=== PATIENT | male | born 1970 | race Caucasian/White ===

== ENCOUNTER 2018-02-07 03:51 | Emergency (ER) | payer OTHER ==
[2018-02-07] MEDS ORDERED: IBUPROFEN 400 MG TAB ONE (04:16)
[2018-02-07] MEDS ORDERED: IBUPROFEN 200 MG TAB PO ONE (04:16)
--- NOTE | 2018-02-07 04:19 | ER ---
Nurse's Notes [facility] Name: Chris Monaco Jr Age: 47 yrs Sex: Male : 1970 Arrival Date: 02/07/2018 Time: 03:52 Bed 19 Private MD: Diagnosis: Contusion of right foot Presentation: 02/07 04:04 Presenting complaint: Patient states: "I dropped a water cooler on my right foot. I jd3 think it might be broke.". Transition of care: patient was not received from another setting of care. Onset of symptoms was February 07, 2018. Risk Assessment: Do you want to hurt yourself or someone else? Patient reports no desire to harm self or others. Initial Sepsis Screen: Does the patient meet any 2 criteria? HR > 90 bpm. Yes Does the patient have a suspected source of infection? No. Patient's initial sepsis screen is negative. Care prior to arrival: None. 04:04 Method Of Arrival: Wheelchair jd3 04:04 Acuity: MECHELLE 3 jd3 Triage Assessment: 04:11 Injury Description: pt reported dropping a water cool on right foot. jd3 Historical: - Allergies: 04:06 No Known Allergies; jd3 - Home Meds: 04:06 Advil Oral [Active]; jd3 - PMHx: 04:06 back problems; jd3 - PSHx: 04:06 Appendectomy; jd3 - Immunization history:: Adult Immunizations up to date. - Social history:: Smoking status: Patient uses tobacco products, smokes one pack cigarettes per day. - Ebola Screening: : Patient negative for fever greater than or equal to 101.5 degrees Fahrenheit, and additional compatible Ebola Virus Disease symptoms. Screenin:11 Abuse screen: Denies threats or abuse. Nutritional screening: No deficits noted. jd3 Tuberculosis screening: No symptoms or risk factors identified. Fall Risk Ambulatory Aid- None/Bed Rest/Nurse Assist (0 pts). Gait- Weak (10 pts.). Mental Status- Oriented to own ability (0 pts). Total Abdi Fall Scale indicates No Risk (0-24 pts). Assessment: 04:09 General: Appears uncomfortable, Behavior is cooperative, appropriate for age. Pain: jd3 Complains of pain in dorsum of right foot Pain currently is 10 out of 10 on a pain scale. Quality of pain is described as sharp, Pain began suddenly, Aggravated by weight bearing. Neuro: Level of Consciousness is awake, alert, obeys commands, Oriented to person, place, time, situation. Cardiovascular: Capillary refill < 3 seconds Patient's skin is warm and dry. Respiratory: Airway is patent Respiratory effort is even, unlabored, Respiratory pattern is regular, symmetrical. GI: Abdomen is round Patient currently denies diarrhea, nausea, vomiting. : No signs and/or symptoms were reported regarding the genitourinary system. EENT: No signs and/or symptoms were reported regarding the EENT system. Derm: Skin is intact, Skin is dry, Skin is normal, Skin temperature is warm. Musculoskeletal: Circulation, motion, and sensation intact. Range of motion: intact in all extremities, Swelling present in right foot. 04:30 Reassessment: Patient appears in no apparent distress at this time. Patient and/or jd3 family updated on plan of care and expected duration. Pain level reassessed. Patient is alert, oriented x 3, equal unlabored respirations, skin warm/dry/pink. pt reported understanding of discharge instructions, pt assisted to front of ER with wheelchair. Vital Signs: 04:08 BP 159 / 94; Pulse 101; Resp 20 S; Temp 98.4(O); Pulse Ox 98% on R/A; Weight 108.86 kg jd3 (R); Height 6 ft. 1 in. (185.42 cm) (R); Pain 10/10; 04:08 Body Mass Index 31.66 (108.86 kg, 185.42 cm) jd3 ED Course: 03:52 Patient arrived in ED. ds1 03:56 Remberto Delong, AVERY is Primary Nurse. jd3 03:59 Amador Adkins MD is Attending Physician. gs 04:05 Triage completed. jd3 04:08 Arm band placed on. jd3 04:11 Patient has correct armband on for positive identification. Bed in low position. Call jd3 light in reach. Side rails up X 1. Adult w/ patient. 04:19 Earle Costa MD is Referral Physician. gs 04:20 Foot Right 3 View XRAY In Process Unspecified. EDMS 04:31 No provider procedures requiring assistance completed. Patient did not have IV access jd3 during this emergency room visit. Administered Medications: 04:18 Drug: Ibuprofen 600 mg Route: PO; jd3 04:31 Follow up: Response: Medication administered at discharge. jd3 Outcome: 04:19 Discharge ordered by . kedar 04:31 Discharged to home via wheelchair, with family. jd3 04:31 Condition: stable 04:31 Discharge instructions given to patient, family, Instructed on discharge instructions, follow up and referral plans. Demonstrated understanding of instructions, follow-up care. 04:32 Patient left the ED. jd3 Addendum: 02/10/2018 11:28 Addendum: Radiology Result: Spoke with patient who reports pain has improved. Has not s s followed up with ortho doctor as of yet, but plans to soon now due to possible small fracture. Pt is grateful for followup call. Signatures: Dispatcher [employer] [facility] Ivette Lopez ds1 Lauren Jay, AVERY RN Amador Jara MD MD gs Davies, Jonathon, RN RN jd3
--- NOTE | 2018-02-07 04:19 | EDPHYS ---
Physician Documentation [facility] Name: Chris Monaco Jr Age: 47 yrs Sex: Male : 1970 Arrival Date: 02/07/2018 Time: 03:52 Bed 19 Private MD: ED Physician Amador Adkins HPI: 02/07 04:16 This 47 yrs old Male presents to ER via Wheelchair with complaints of Foot gs Injury. 04:16 The patient presents with an injury. The complaints affect the right foot. Context: The gs problem was sustained at home, resulted from a heavy object falling, igloo. Onset: The symptoms/episode began/occurred acutely. Modifying factors: the symptoms are aggravated by weight bearing. Associated signs and symptoms: Pertinent negatives: numbness, weakness. Severity of symptoms: At their worst the symptoms were moderate, in the emergency department the symptoms are unchanged. Historical: - Allergies: 04:06 No Known Allergies; jd3 - Home Meds: 04:06 Advil Oral [Active]; jd3 - PMHx: 04:06 back problems; jd3 - PSHx: 04:06 Appendectomy; jd3 - Immunization history:: Adult Immunizations up to date. - Social history:: Smoking status: Patient uses tobacco products, smokes one pack cigarettes per day. - Ebola Screening: : Patient negative for fever greater than or equal to 101.5 degrees Fahrenheit, and additional compatible Ebola Virus Disease symptoms. ROS: 04:16 All other systems are negative. gs Exam: 04:16 Head/Face: Normocephalic, atraumatic. Neck: Trachea midline, no thyromegaly or masses gs palpated, and no cervical lymphadenopathy. Supple, full range of motion without nuchal rigidity, or vertebral point tenderness. No Meningismus. Cardiovascular: Regular rate and rhythm with a normal S1 and S2. No gallops, murmurs, or rubs. Normal PMI, no JVD. No pulse deficits. Respiratory: Lungs have equal breath sounds bilaterally, clear to auscultation and percussion. No rales, rhonchi or wheezes noted. No increased work of breathing, no retractions or nasal flaring. Back: No spinal tenderness. No costovertebral tenderness. Full range of motion. Skin: Warm, dry with normal turgor. Normal color with no rashes, no lesions, and no evidence of cellulitis. 04:16 Constitutional: The patient appears alert, awake. 04:16 Musculoskeletal/extremity: Extremities: noted in the dorsum of right foot: swelling, tenderness, There is no evidence of deformity, ROM: intact in all extremities, Circulation is intact in all extremities. Vital Signs: 04:08 BP 159 / 94; Pulse 101; Resp 20 S; Temp 98.4(O); Pulse Ox 98% on R/A; Weight 108.86 kg jd3 (R); Height 6 ft. 1 in. (185.42 cm) (R); Pain 10/10; 04:08 Body Mass Index 31.66 (108.86 kg, 185.42 cm) jd3 MDM: 04:02 Patient medically screened. 04:16 Differential diagnosis: fracture, sprain, arthritis. Data reviewed: vital signs, nurses gs notes. Response to treatment: the patient's symptoms have mildly improved after treatment, and as a result, I will discharge patient. 04:20 Counseling: I had a detailed discussion with the patient and/or guardian regarding: the gs presence of at least one elevated blood pressure reading (>120/80) during this emergency department visit. Special discussion: I have referred the patient to see his PCP for further evaluation of high blood pressure. 02/07 04:03 Order name: Foot Right 3 View XRAY Administered Medications: 04:18 Drug: Ibuprofen 600 mg Route: PO; jd3 04:31 Follow up: Response: Medication administered at discharge. jd3 Disposition: 02/07/18 04:19 Discharged to Home. Impression: Contusion of right foot. - Condition is Stable. - Discharge Instructions: Foot Contusion, Managing Your High Blood Pressure. - Medication Reconciliation Form, Thank You Letter, Antibiotic Education, Prescription Opioid Use form. - Follow up: Private Physician; When: 2 - 3 days; Reason: Re-evaluation by your physician. Follow up: Earle Costa MD; When: 2 - 3 days; Reason: Re-evaluation by your physician. Signatures: Dispatcher [employer] EDMS Amador Adkins MD MD gs Davies, Jonathon RN RN jd3 Corrections: (The following items were deleted from the chart) 04:32 04:19 02/07/2018 04:19 Discharged to Home. Impression: Contusion of right foot. jd3 Condition is Stable. Forms are Medication Reconciliation Form, Thank You Letter, Antibiotic Education, Prescription Opioid Use. Follow up: Private Physician; When: 2 - 3 days; Reason: Re-evaluation by your physician. Follow up: Earle Costa; When: 2 - 3 days; Reason: Re-evaluation by your physician. gs
--- NOTE | 2018-02-07 11:36 | RAD REPORT ---
EXAM DESCRIPTION: RAD - Foot Right 3 View - 02/07/2018 4:20 am CLINICAL HISTORY: PAIN Blunt trauma. COMPARISON: No comparisons FINDINGS: Minimal fragmentation at the base of the proximal phalanx of the fifth toe is present comp atible with fracture. Mild adjacent soft tissue swelling. Prominent calcaneal spurs are seen.
== END 2018-02-07 04:32 | disposition home or self-care (01) ==
LOC: ER 03:51
DX: S90.31XA Contusion of right foot, initial encounter (principal); F17.210 Nicotine dependence, cigarettes, uncomplicated; W20.8XXA Other cause of strike by thrown, projected or falling object, initial encounter; Y93.9 Activity, unspecified; Y92.009 Unspecified place in unspecified non-institutional (private) residence as the place of occurrence of the external cause; Y99.9 Unspecified external cause status
CPT/HCPCS: 99283

== ENCOUNTER 2025-01-09 05:54 | Emergency (ER) | payer OTHER ==
--- OUTSIDE RECORDS SUMMARY | 2025-01-09 06:01 | XMS REPORT | Clinical Summary ---
Author Name Unknown Organization [facility] Address [address] [place] [address] Care Team Providers Care Transfer Engineer Name Role Phone Marion Mireles MD Unavailable [phone] Kim Mohan MD Unavailable [phone] Brandi Alvarez MD Primary Care Provider Jacquelin Ruiz RN Unavailable + [phone] Linda Castaneda MD Unavailable Wesley Bragg MD Unavailable [phone] Unavailable [phone] Allergies No known active allergies Medications * This document contains information received from the source organization and may not represent a complete record from that organization. magnesium hydroxide 400 mg/5 mL suspension Take 15 mL (1,200 mg) by mouth 2 (two) times a day as needed. Active simethicone (MYLICON) 80 mg chewable tabletIndicati ons:Abdominal bloating Chew and swallow 1 tablet (80 mg) by mouth 4 (four) times a day as needed for flatulence (Gas, Abdominal Bloating). 160 tablet 5 10:20 AM CDT 025 Active Disabled Parking PlacardIndicat ions:Adenocarc inoma of pancreas I am requesting a disabled parking placard for this patient because he/she meets the [place] [employer] criteria for disabilities. The patient will need the disabled parking placard for this length of time: Permanent disability. 1 each 025 Active naloxone (Narcan) 4 mg/actuation nasal sprayIndicatio ns:Neoplasm related pain (acute) (chronic) Use 1 dose into one nostril as needed for opioid overdose. Do not prime or test the inhaler prior to adminstration. Give another dose into the other nostril after 2 to 3 minutes if the patient does not respond or responds and then relapses into respiratory depression. 2 each 5 10:20 AM CDT 025 Active ondansetron (ZOFRAN) 8 mg tabletIndicati ons:Adenocarci noma of pancreas Take 1 tablet (8 mg) by mouth every 8 (eight) hours as needed for nausea or vomiting ((First choice)). 30 tablet 025 Active prochlorperazi ne (COMPAZINE) 10 mg tabletIndicati ons:Adenocarci noma of pancreas Take 1 tablet (10 mg) by mouth every 6 (six) hours as needed for nausea or vomiting ((Second Choice)). 60 tablet 025 Active loperamide (Imodium A-D) 2 mg tabletIndicati ons:Adenocarci noma of pancreas 2 tabs po 1st loose stool, then 1 tab q2h until diarrhea free for 12 hours. May take 2 tabs q4hrs at night. (First Choice) 100 tablet 025 Active diphenoxylate- atropine (LOMOTIL) 2.5 mg-0.025 mg per tabletIndicati ons:Adenocarci noma of pancreas Take 1-2 tablets by mouth every 6 (six) hours as needed for diarrhea (loose stool.(Second choice)). Not to exceed 8 tablets per day 60 tablet 025 Active dexAMETHasone (DECADRON) 4 mg tabletIndicati ons:Adenocarci noma of pancreas Take 1 tablet (4 mg) by mouth daily for 3 days on days 2, 3, and 4 of chemotherapy. Keep extra tablets for future cycles. 36 tablet 2 025 Active lidocaine-pril ocaine (EMLA) 2.5-2.5% creamIndicatio ns:Metastatic malignant neoplasm to liver,Adenocar cinoma of pancreas Apply to port-a-cath approximately 45 minutes prior to use 30 g 025 Active apixaban (Eliquis) 5 mg tabletIndicati ons:Portal vein thrombosis Take 1 tablet (5 mg) by mouth every 12 (twelve) hours. 60 tablet 3 025 Active fentaNYL (DURAGESIC) patch 25 mcg/hrIndicati ons:Neoplasm related pain (acute) (chronic) Place 1 patch (25 mcg) on the skin every 72 hours. Remove old patch(es) before replacing new patch(es). 10 patch Active baclofen (LIORESAL) 10 mg tabletIndicati ons:Adenocarci noma of pancreas,Chron ic hiccup Take 1 tablet (10 mg) by mouth every 8 (eight) hours as needed for hiccups. 90 tablet 1 Active morphine (MSIR) 15 mg IR tabletIndicati ons:Cancer associated pain Take half a tablet (7.5 mg) every 4 hours for moderate pain (4-6/10) OR 1 tablet (15 mg) every 4 hours as needed for severe pain (7-10/10). 120 tablet Active furosemide (Lasix) 40 mg tabletIndicati ons:Peripheral edema Take 1 tablet (40 mg) by mouth twice daily. 60 tablet 1 025 Active HYDROcodone-ac etaminophen (NORCO) 7.5 mg-325 mg per tablet Take 1 tablet by mouth as needed. 025 2024 Discontinued Linzess 290 mcg cap Take 290 mcg by mouth every morning before breakfast. 2024 Discontinued HYDROcodone-ac etaminophen (NORCO) 10 mg-325 mg per tabletIndicati ons:Neoplasm related pain (acute) (chronic) Take 1 tablet by mouth every 6 (six) hours as needed for moderate pain. 30 tablet 025 2024 Discontinued(S top Taking at Discharge) fentaNYL (DURAGESIC) 12 mcg/hr transdermal patchIndicatio ns:Neoplasm related pain (acute) (chronic) Place 1 patch (12 mcg) on the skin every 72 hours for 30 days. Remove old patch(es) before replacing new patch(es). 10 patch 025 2024 Discontinued(S top Taking at Discharge) enoxaparin (LOVENOX) 80 mg/0.8 mL prefilled syringeIndicat ions:Portal vein thrombosis Inject 0.8 mL (80 mg) under the skin every 12 (twelve) hours. 60 each 10:20 AM CDT 2024 Discontinued fentaNYL (DURAGESIC) patch 25 mcg/hrIndicati ons:Neoplasm related pain (acute) (chronic) Place 1 patch (25 mcg) on the skin every 72 hours. Remove old patch(es) before replacing new patch(es). 10 patch 10:20 AM CDT 025 2024 Discontinued(R eorder) pancrelipase (CREON) 12,000 units-38,000 units-60,000 units capsuleIndicat ions:Chronic steatorrhea Take 1 capsule (12,000 Units) by mouth 3 (three) times a day with meals for 45 days. 200 capsule 10:20 AM CDT 2024 Discontinued(R eorder) morphine (MSIR) 15 mg IR tabletIndicati ons:Cancer associated pain Take half a tablet (7.5 mg) every 4 hours for moderate pain (4-6/10) OR 1 tablet (15 mg) every 4 hours as needed for severe pain (7-10/10). 90 tablet 10:20 AM CDT 2024 Discontinued(R eorder) pancrelipase (CREON) 12,000 units-38,000 units-60,000 units capsuleIndicat ions:Chronic steatorrhea Take 1 capsule (12,000 Units) by mouth 3 (three) times a day with meals for 30 days. 200 capsule 3 025 2024 furosemide (Lasix) 20 mg tabletIndicati ons:Edema, not otherwise specified Take 1 tablet (20 mg) by mouth twice daily. 60 tablet 025 2024 Discontinued morphine (MSIR) 15 mg IR tabletIndicati ons:Cancer associated pain Take half a tablet (7.5 mg) every 4 hours for moderate pain (4-6/10) OR 1 tablet (15 mg) every 4 hours as needed for severe pain (7-10/10). 120 tablet 025 2024 Discontinued(R eorder) morphine (MSIR) 15 mg IR tabletIndicati ons:Cancer associated pain Take half a tablet (7.5 mg) every 4 hours for moderate pain (4-6/10) OR 1 tablet (15 mg) every 4 hours as needed for severe pain (7-10/10). 120 tablet 025 2024 Discontinued(R eorder) morphine (MSIR) 15 mg IR tabletIndicati ons:Cancer associated pain Take half a tablet (7.5 mg) every 4 hours for moderate pain (4-6/10) OR 1 tablet (15 mg) every 4 hours as needed for severe pain (7-10/10). 120 tablet 025 2024 Discontinued(R eorder) Active Problems Problem Noted Date Diagnosed Date Neutropenia 12/24/2024 Peripheral edema 12/24/2024 Adenocarcinoma of pancreas 11/16/2024 Cancer Staging:Clinical:Stage IV(cT4, cM1) - Signed by Kimi Lee PA on 11/30/2024 Stress and adjustment reaction 11/16/2024 Cancer associated pain 11/16/2024 Severe protein-calorie malnutrition 11/15/2024 Overview (11/15/2024): Energy Intake: < or equal to 75% of EER for > or equal to 1 month Weight Loss: >20% in 1 yr (based on stated UBW) Subcutaneous Fat Loss: Moderate Muscle Loss: Moderate Long-term use of anticoagulants 11/12/2024 Neoplasm related pain (acute) (chronic) 11/12/19 Slow transit constipation 11/11/2024 Nausea alone 11/11/2024 Decrease in appetite 11/11/2024 Malignant neoplasm related fatigue 11/11/2024 Other psychological or physi magen stress, not elsewhere classified 11/11/2024 Other insomnia 11/11/2024 Jaundice 11/11/2024 Retroperitoneal mass 11/10/2024 Metastatic malignant neoplasm to liver Portal vein thrombosis 11/10/2024 Hyperbilirubinemia 11/10/2024 Abdominal pain 11/10/2024 Cancer with lung metastasis 11/10/2024 Stenosis of duodenum 11/10/2024 Mass of pancreas 11/10/2024 Obstructive hyperbilirubinemia 11/10/2024 Advance care planning 11/10/2024 Encounters * This document contains information received from the source organization and may not represent a complete record from that organization. Date Type Department Care Team Description 01/08/2025 Nurse Triage [facility] [address] [place] [address] Kelly Garcia APRN 01/05/2025 1:30 PM CDT Telemedicine [facility] Medical Oncology [address] [facility] 3rd [place] [address] Linda Castaneda MD Metastatic malignant neoplasm to liver (Primary Dx); Adenocarcinoma of pancreas; Peripheral edema 01/05/2025 Orders Only [facility] Medical Oncology [address] [facility] 3rd [place] [address] Kimi Lee PA 12/31/2024 1:00 PM CDT Nutrition Clinical Nutrition For your Nutrition appointment location directions please call: Brandi Alvarez MD Brown, Melanie P, RD Total bilirubin above reference range; Retroperitoneal mass; Stenosis of duodenum; Mass of pancreas; Obstructive hyperbilirubinemia; Neoplasm related pain (acute) (chronic); Portal vein thrombosis; Chronic steatorrhea; Abdominal bloating; Long-term use of anticoagulants; Jaundice; Other insomnia; Other psychological or physical stress, not elsewhere classified; Malignant neoplasm related fatigue; Decrease in appetite; Nausea alone; Slow transit constipation; Advance care planning; Stricture of bile duct; Hyperbilirubinemia; Metastatic malignant neoplasm to liver; Adenocarcinoma of pancreas; Unintentional weight loss 12/31/2024 Orders Only [facility] [address] [facility] Main [facility], 7th [place] [address] Kimi Lee PA Metastatic malignant neoplasm to liver (Primary Dx); Adenocarcinoma of pancreas 12/29/2024 1:45 PM CDT Ancillary Procedure MD Denis Coleman [address] [facility] 2nd [place] [address] Linda Castaneda MD Peripheral edema 12/29/2024 Travel 12/28/2024 Telephone [facility] [address] [address] Jacquelin Ruiz, RN TCM Follow Up 12/27/2024 Telephone [facility] MGMT [address] [place] [address] Jacquelin Ruiz RN TCM Follow Up 12/26/2024 3:48 PM CDT - 12/26/2024 11:59 PM CDT Hospital Encounter [facility] Main Building [address] [place] [address], 10th [place] [address] Kimi Lee PA Kim, Sungjun, RN Adenocarcinoma of pancreas (Primary Dx) Discharge Disposition: Home 12/24/2024 12:00 PM CDT Infusion [facility] Blue [address] [facility], 8th [place] [address] Kimi Lee PA Balason, Adda Rica F, RN Adenocarcinoma of pancreas (Primary Dx) 12/24/2024 9:30 AM CDT Follow-Up [facility] [address] [place] [address], 7th [place] [address] Linda Castaneda MD Adenocarcinoma of pancreas (Primary Dx); Metastatic malignant neoplasm to liver; Peripheral edema; Neoplasm related pain (acute) (chronic); Neutropenia, not otherwise specified 12/24/2024 8:38 AM CDT - 12/24/2024 11:59 PM CDT Hospital Encounter [facility] [address] [place] [address] Kimi Lee PA Adenocarcinoma of pancreas Discharge Disposition: Home 12/24/2024 Travel 12/23/2024 Orders Only [facility] [address] [place] [address], 7th [place] [address] Katy Holt, PharmD 12/18/2024 Nurse Triage [facility] [address] [place], [place] [phone] Kelly Garcia APRN 12/17/2024 4:00 PM CDT - 12/17/2024 11:59 PM CDT Hospital Encounter MD Denis [facility] [address] [place] [address] Brandi Alvarez MD Wu, Pei H, PA-C Follow-up 2 weeks (Primary Dx); Central venous catheter in situ Discharge Disposition: Home 12/17/2024 Orders Only [facility] [address] [place] [address], [address] [place], [place] [phone] Katy Holt, PharmD 12/16/2024 10:00 AM CDT Telephone [facility] [address] [place] [address], [address] [place], [place] [phone] Linda Castaneda MD 12/16/[address] [address] Jacquelin Ruiz, RN [facility] Follow Up 12/15/2024 Orders Only Gastrointestinal [address], [address] [place], [place] [phone] Nadia Horvath RPH Adenocarcinoma of pancreas (Primary Dx) 12/13/2024 Telephone MD Denis Coleman - Infusion [address] [address] Elicia Matson RN 12/12/2024 12:46 PM CDT - 12/12/2024 11:59 PM CDT Hospital Encounter [facility] Treatment [facility] - [address], [facility] [place] [address] Kimi Lee PA Minoza, Jovelyn G, RN Adenocarcinoma of pancreas (Primary Dx) Discharge Disposition: Home 12/12/2024 Orders Only [facility] [address] [place] [address], 7th [place] [address] Linda Castaneda MD 12/12/2024 Documentation [facility] [address] [place] [address], 7th [place] [address] Katy Pham MD 12/10/2024 10:15 AM CDT Infusion [facility] - Infusion [address] [address] Linda Castaneda MD Bourgeois, Dominique L, AVERY Metastatic malignant neoplasm to liver (Primary Dx); Adenocarcinoma of pancreas 12/10/2024 Orders Only [facility] [address] [place] [address], [address] [place] [address] [place] [address] Katy Holt, PharmD 12/10/2024 Orders Only [facility] [address] [place] [address], [address] [place] [address] Kimi Lee PA Edema, not otherwise specified (Primary Dx) 12/10/2024 Travel 12/09/2024 Telephone [facility] MG[facility] [address] [place] [address] Jacquelin Ruiz, AVERY TCM Follow Up 12/08/2024 Orders Only [facility] - GI Medical Oncology [address] [address] [facility] 3rd [place] [address] Linda Castaneda MD Portal vein thrombosis (Primary Dx); Chronic steatorrhea 12/04/2024 Nurse Triage [facility] PHYSICIAN [address] [place] [address] Jaycee Escalera PA 12/03/2024 12:44 PM CDT Anesthesia Event [facility] [address] [place] [address] Luis Mcneal MD Tray, Chi E, FIELD EVIDENCE TECHNICIAN 12/03/2024 9:26 AM CDT - 12/03/2024 11:59 PM CDT Hospital Encounter [facility] [address] [place] [address] Kimi Lee PA Irwin, David, MD Idowu, Olakunle, MD Tsui, Chi E, CRNA Adenocarcinoma of pancreas Discharge Disposition: Home 12/03/2024 Travel 12/02/2024 4:30 PM CDT POEM Appointments [facility] [address] [place] [address], 6th Floor [facility] [place] [address] Adam Aponte PA Metastatic malignant neoplasm to liver 12/02/2024 9:30 AM CDT - 12/02/2024 11:59 PM CDT Hospital Encounter [facility] [address] [place] [address] Brandi Alvarez MD Wu, Pei H, PA-C Adenocarcinoma of pancreas (Primary Dx); Encounter for other preprocedural examination Discharge Disposition: Home 12/01/2024 11:59 PM CDT Anesthesia Event [facility] [address] [place] [address], 6th [facility] [place] [address] Khadra Jesus, RN 12/01/2024 Orders Only [facility] - GI Medical Oncology [address] [address] [facility] 3rd [place] [address] Kimi Lee PA Metastatic malignant neoplasm to liver (Primary Dx); Adenocarcinoma of pancreas 12/01/2024 Telephone [facility] [address] [phone] Jacquelin Ruiz, RN TCM Follow Up 11/30/2024 Prep for Surgery [facility] [address] [facility], 8th Floor [address] [place], [place] [phone] Nora Vigil, DISH UP PERSON 11/30/2024 Orders Only [facility] [address] [place] [address] Adam Aponte PA Metastatic malignant neoplasm to liver (Primary Dx) 11/29/2024 Orders Only [facility] [address] [place] [address], 7th [place] [address] Kimi Lee PA Adenocarcinoma of pancreas (Primary Dx) 11/29/2024 Lab Requisition [facility] HEMATOPATH ADMIN [address] [place] [address] [address] [place] [address] Kimi Lee PA 11/26/2024 11:00 AM CDT - 11/26/2024 11:59 PM CDT Hospital Encounter [facility] [address] [place] [address], 4th [place] [address] Wesley Bragg MD Neoplasm related pain (acute) (chronic) Discharge Disposition: Home 11/26/2024 10:00 AM CDT Consult [facility] [address] [place] [address], [address] [place], [place] [phone] Linda Castaneda MD Adenocarcinoma of pancreas (Primary Dx); Metastatic malignant neoplasm to liver; Unintentional weight loss; Metastatic adenocarcinoma to bilateral lungs; 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, not otherwise specified; Neoplasm related pain (acute) (chronic); Constipation, not otherwise specified; Tobacco use; Portal vein thrombosis; Peripheral edema 11/26/2024 8:57 AM CDT - 11/26/2024 10:59 AM CDT Hospital Encounter [facility] [address] [place] [address] Kimi Lee PA Metastatic malignant neoplasm to liver; Adenocarcinoma of pancreas Discharge Disposition: Home 11/26/2024 Orders Only [facility] [address] [place] [address], [address] [place], [place] [phone] Katy Holt, PharmD Adenocarcinoma of pancreas (Primary Dx) 11/26/2024 Travel 11/25/2024 Refill [facility] [address] [place], [place] [phone] Regino Bedoya DO 11/25/2024 Telephone [facility] MGMT [address] [place] [address] Jacquelin Ruiz RN TCM Follow Up 11/24/2024 Orders Only [facility] [address] [place] [address] [place] [address] Kimi Lee PA Metastatic malignant neoplasm to liver (Primary Dx); Adenocarcinoma of pancreas 11/19/2024 Documentation [facility] [address] [place] [address], 9th [place] [address] Niya Wu, RN 11/18/2024 Telephone [facility] [address] [place] [address] Mir Feliciano, DISH UP PERSON Discharge Call 11/18/2024 Telephone [facility] [address] [place] [address] Jacquelin Ruiz, RN [facility] Initial Call 11/17/2024 Documentation [facility] [address] [place] [address], 9th [place] [address] Niya Wu, AVERY 11/16/2024 Telephone [facility] [address] [place] [address] Jacquelin Ruiz, AVERY [facility] Initial Call 11/16/2024 Documentation [facility] [address] [place] [address] Jacquelin Ruiz, RN 11/11/2024 12:06 PM CDT Anesthesia Event [facility] [address] [place] [address], 5th Floor [address] [place] [phone] Kathy Scott MD 11/11/2024 11:25 AM CDT - 11/11/2024 1:30 PM CDT Surgery [facility] [address] [place] [address], 5th Floor [address] [place] [phone] Quintin Godinez MD DIAGNOSTIC UPPER GASTROINTESTINAL ENDOSCOPY 11/10/2024 6:07 AM CDT - 11/16/2024 9:34 AM CDT Hospital Encounter MAIN [address] [place] [address] Alan Catalan MD Sadiq, Nazia Mohammad, MD Omara, Ayman, MD Lane, John S, DO Leal Alviarez, Daniel J, MD Adenocarcinoma of pancreas (Primary Dx); Total bilirubin above reference range; Retroperitoneal mass; Stenosis of duodenum; Mass of pancreas; Obstructive hyperbilirubinemia; Neoplasm related pain (acute) (chronic); Portal vein thrombosis; Chronic steatorrhea; Abdominal bloating; Long-term use of anticoagulants; Jaundice; Other insomnia; Other psychological or physical stress, not elsewhere classified; Malignant neoplasm related fatigue; Decrease in appetite; Nausea alone; Slow transit constipation; Advance care planning; Stricture of bile duct; Hyperbilirubinemia; Metastatic malignant neoplasm to liver; Cancer associated pain Discharge Disposition: Home 11/10/2024 [facility] - Gastroenterology, Hepatology & Nutrition [address] [place] [address] Main [facility], 7th [place] [address] Rico Pagan MD Mass of pancreas (Primary Dx); Stenosis of duodenum; Obstructive hyperbilirubinemia 11/10/2024 Travel 11/09/2024 [facility] [address] [place] [address] Main [facility], 9th [place] [address] Brandi Alvarez MD 11/09/2024 [facility] Medicine Center [address] [place] [address] Main [facility], 9th [place] [address] Brandi Alvarez MD 11/09/2024 Travel 11/06/2024 5:57 AM CDT - 11/06/2024 11:59 PM CDT Hospital Encounter [facility] [address] [place] [address], 3rd [place] [address] Bernardo Muñiz APRN Multiple nodules of lung Discharge Disposition: Home 11/05/2024 11:00 AM CDT Telemedicine [facility] [address] [place] [address] Main [facility], 9th [place] [address] Brandi Alvarez MD Cyst of pancreas (Primary Dx); Retroperitoneal lymphadenopathy; Liver mass; Abnormal finding on diagnostic imaging of other abdominal region including retroperitoneum; Retroperitoneal mass <Unspecified side; Unspecified site; Intra-abdominal and pelvic swelling, mass and lump>; Neoplasm related pain (acute) (chronic) 11/04/2024 3:00 PM CDT NPR [facility] PATIENT ACCESS Brandi Alvarez MD 11/04/2024 Orders Only Main Interventional Radiology [address] [facility], 3rd [place] [address] Scarlet Anne PA-C Procedure indicated (Primary Dx) 11/04/2024 Telephone MD [facility] [address] [place] [address] Haley Chiang MA 11/04/2024 Orders Only [facility] [address] [facility] Main [facility], 9th [place] [address] Bernardo Muñiz APRN Liver mass (Primary Dx); Multiple nodules of lung 11/03/2024 8:00 PM CDT Ancillary Procedure [facility] [address] [place] [address] Brandi Alvarez MD Cancer 11/02/2024 Telephone [facility] PATIENT ACCESS Carter Maxwell RN after 01/10/2024 Surgical History Surgery Date Site/Laterality Comments APPENDECTOMY 1986 NOSE SURGERY 08/18/1990 - 1 plastic surgery [place] ESOPHAGOGASTRODUODENOSCOP Y TRANSORAL DIAGNOSTIC 11/11/2024 Esophagus/N/A Procedure: DIAGNOSTIC UPPER GASTROINTESTINAL ENDOSCOPY; Surgeon: Quintin Godinez MD; Location: MAIN ENDOSCOPY; Service: GASTROENTEROLOGY Medical devices from this surgery are in the Medical Devices section. [place] ERCP STENT PLACEMENT BILIARY/PANCREATIC DUCT 11/11/2024 N/A Procedure: ENDOSCOPIC RETROGRADE CHOLANGIOPANCREATOGRAPHY WITH PLACEMENT OF STENT OF BILE DUCT; Surgeon: Quintin Godinez MD; Location: MAIN ENDOSCOPY; Service: GASTROENTEROLOGY Medical devices from this surgery are in the Medical Devices section. [place] EGD INTRMURAL US NEEDLE ASPIRATE/BIOPSY ESOPHAGS 11/11/2024 N/A Procedure: UPPER GASTROINTESTINAL ENDOSCOPY OF ESOPHAGUS, STOMACH, AND DUODENUM AND JEJUNUM WITH ENDOSCOPIC ULTRASOUND EXAMINATION OF ESOPHAGUS AND INTRAMURAL FNA USING TRANSENDOSCOPIC ULTRASOUND GUIDANCE; Surgeon: Quintin Godinez MD; Location: MAIN ENDOSCOPY; Service: GASTROENTEROLOGY Medical devices from this surgery are in the Medical Devices section. Medical History Medical History Date Comments Arthritis Mass of pancreas Portal vein thrombosis Cancer with lung metastasis Stenosis of duodenum Nausea Constipation Family History Medical History Relation Name Comments Brain cancer Brother Liver cancer Father farhan Lung cancer Father farhan Relation Name Status Comments Brother Father farhan Social History Tobacco Use Types Packs/Day Years Used Date Smoking Tobacco: Some Days Cigarettes 1 37.1 Started: 11/21/1987 Smokeless Tobacco: Never Tobacco Cessation:Ready to Q uit: Yes Alcohol Use Standard Drinks/Week Comments Not Currently 0 (1 standard drink = 0.6 oz pur e alcohol) AUDIT-C Answer Date Recorded Q1: How often do you have a drink containing alcohol? Never 11/10/2024 Q2: How many drinks containi ng alcohol do you have on a typical day when you are drinking? Patient does not drink Q3: How often do you have si x or more drinks on one occasion? Never 11/10/2024 Sex and Gender Information Value Date Recorded Sex Assigned at Not on file Legal Sex Male 1:54 PM CDT Gender Identity Not on file Sexual Orientation Not on file Obstetrics History Last Filed Vital Signs Vital Sign Reading Time Taken Comments Blood Pressure 97/63 12/26/2024 4:09 PM CDT Pulse 95 12/26/2024 4:09 PM CDT Temperature 36.8 °C (98.2 °F) 12/26/2024 4:09 PM CD T Respiratory Rate 15 12/26/2024 4:09 PM CDT Oxygen Saturation 100% 12/26/2024 4:09 PM CDT Inhaled Oxygen Concentration - - Weight 90.7 kg (199 lb 15.3 oz) 025 4:09 PM CDT Height 179 cm (5' 10.47") 12/10/2024 10 :30 AM CDT Body Mass Index 28.31 12/10/2024 10:30 AM CDT Plan of Treatment Upcoming Encounters Date Type Department Care Team (Late st Contact Info) Description 01/14/2025 7:00 AM CDT Lab [facility] - [facility] [address] [address] Kimi Lee PA [address] [place] [phone] [email or web address] 01/14/2025 8:00 AM CDT Infusion MD [facility] [place] - Infusion [address] [place] [address] 4[address] [place] [address] Kimi Lee PA [address] [place] [phone] [email or web address] 01/16/2025 4:45 PM CDT Appointment [facility] - Main Building [address] [place] [address], 2nd Floor, Elev[place] [address] Kimi Lee PA [address] [place] [phone] [email or web address] 01/26/2025 1:00 PM CDT Nutrition Clinical Nutrition For your Nutrition appointment location directions please call: Brandi Alvarez MD [address] [place] [phone] [email or web address] [email or web address], [email or web address] [address] [place] [phone] [email or web address] 01/28/2025 8:15 AM CDT Lab MD [facility] [place] - [facility] [address] [place] [address] 1[address] [place] [address] Kimi Lee PA [address] [place] [phone] [email or web address] 01/28/2025 8:30 AM CDT Telemedicine [facility] [address] [place] [address], 7th [place] [address] Linda Castaneda MD [address] [place] [phone] [email or web address] 01/28/2025 9:00 AM CDT Infusion MD [facility] [place] - Infusion [address] [place] [address] Kimi Lee PA [address] [place] [phone] [email or web address] 01/30/2025 2:45 PM CDT Appointment [facility] - Main [address], 2nd Floor, Elev[place] [address] Kimi eLe PA [address] [place] [phone] [email or web address] 02/11/2025 7:45 AM CDT Lab MD [facility] [place] [facility] [address] [place] [address] Kimi Lee PA [address] [place] [phone] [email or web address] 02/11/2025 8:45 AM CDT Infusion MD [facility] [place] - Infusion [address] [place] [phone] Kimi Lee PA [address] [place] [phone] [email or web address] Health Maintenance Due Date Last Done Comments COVID-19 Vaccine (#1) 1975 Pneumococcal Vaccine: 50+ Years (1 of 2 - PCV) 989 Influenza Vaccine (Season Ended) 2025 Medical Devices Implanted Type Area Director Of Dementia Operations Device Identifier Shelf Expiration Date Model / Serial / Lot Elidia Marcos 8fr - [id number] Implanted:Qty: 1 on 12/03/2024 by Mark Zheng MD at [facility] Implant Right: Chest [employer] [id number] 10/15/2025 [id number] / / [id number] Wallflex Biliary Uncovered Stent [address] - [id number] Implanted:Qty: 1 on 11/11/2024 by Quintin Godinez MD at [facility] [place] Stent N/A: Bile Duct Barnana RAPHAEL [id number] 06/28/2026 [id number] / / [id number] Procedures Procedure Name Priority Date/Time Associated Diagnosis Comments US LEG VENOUS DOPPLER BILATERAL Routine 12/29/2024 3:28 PM CDT Peripheral edema DIFFERENTIAL Routine 12/24/2024 8:54 AM CDT Adenocarcinoma of pancreas .CBC Routine 12/24/2024 8:54 AM CDT Adenocarcinoma of pancreas CARBOHYDRATE ANTIGEN 19-9 Routine 2024 8:54 AM CDT Adenocarcinoma of pancreas COMPREHENSIVE METABOLIC PANEL Routine 8:54 AM CDT Adenocarcinoma of pancreas COMPLETE BLOOD COUNT W/ DIFFERENTIAL Routine 12/24/2024 8:54 AM CDT Adenocarcinoma of pancreas DIRECT AND INDIRECT BILIRUBIN Routine 9:24 AM CDT Adenocarcinoma of pancreas DIFFERENTIAL Routine 12/10/2024 9:24 AM CDT Adenocarcinoma of pancreas .CBC Routine 12/10/2024 9:24 AM CDT Adenocarcinoma of pancreas CARBOHYDRATE ANTIGEN 19-9 Routine 2024 9:24 AM CDT Adenocarcinoma of pancreas COMPREHENSIVE METABOLIC PANEL Routine 9:24 AM CDT Adenocarcinoma of pancreas COMPLETE BLOOD COUNT W/ DIFFERENTIAL Routine 12/10/2024 9:24 AM CDT Adenocarcinoma of pancreas IR FL PORT PLACEMENT 75 STAT 12/04/19 2:17 PM CDT Adenocarcinoma of pancreas TYPE AND SCREEN Routine 12/03/2024 9:23 AM CDT Metastatic malignant neoplasm to liver PROTHROMBIN TIME Routine 12/03/2024 9:23 AM CDT Metastatic malignant neoplasm to liver SHEREE MCCARTHY MDA APPLE - TISSUE (MUTATION ANALYSIS PRECISION PANEL-TISSUE) Routine 11/26/2024 10:55 AM CDT Adenocarcinoma of pancreas DEMETRIUS LO MD RNA HOLD Routine 11/26/2024 10:55 AM CDT Adenocarcinoma of pancreas NGS BLOOD CONTROL Routine 11/26/2024 9:08 AM CDT DIFFERENTIAL Routine 11/26/2024 9:08 AM CDT Metastatic malignant neoplasm to liver Adenocarcinoma of pancreas DIRECT AND INDIRECT BILIRUBIN Routine 9:08 AM CDT Metastatic malignant neoplasm to liver Adenocarcinoma of pancreas .CBC Routine 11/26/2024 9:08 AM CDT Metastatic malignant neoplasm to liver Adenocarcinoma of pancreas CARBOHYDRATE ANTIGEN 19-9 Routine 2024 9:08 AM CDT Metastatic malignant neoplasm to liver Adenocarcinoma of pancreas LACTATE DEHYDROGENASE Routine 11/26/2024 9:08 AM CDT Metastatic malignant neoplasm to liver Adenocarcinoma of pancreas PHOSPHORUS LEVEL Routine 11/26/2024 9:08 AM CDT Metastatic malignant neoplasm to liver Adenocarcinoma of pancreas MAGNESIUM LEVEL Routine 11/26/2024 9:08 AM CDT Metastatic malignant neoplasm to liver Adenocarcinoma of pancreas COMPREHENSIVE METABOLIC PANEL Routine 9:08 AM CDT Metastatic malignant neoplasm to liver Adenocarcinoma of pancreas COMPLETE BLOOD COUNT W/ DIFFERENTIAL Routine 11/26/2024 9:08 AM CDT Metastatic malignant neoplasm to liver Adenocarcinoma of pancreas .CBC Routine 11/16/2024 12:51 AM CDT HEPATIC FUNCTION PANEL Routine 12:51 AM CDT PHOSPHORUS LEVEL Routine 11/16/2024 12:51 AM CDT MAGNESIUM LEVEL Routine 11/16/2024 12:51 AM CDT COMPLETE BLOOD COUNT W/ DIFFERENTIAL Routine 11/16/2024 12:51 AM CDT BASIC METABOLIC PANEL, CALCI UM TOTAL Routine 11/16/2024 12:51 AM CDT ANTI-XA LEVEL Routine 11/15/2024 12:39 PM CDT .CBC Routine 11/15/2024 5:55 AM CDT BASIC METABOLIC PANEL, CALCI UM TOTAL Routine 11/15/2024 5:55 AM CDT COMPLETE BLOOD COUNT W/ DIFFERENTIAL Routine 11/15/2024 5:55 AM CDT MAGNESIUM LEVEL Routine 11/15/2024 5:55 AM CDT PHOSPHORUS LEVEL Routine 11/15/2024 5:55 AM CDT HEPATIC FUNCTION PANEL Routine 5:55 AM CDT .CBC Routine 11/14/2024 5:44 AM CDT COMPLETE BLOOD COUNT W/ DIFFERENTIAL Routine 11/14/2024 5:44 AM CDT BASIC METABOLIC PANEL, CALCI UM TOTAL Routine 11/14/2024 5:43 AM CDT MAGNESIUM LEVEL Routine 11/14/2024 5:43 AM CDT PHOSPHORUS LEVEL Routine 11/14/2024 5:43 AM CDT HEPATIC FUNCTION PANEL Routine 12:11 AM CDT .CBC Routine 11/13/2024 5:38 AM CDT BASIC METABOLIC PANEL, CALCI UM TOTAL Routine 11/13/2024 5:38 AM CDT COMPLETE BLOOD COUNT W/ DIFFERENTIAL Routine 11/13/2024 5:38 AM CDT MAGNESIUM LEVEL Routine 11/13/2024 5:38 AM CDT PHOSPHORUS LEVEL Routine 11/13/2024 5:38 AM CDT HEPATIC FUNCTION PANEL Routine 5:38 AM CDT .CBC Routine 11/12/2024 5:59 AM CDT BASIC METABOLIC PANEL, CALCI UM TOTAL Routine 11/12/2024 5:59 AM CDT COMPLETE BLOOD COUNT W/ DIFFERENTIAL Routine 11/12/2024 5:59 AM CDT MAGNESIUM LEVEL Routine 11/12/2024 5:59 AM CDT PHOSPHORUS LEVEL Routine 11/12/2024 5:59 AM CDT HEPATIC FUNCTION PANEL Routine 5:59 AM CDT SHEREE MCCARTHY ARCHIVED MATERIAL RETRIEVAL Routine 11/11/2024 12:47 PM CDT Stenosis of duodenum Mass of pancreas Obstructive hyperbilirubinemia CYTOLOGY IMAGE-GUIDED FNA INTERPRETATION Routine 11/11/2024 12:47 PM CDT Stenosis of duodenum Mass of pancreas Obstructive hyperbilirubinemia FL ENDOSCOPY FLUOROSCOPY Routine 025 11:57 AM CDT KS EGD INTRMURAL US NEEDLE ASPIRATE/BIOPSY ESOPHAGS 11/11/2024 11:56 AM CDT Stenosis of duodenum Mass of pancreas Obstructive hyperbilirubinemia KS ERCP STENT PLACEMENT BILIARY/PANCREATIC DUCT 11/11/2024 11:56 AM CDT Stenosis of duodenum Mass of pancreas Obstructive hyperbilirubinemia KS ESOPHAGOGASTRODUODENOSCOP Y TRANSORAL DIAGNOSTIC 11/11/2024 11:56 AM CDT Stenosis of duodenum Mass of pancreas Obstructive hyperbilirubinemia .CBC Routine 11/11/2024 6:00 AM CDT LACTIC ACID, VENOUS Routine 11/11/2024 6:00 AM CDT BASIC METABOLIC PANEL, CALCI UM TOTAL Routine 11/11/2024 6:00 AM CDT COMPLETE BLOOD COUNT W/ DIFFERENTIAL Routine 11/11/2024 6:00 AM CDT MAGNESIUM LEVEL Routine 11/11/2024 6:00 AM CDT PHOSPHORUS LEVEL Routine 11/11/2024 6:00 AM CDT XR ABDOMEN 1 VW PORTABLE Routine 025 6:[address] ABDOMEN PELVIS W CONTRAST STAT 8:54 AM CDT .CBC STAT 11/10/2024 6:46 AM CDT LACTIC ACID, VENOUS STAT 11/10/2024 6:46 AM CDT LIPASE LEVEL STAT 11/10/2024 6:46 AM CDT HEPATIC FUNCTION PANEL STAT 6:46 AM CDT BASIC METABOLIC PANEL, CALCI UM TOTAL STAT 11/10/2024 6:46 AM CDT COMPLETE BLOOD COUNT W/ DIFFERENTIAL STAT 11/10/2024 6:46 AM CDT CONFIRM ABORH TYPE Routine 11/09/2024 9:47 AM CDT Procedure indicated DIRECT AND INDIRECT BILIRUBIN Routine 9:46 AM CDT Cyst of pancreas Retroperitoneal lymphadenopathy Liver mass Abnormal finding on diagnostic imaging of other abdominal region including retroperitoneum .CBC Routine 11/09/2024 9:46 AM CDT Procedure indicated BETA 2 MICROGLOBULIN Routine 11/09/2024 9:46 AM CDT Cyst of pancreas Retroperitoneal lymphadenopathy Liver mass Abnormal finding on diagnostic imaging of other abdominal region including retroperitoneum ALPHA FETOPROTEIN TUMOR MARKER Routine 0 11/09/2024 9:46 AM CDT Cyst of pancreas Retroperitoneal lymphadenopathy Liver mass Abnormal finding on diagnostic imaging of other abdominal region including retroperitoneum LACTATE DEHYDROGENASE Routine 11/09/2024 9:46 AM CDT Cyst of pancreas Retroperitoneal lymphadenopathy Liver mass Abnormal finding on diagnostic imaging of other abdominal region including retroperitoneum CARCINOEMBRYONIC ANTIGEN Routine 025 9:46 AM CDT Cyst of pancreas Retroperitoneal lymphadenopathy Liver mass Abnormal finding on diagnostic imaging of other abdominal region including retroperitoneum CARBOHYDRATE ANTIGEN 19-9 Routine 2024 9:46 AM CDT Cyst of pancreas Retroperitoneal lymphadenopathy Liver mass Abnormal finding on diagnostic imaging of other abdominal region including retroperitoneum LIPASE LEVEL Routine 11/09/2024 9:46 AM CDT Cyst of pancreas Retroperitoneal lymphadenopathy Liver mass Abnormal finding on diagnostic imaging of other abdominal region including retroperitoneum AMYLASE LEVEL Routine 11/09/2024 9:46 AM CDT Cyst of pancreas Retroperitoneal lymphadenopathy Liver mass Abnormal finding on diagnostic imaging of other abdominal region including retroperitoneum HEPATITIS C VIRUS ANTIBODY Routine 11/09 9:46 AM CDT Cyst of pancreas Retroperitoneal lymphadenopathy Liver mass Abnormal finding on diagnostic imaging of other abdominal region including retroperitoneum HEPATITIS B CORE ANTIBODY Routine 2024 9:46 AM CDT Cyst of pancreas Retroperitoneal lymphadenopathy Liver mass Abnormal finding on diagnostic imaging of other abdominal region including retroperitoneum HEPATITIS B SURFACE ANTIGEN Routine 10/17 9:46 AM CDT Cyst of pancreas Retroperitoneal lymphadenopathy Liver mass Abnormal finding on diagnostic imaging of other abdominal region including retroperitoneum HEPATITIS B SURFACE ANTIBODY Routine 9:46 AM CDT Cyst of pancreas Retroperitoneal lymphadenopathy Liver mass Abnormal finding on diagnostic imaging of other abdominal region including retroperitoneum APTT Routine 11/09/2024 9:46 AM CDT Cyst of pancreas Retroperitoneal lymphadenopathy Liver mass Abnormal finding on diagnostic imaging of other abdominal region including retroperitoneum COMPREHENSIVE METABOLIC PANEL Routine 9:46 AM CDT Cyst of pancreas Retroperitoneal lymphadenopathy Liver mass Abnormal finding on diagnostic imaging of other abdominal region including retroperitoneum TYPE AND SCREEN Routine 11/09/2024 9:46 AM CDT Procedure indicated PROTHROMBIN TIME Routine 11/09/2024 9:46 AM CDT Procedure indicated COMPLETE BLOOD COUNT W/ DIFFERENTIAL Routine 11/09/2024 9:46 AM CDT Procedure indicated EKG, 12-LEAD (SCHEDULED) Routine 11/09/2024 Cyst of pancreas Retroperitoneal lymphadenopathy Liver mass Abnormal finding on diagnostic imaging of other abdominal region including retroperitoneum CT CHEST W CONTRAST Routine 11/06/2024 7:24 AM CDT Multiple nodules of lung POC CREATININE Routine 11/06/2024 6:[address] ABDOMEN AND PELVIS Routine 2024 8:08 PM CDT Cancer after 01/10/2024 Results * US Leg Venous Doppler Bilateral (12/29/2024 3:28 PM CDT) Anatomical Region Laterality Modality Leg, Extremity Ultrasound 12/29/2024 8:13 PM CDT Impressions 12/29/2024 8:16 PM CDT No deep venous thrombosis in the bilateral lower extremities. ACTIONABLE ITEMS/RECOMMENDATIONS*: See impression and findings. *An Actionable Finding is a finding that may be unrelated to the original reason for imaging but potentially actionable, meaning further investigation may be necessary. The Actionable Findings Vigilance Unit (AFVU) assists medical providers with responding to additional radiologic findings that are unexpected and potentially actionable. Narrative 12/29/2024 8:16 PM CDT Examination: US LEG VENOUS DOPPLER BILATERAL on 12/29/2024 3:28 PM. Clinical History: Peripheral edema. Indication: Edema, bilateral 3+ edema in patient with PE, evaluate for proximal clot. Comparison: None available. TECHNIQUE: Sonographic evaluation of the deep veins of the bilateral lower extremities is performed assessing grayscale appearance, color and spectral Doppler flow and compressibility. FINDINGS: The bilateral common femoral, femoral, proximal deep femoral, and popliteal veins and saphenofemoral junction demonstrate color flow and compressibility. The visualized bilateral peroneal, anterior tibial and posterior tibial veins demonstrate color flow. Edema is identified in the subcutaneous soft tissues of the bilateral lower extremities. Of note, limited visualization/evaluation of the bilateral external iliac veins did not demonstrate any definite thrombus. Incidental note was made of probable ascites in the pelvis. Procedure Note Beba Means MD - 12/29/2024 Examination: US LEG VENOUS DOPPLER BILATERAL on 12/29/2024 3:28 PM. Clinical History: Peripheral edema. Indication: Edema, bilateral 3+ edema in patient with PE, evaluate forproximal clot. Comparison: None available. TECHNIQUE: Sonographic evaluation of the deep veins of the bilaterallower extremities is performed assessing grayscale appearance, color andspectral Doppler flow and compressibility. FINDINGS: The bilateral common femoral, femoral, proximal deep femoral, andpopliteal veins and saphenofemoral junction demonstrate color flow andcompressibility. The visualized bilateral peroneal, anterior tibial and posterior tibialveins demonstrate color flow. Edema is identified in the subcutaneous soft tissues of the bilaterallower extremities. Of note, limited visualization/evaluation of the bilateral external iliacveins did not demonstrate any definite thrombus. Incidental note was made of probable ascites in the pelvis. IMPRESSION: No deep venous thrombosis in the bilateral lower extremities. ACTIONABLE ITEMS/RECOMMENDATIONS*: See impression and findings. *An Actionable Finding is a finding that may be unrelated to the originalreason for imaging but potentially actionable, meaning furtherinvestigation may be necessary. The Actionable Findings Vigilance Unit(AFVU) assists medical providers with responding to additional radiologicfindings that are unexpected and potentially actionable. us Linda Castaneda MD [facility] US ORDERABLES Final Result * (ABNORMAL) .CBC (12/24/2024 8:54 AM CDT) Only the most recent of11 resultswithin the time period is included. White Blood Cell 2.5(L) 4.1 - 10.5 K/uL 12/24/2024 10:51 AM CDT [facility] Red Blood Cell 3.31(L) 4.30 - 6.04 M/uL 12/24/2024 10:51 AM CDT [facility] Hemoglobin 11.0(L) 13.3 - 17.4 g/dL 12/24/2024 10:51 AM CDT [facility] Hematocrit 31.2(L) 39.5 - 51.8 % 12/24/2024 10:51 AM CDT [facility] Mean Cell Volume 94 82 - 99 fL 12/24/2024 10:51 AM CDT [facility] Mean Cell Hemoglobin 33.2 26.6 - 33.2 pg 12/24/2024 10:51 AM CDT [facility] Mean Cell Hemoglobin Concentration 35.3(H) 31.1 - 35.2 g/dL 12/24/2024 10:51 AM CDT [facility] RDW-SD 48.8 37.5 - 49.7 fL 12/24/2024 10:51 AM CDT [facility] Red Cell Diameter Width 14.3 11.6 - 15.5 % 12/24/2024 10:51 AM CDT [facility] Platelet 145(L) 160 - 397 K/uL 12/24/2024 10:51 AM CDT [facility] Mean Platelet Volume 9.8 9.1 - 12.6 fL 12/24/2024 10:51 AM CDT [facility] INRBC 0.0 0.0 - 0.1 /100 WBC 12/24/2024 10:51 AM CDT [facility] Comment: The INRBC (instrument NRBC) value reflects the enumeration of nucleated red blood cells contained in a 200uL sample of whole blood analyzed by the instrument. This value may differ from the NRBC value reported in a manual differential, which is based on a 100 cell differential. Blood Peripheral blood specimen / Unknown Venipuncture / Unknown 12/24/2024 8:54 AM CDT 12/24/2024 8:59 AM CDT us Kimi CAPUTO LAB BLOOD ORDERABLES Final Res ult [facility] Unless otherwise noted, all lab tests performed by: Division of Pathology and Laboratory Medicine [address] [place] [id number] * (ABNORMAL) Comprehensive Metabolic Panel (12/24/2024 8:54 AM CDT) Only the most recent of4 resultswithin the time period is included. Bilirubin Total 1.2 0.0 - 1.2 mg/dL 12/24/2024 9:46 AM CDT [facility] Comment:Indocyanine Green (I CG) may cause falsely elevated bilirubin results. Total and direct bilirubin must not be measured from samples containing indocyanine green. False elevation of total bilirubin can be seen in patients with IgG concentrations above 28 g/L. eGFR 121 >=60 mL/min/1. 73 sq. m 12/24/2024 9:46 AM CDT [facility] Comment: The eGFRcr is calculated with the 2020 CKD-EPI creatinine equation using creatinine, patient's age, and sex for adults 18 years of age and older. Other factors, especially muscle mass, may affect accuracy and need to be considered. According to the Kidney Disease: Improving Global Outcomes (KDIGO) CKD Work Group 2012 Clinical Practice Guideline, chronic kidney disease (CKD) is defined as the abnormalities of kidney structure or function, present for more than 3 months, with implications for health. CKD should be classified by cause, GFR category, and albuminuria category. KDIGO guidelines provide the following GFR categories. Stage / Description / GFR mL/min/1.73 m2: G1* / Normal or high / >= 90 G2* / Mildly decreased / 60-89 G3a / Mildly to moderately decreased / 45-59 G3b / Moderately to severely decreased / 30-44 G4 / Severely decreased / 15-29 G5 / Kidney failure / <15 *In the absence of evidence of kidney damage, neither G1 nor G2 fulfill criteria for CKD. Tot Protein 6.8 6.4 - 8.3 gm/dL 12/24/2024 9:46 AM T [facility] Calcium Level Total 9.3 8.2 - 10.2 mg/dL 12/24/2024 9:46 AM [facility] Alkaline Phosphatase 210(H) 40 - 129 U/L 12/24/2024 9:46 AM [facility] Albumin Level 3.5 3.5 - 5.2 gm/dL 12/24/2024 9:46 AM [facility] AST 51(H) <=40 U/L 12/24/2024 9:46 AM [facility] ALT 48(H) <=41 U/L 12/24/2024 9:46 AM T [facility] Sodium Level 135(L) 136 - 145 mmol/L 12/24/2024 9:46 AM [facility] Potassium Level 4.0 3.4 - 4.5 mmol/L 12/24/2024 9:46 AM [facility] Chloride 99 98 - 107 mmol/L 12/24/2024 9:46 AM [facility] CO2 26 22 - 29 mmol/L 12/24/2024 9:46 AM [facility] Anion Gap 10 4 - 14 mmol/L 12/24/2024 9:46 AM CDT [facility] Creatinine 0.49(L) 0.67 - 1.17 mg/dL 12/24/2024 9:46 AM CDT [facility] BUN 11 6 - 23 mg/dL 12/24/2024 9:46 AM CDT [facility] Glucose Level 89 70 - 99 mg/dL 12/24/2024 9:46 AM CDT [facility] Comment: Effective 03/13/16, the glucose reference intervals have been updated based on [place] [employer] guidelines (Standards of Medical Care in Diabetes 2016. Diabetes Care 2016; 39: S13-S22). Fasting blood glucose: Normal: 70-99 mg/dL Impaired fasting glucose (increased risk for diabetes or pre-diabetes): 100-125 mg/dL Diabetes mellitus: >/=126 mg/dL Random blood glucose: Normal: 70-199 mg/dL Note: Random glucose >100 mg/dL is associated with increased risk for diabetes. Blood Peripheral blood specimen / Unknown Venipuncture / Unknown 12/24/2024 8:54 AM CDT 12/24/2024 8:59 AM CDT us Kimi CAPUTO LAB BLOOD ORDERABLES Final Res ult [facility] Unless otherwise noted, all lab tests performed by: Division of Pathology and Laboratory Medicine [address] [place] [id number] * (ABNORMAL) CA 19-9 (12/24/2024 8:54 AM CDT) Only the most recent of4 resultswithin the time period is included. CA 19-9 52,200.0(H) <=35.0 U/mL 12/24/2024 12:43 PM CDT [facility] Blood Peripheral blood specimen / Unknown Venipuncture / Unknown 12/24/2024 8:54 AM CDT 12/24/2024 8:59 AM CDT Narrative [facility] - 12/24/2024 12:43 PM CDT Results greater than 9500 U/mL may not be reliable due to matrix effect with extended dilution as it exceeds the director of capital giving's recommended limit. Caution should be exercised when interpreting such values and done in conjunction with clinical context. This test is measured by electrochemiluminescence immunoassay on [employer]vel[employer] immunoassay analyzers. Results obtained in different methods are not interchangeable. us Kimi CAPUTO LAB BLOOD ORDERABLES Final Res ult [facility] Unless otherwise noted, all lab tests performed by: Division of Pathology and Laboratory Medicine [address] [place] [id number] * (ABNORMAL) Differential (12/24/2024 8:54 AM CDT) Only the most recent of3 resultswithin the time period is included. Total Cells 100 12/24/2024 10:51 AM CDT [facility] Manual Neutrophil % 51.0 43.2 - 72.7 % 12/24/2024 10:51 AM CDT [facility] Comment:The Neutrophil count includes Bands. Manual Lymphocyte % 31.0 16.8 - 46.2 % 12/24/2024 10:51 AM CDT [facility] Manual Monocyte % 13.0(H) 5.1 - 12.5 % 12/24/2024 10:51 AM CDT [facility] Manual Eosinophil % 4.0 0.4 - 6.3 % 12/24/2024 10:51 AM CDT [facility] Manual Basophil % 1.0 0.2 - 1.4 % 12/24/2024 10:51 AM CDT [facility] Metamyelocyte % 10:51 AM CDT [facility] Comment:The Metamyelocyte co unt includes Myelocytes. Manual Neutrophil Abs 1.28(L) 1.95 - 7.25 K/uL 12/24/2024 10:51 AM CDT [facility] Manual Lymphocyte Abs 0.78(L) 1.01 - 3.24 K/uL 12/24/2024 10:51 AM CDT [facility] Manual Monocyte Abs 0.33 0.24 - 0.85 K/uL 12/24/2024 10:51 AM CDT [facility] Manual Eosinophil Abs 0.10 0.02 - 0.50 K/uL 12/24/2024 10:51 AM CDT [facility] Manual Basophil Abs 0.03 0.02 - 0.09 K/uL 12/24/2024 10:51 AM CDT [facility] RBC Morphology PRESENT 12/24/2024 10:51 AM CDT [facility] PLT Morph Normal Normal 12/24/2024 10:51 AM CDT [facility] Anisocytosis Present(A) (none) 12/24/2024 10:51 AM CDT [facility] Ovalocyte Present(A) (none) 12/24/2024 10:51 AM CDT [facility] Josefina Cells Present(A) (none) 12/24/2024 10:51 AM CDT [facility] Slide Comment SEE NOTE 12/24/2024 10:51 AM CDT [facility] Comment:Platelet morphology normal. Blood Peripheral blood specimen / Unknown Venipuncture / Unknown 12/24/2024 8:54 AM CDT 12/24/2024 8:59 AM CDT us Kimi [facility]O LAB BLOOD ORDERABLES Final Res ult [facility] Unless otherwise noted, all lab tests performed by: Division of Pathology and Laboratory Medicine [address] [place] [id number] * (ABNORMAL) Direct and Indirect Bilirubin (12/10/2024 9:24 AM CDT) Only the most recent of3 resultswithin the time period is included. Bilirubin Direct 1.0(H) 0.0 - 0.2 mg/dL 12/10/2024 10:31 AM T [facility] Comment:Indocyanine Green (I CG) may cause falsely elevated bilirubin results. Total and direct bilirubin must not be measured from samples containing indocyanine green. Bilirubin Indirect 0.4 0.0 - 1.0 mg/dL 12/10/2024 10:31 AM T [facility] Blood Peripheral blood specimen / Unknown Venipuncture / Unknown 12/10/2024 9:24 AM CDT 12/10/2024 9:24 AM CDT us Kimi [facility] LAB BLOOD ORDERABLES Final Res ult [facility] [address] [facility], [facility] [address] [place] [address] * IR FL PORT PLACEMENT (12/03/2024 2:17 PM CDT) Anatomical Region Laterality Modality X-Ray Angiograph y 12/03/2024 3:13 PM CDT Narrative 12/03/2024 3:19 PM CDT Date of Procedure: 12/03/24 Attending Physician: Mark Zheng MD Environmental Protection Inspector: Don Pereyra Pre-procedure Diagnosis: Adenocarcinoma of pancreas Post-procedure Diagnosis: Unchanged Indication: Chemotherapy administration Title of Procedure: Right IJ power-injectable chest port placement. Port: Bard PowerPort Clearvue SLIM Implantable Port Catheter size: 8F Operative Findings: Successful percutaneous image-guided power-injectable chest port placement in the right internal jugular vein. Consent: The procedure, risks, indications and alternatives were explained. All questions were answered and informed consent was obtained. I have reviewed the history and physical dictated by the JAIME / fellow. Sedation/Anesthesia: Anesthesia provided by Anesthesia Department. Insertion site prepped with: Chlorhexadine gluconate Procedure in Detail: A time out was performed prior to the start of the procedure and the correct patient, procedure, presence of consent, site, and side were confirmed with all members of the team. Insertion site was prepped and cleaned with aseptic technique. Sterile devices and equipment were used. Doors were closed and traffic kept to a minimum during the procedure. Skin prep agent was allowed to dry prior to procedure. Maximum sterile barriers were used including sterile gloves, gown, cap, mask and head to toe sterile cover. Hand hygiene was performed prior to insertion by all persons performing/assisting with procedure. Ultrasound evaluation of the access site demonstrated a patent and compressible vein. Lidocaine 1% was used for local anesthesia. Under ultrasound imaging guidance, a 21 gauge needle was advanced into the right internal jugular vein and the access site was scaled up to accept a micropuncture transitional dilator. An image was obtained and placed into the medical record. A wire was advanced into the inferior vena cava under fluoroscopic guidance to secure access. An appropriate site within the upper chest was determined and an incision was created. A subcutaneous pocket below the incision site was created. The subcutaneous tunnel was then created in the upper chest and the port catheter was advanced through the tunnel. The venous access site was scaled up to accept a peel-away sheath. The catheter was then advanced through the sheath, with the tip of the catheter in a satisfactory position at the SVC/atrial junction on fluoroscopy. The catheter was connected to the hub of the chest port. The chest port hub was placed within the subcutaneous pocket. Venous access incision closed with Dermabond. The port pocket incision was closed as below. Port pocket closure: The incision was approximated with multiple subdermal sutures. Dermabond was applied to the incision sites. Additional Comments: None Estimated Blood Loss: Minimal Specimens Removed: No Disposition: PACU Plan: Port Catheter positioning was confirmed with a fluoroscopic image at the conclusion of the procedure. Tip of the catheter lies at the SVC/RA junction. The port is now ready for immediate use. Patient will be contacted in 1-2 weeks for a post port placement incision check. This draft note was prepared by the JAIME involved in the case; it was then reviewed and finalized by the attending physician. I certify my physical presence in the procedure/control room at the time of the procedure. I personally reviewed the image(s) and the JAIME's interpretation and agree with the written report. Kimi CAPUTO [facility] IR ORDERABLES Final Result * (ABNORMAL) Prothrombin Time with INR (12/03/2024 9:23 AM CDT) Only the most recent of2 resultswithin the time period is included. Prothrombin Time 14.7(H) 12.2 - 14.4 second(s) 12/03/2024 10:01 AM CDT [facility] International Normalization Ratio 1.13(H) 0.91 - 1.10 12/03/2024 10:01 AM T [facility] Blood Peripheral blood specimen / Unknown Venipuncture / Unknown 12/03/2024 9:23 AM CDT 12/03/2024 9:24 AM CDT Narrative [facility] - 12/03/2024 10:01 AM CDT Previous high history. Adam CAPUTO LAB BLOOD ORDERABLES Final Resu lt [facility] [address] [address], Room [address][id number] [place] [address] * Type and Screen (12/03/2024 9:23 AM CDT) Only the most recent of2 resultswithin the time period is included. ABORh A POS 12/03/2024 9:16 AM CDT [facility] ABSC Negative 12/03/2024 9:16 AM CDT [facility] Clot Expiration 12/06/2024 23:59 12/03/2024 9:16 AM CDT [facility] Historical Record Check Complete 12/03/2024 9:16 AM CDT [facility] Blood Peripheral blood specimen / Unknown Venipuncture / Unknown 12/03/2024 9:23 AM CDT 12/03/2024 9:24 AM CDT Adam [facility] BLOOD BANK TEST ORDERABLES Alicja l Result Performing Organization Address City/[facility]/ZIP Co de Phone Number [facility] [address] [place] [address] * MD [facility] - Tissue (Mutation Analysis Precision Panel-Tissue) (11/26/2024 10:55 AM CDT) Source Material [id number] 8:47 AM CDT [facility] Tumor Block A1 12/08/2024 8:47 AM CDT [facility] *Normal Control Material PB 12/08/2024 8:47 AM CDT [facility] Interpretation Carlos Enrique JOVANI [id number] [facility] - Tissue (Mutation Analysis Precision Panel) Report A. SPECIMEN INFORMATION Estimated tumor %: 60 Source material: [id number] Collected: 11/26/2024 Tumor block: A1 Received: 11/29/2024 Cancer type: Pancreatic Adenocarcinoma Ordering provider: PATITO Jenkins ACTIONABLE FINDINGS (for details, see D. Clinical Interpretation) Signature Result Actionability Level of Evidence Tumor mutational burden (TMB) 1 mut/Mb n/a n/a Microsatellite instability (MSI) TRIXIE n/a n/a Tier 1 Somatic variants of strong clinical significance (e.g. FDA label or Guideline-recommend ed in this tumor type): None identified Tier 2 Somatic variants of potential clinical significance (e.g. FDA label or Guideline-recommend ed in another tumor type): Gene Alteration Type Location VAF Actionability Evidence KRAS p.G12V c.35G>T Missense Exon 2 26% Pertinent Negatives (i.e. ordered genes where Tier 1/2 annotated mutations were not detected): ALPA, PALB2, RAD50 C. ADDITIONAL FINDINGS Additional somatic variants (e.g. potentially actionable variants, or variants of unknown [Tier 3] or benign [Tier 4] clinical significance): Gene Alteration Type Location VAF TP53 p.R196* c.586C>T Nonsense Exon 6 31% D. CLINICAL INTERPRETATION Comment: The selection and classification of variants for reporting incorporates review of available clinicopathologic information, correlation with current clinical presentation, any consultations with additional healthcare providers and exercise of medical judgement by the signout pathologist. 1. Findings with FDA Indications or Professional Guideline Recommendations in Patient's Tumor Type None Identified 2. Findings with FDA Indications or Professional Guideline Recommendations in Other Tumor Types None Identified 3. Biomarker Summary and Functional Annotations for Select Variants KRAS p.G12V Functional significance: Activating Biomarker summary: KRAS (Jesusita CAROL), along with HRAS and NRAS, belong to a group of small GTP-binding proteins known as the CAROL superfamily. KRAS encodes two gene products (KRAS4A and KRAS4B) generated by alternative splicing, but the clinical focus has been on the KRAS4B variant (62;49). When activated, KRAS stimulates downstream oncogenic pathways, such as CORY/MEK/ERK, PI3K/AKT/mTOR, and RAL/Rac1 that promote cellular proliferation, migration, and tumor invasion (72;51). Functional annotation: This alteration has been reported to be activating. G12V is the second most common KRAS mutation in colon cancer and is associated with decreased overall survival (1;10;5). This variant has less intrinsic GTPase activity than wild-type KRAS, implicating an increase of KRAS in its activated GTP-bound state, and results in persistent signaling as well as a proliferative and transforming state (8;3;28;27;29;30). Colon cancer cell lines expressing this mutation have elevated CAROL-GTP (activated CAROL), increase CAROL signaling, and possess high oncogenic potential (6;4;9). A genomic alteration resulting in this amino acid change is recorded within dbSNP ([id number]) (Nov, 2024). The Germline Classification of this alteration in ClinVar is Pathogenic ([id number]) (Nov, 2024). TP53 p.R196* Functional significance: Inactivating and Neomorphic Biomarker summary: TP53 gene encodes p53 tumor suppressor protein that regulates cell division, cell cycle, DNA repair, apoptosis, and cellular metabolism (163). Functional annotation: This alteration has been reported to be inactivating and neomorphic. R196* introduces a truncation within the DNA binding domain of 53 (UniProt). This event would disrupt the DNA-binding domain and completely eliminate the tetramerization domains (UniProt) that are both essential for p53's tumor suppressive functions (75). In fact, this alteration caused loss of p53 tumor suppressor activities and down-regulation of EMT markers and up-regulation of E-cadherin, while promoting cancer cell proliferation, survival, and pro-metastasis (74). A genomic alteration resulting in this amino acid change is recorded within dbSNP ([id number]) (Oct, 2023). The clinical significance of this alteration in ClinVar is Pathogenic ([id number]) (Oct, 2023). - Interpretation of clinical actionability was based on the biomarker and cancer type, and used the precision oncology decision support system at [facility] [place] (PMID: 09659969). These interpretations do not take into account treatment history of staging, are applicable as of this report's date, and may change in the future. The clinical significance categories (tiers) for somatic variants were reported using the 2017 AMP/ASCO/CAP guidelines (PMID: 8572895). - For variants therapeutic annotations beyond Tier 1 or Tier 2, providers may explore clinical trial matching options and request additional annotation at [email or web address]. Clinical test requisition for mutation studies on the following genes was received: ALPA, KRAS, PALB2, RAD50 E. METHODOLOGY Test Description: The [facility] Mutation Analysis Precision Panel ([facility]) assay is a custom high-throughput next generation sequencing-based CLIA assay that uses targeted hybridization-based capture technology for detection of sequence variants/mutations in 610 genes (single nucleotide variants [SNVs] and insertion/deletion alterations [indels]), copy number variants (CNVs) in 583 genes, select gene rearrangements in 34 genes (Fusions), and selected genomic immuno-oncology signatures including microsatellite instability (MSI) and tumor mutational burden (TMB) in DNA isolated from formalin-fixed paraffin embedded (FFPE) tumor tissue and cytology specimens (See Appendix Table 1 and 2). [facility] employs DNA extracted from both tumor tissue and paired normal (blood or tissue) specimens in our CLIA-certified molecular diagnostic laboratory. Routine paraffin-embedded tissue from surgical resection specimens, core needle biopsies and fine needle aspirate (cell blocks and cytology smears) are accepted specimen types. A minimum of 50 ng of genomic DNA undergoes whole-genome library construction with adapters carrying Unique Molecular Indices (EVANS) allowing tagging of original double-stranded DNA that facilitates statistical reconstruction of reads sequenced as duplicates from a single-amplified genome. A target area of 2.1 megabases (Mb) hg19 genome is enriched with custom hybrid-capture, 120nt dsDNA probes. [facility] assay uses the [employer] 6000 next generation sequencing platform and bidirectional paired-end sequencing to identify nucleic acid variants for all coding regions from most genes in the panel, the TERT promoter, 1 non-coding RNA gene, and clinically relevant rearrangements. Reported somatic mutations are identified by comparison to the human genome reference sequence GRCh37/hg19 and reviewed in [employer] against a process-matched normal control. Data analysis is performed in house by the [employer] Bioinformatics pipeline (BIP) which relies on the dual-duplex molecular barcoding for consensus analysis to reduce sequencing artifacts and achieve greater sensitivity and positive predictive value. [facility] is intended to provide tumor mutation profiling in accordance with institutional guidelines in oncology for patients with solid malignant neoplasms. Report annotation and software: A post-variant calling analysis and annotation tool, [employer] 2.1.0.9, was used in the construction of this report. The following additional software tools were utilized in the experimental setup and bioinformatic analysis: [employer] Control Software 1.7, [employer] Real Time Analysis Software 3.4.4, [employer].2 and [employer] BIP v1.0. Detailed information about the signal-processing, basecalling, alignment, and variant calling algorithms are available upon request. Variants identified are described using an implementation of a standardized nomenclature developed by the Human Genome Variation Society (HGVS, http://www.hgvs.org /varnomen/). A decision-support/[employer] application programming interface (bunkersofa 7.1.2) was used in the annotation of genomic observations in this report. Test performance specifications: The tumor cellularity in the sample submitted is assessed by a combination of direct morphologic assessment and/or immunophenotypic evaluation as part of the pathology workup. For this assay, sensitivity of detection is related in part to depth of coverage, tumor cellularity, and allelic frequency for the mutation. Although the NGS platform is capable of achieving a much higher analytical sensitivity, for clinical purposes, at around 50 ng input DNA and a minimum of 20% tumor cellularity, we determined the effective lower limit of detection (LoD) for SNVs and INDELs of 5% mutation allelic frequency (one mutant allele in the background of nineteen wild type alleles), 5 fusion breakpoint molecules for Fusion detection, and a threshold of 4 copy number for gene amplifications with an overall panel analytical sensitivity for SNVs 99.2%, INDELs 92.3%, CNVs 97.3%, Fusions 89.1% and MSI 100% while maintaining analytical specificity near 100%. Notable limitations of the test: · [facility] requires a normal non-tumor sample for appropriate interpretation of somatic mutations. · Silent mutations (mutations that do not result in an amino acid change) are not reported. · A minimum of 20% tumor cellularity is required in the sample for mutation analysis. Clinical tumor specimens below 20% tumor cellularity are not optimal for MSI and TMB interpretation and thus Not Reportable . · The primary purpose of this panel is to detect somatic mutations in genes involved in oncogenesis of this patient s tumor. The test or the results thereof should not be used to detect germline variants for hereditary cancer syndromes. If a hereditary cancer syndrome is suspected, separate testing of a germline sample should be performed using an appropriate assay. · Variants detected below Limits of Detection (LoD) not deemed to be confirmable by independent, orthogonal methods and/or in significant discordance with the tumor cellularity in the tested sample may be excluded as the clinical significance and reliability of such low-level mutation calls is not clear. · Variant allelic frequency (VAF) is included for reported sequence variants and reflects the percentage of mutant reads compared to all reads present at the variant position. This number reflects a complex mixture of factors including tumor cellularity, potential CNVs and loss of heterozygosity, and potential subclonality. In addition, strand or allelic bias can significantly impact the measurement of specific variants in any sequencing platform. The clinical utility or meaning of this number in general is not considered established. Linearity of measurement should not be assumed. · Copy number assessment by next generation sequencing can be affected by tumor cellularity, amplitude of gene amplification, enrichment of tumor during pre-analytical phase, library preparation methods and analysis algorithms. With 40% tumor content or higher, this test has a specificity of 0.96 and a sensitivity of at least 0.9 for detection of homozygous loss of CDKN2A/CDKN2B and MTAP. False negative results can be obtained in cases with low tumor percentage, low amplicon coverage and/or borderline copy number alterations. The reporting of copy number losses is restricted to CDKN2A/CDKN2B and MTAP. Other genes are not evaluated for copy number loss. This assay cannot reliably identify heterozygous gene losses. Correlation with traditional methods of copy number assessment such as fluorescent in situ hybridization (FISH) is recommended as applicable. · False negative fusion results can occur in cases with low fusion DNA molecules, low tumor cellularity, fusions occurring in highly repetitive intronic sequence contexts or fusions where the genomic breakpoint does not span within targeted introns covered by the panel (See Appendix Table 2). The assay requires a minimum of 20% tumor sample cellularity to reduce the potential for false negative results. Correlation with traditional methods of fusion detection such as fluorescent in situ hybridization (FISH) is recommended as applicable. · Tumor mutational burden (TMB) is determined by measuring the number of somatic mutations occurring in sequenced genes and specified as a rate (mutations per megabase [mut/Mb]). TMB is calculated for all samples and includes the sum of all somatic synonymous and non-synonymous variants present in the sample at a VAF near LoD and above the noise-level of the assay (after filtering). The number of mutations per megabase may be reported as a nominal number rounded to the closest integer. TMB in cases with low sequence quality cannot be established and may be reported as Not Reportable . · The microsatellite instability high (MSI-H) and microsatellite stable (TRIXIE) reported by [facility] is based on the analysis of 40+ informative microsatellite loci. The total number of sites evaluated is dependent on coverage metrics over candidate MSI regions in the paired tumor and normal samples. Microsatellite instability is reported as Undetermined if the sample does not meet the required thresholds to make a MSI-H or TRIXIE call. The thresholds for designating these calls were established by analytical concordance to comparator assays (PCR, IHC and NGS) using a wide selection of tumor tissue types including colorectal and endometrial cancers. Confirmatory testing of microsatellite instability (MSI-PCR, MLH1 promoter methylation) and DNA mismatch repair gene assessment (MMR deficiency) is recommended as applicable for complete evaluation. · Correlation with clinicopathologic features and prevalent clinical practice guidelines is recommended for complete evaluation and integration of genomic findings in patient care decisions. Sequencing coverage of the genes: The following table describes the extent and adequacy of coverage for ordered genes only. Covered genes/exons/codons are defined as those having total coverage depth of greater than or equal to 100 [id number] , collapsed reads (minimum 100x coverage). Mutations in ordered genes outside the optimally covered regions listed below may be detected with diminished sensitivity and cannot be ruled out. Coverage information for non-ordered genes for this sample is complex and lengthy, but may be requested from the laboratory if required for clinical care or correlative purposes. Gene Exons (codons) tested ABL1 ([id number]) 1-11 (1-1131) ABL2 ([id number]) 1-12 (1-1168) ABRAXAS1 ([id number]) 1-9 (1-410) ACVR1 ([id number]) 3-6 (1-215), 7 (220-255), 8-11 (264-510) ACVR1B ([id number]) 1-9 (1-506) ACVR2A ([id number]) 1-2 (1-88), 3 (95-121), 4 (125-168), 5 (177-221), 6 (231-262), 7 (280-315), 8-9 (321-403), 10 (419-430), 11 (465-514) ADGRA2 ([id number]) 1-19 (1-1339) AJUBA ([id number]) 1-8 (1-539) AKT1 ([id number]) 2-14 (1-481) AKT2 ([id number]) 2-14 (1-482) AKT3 ([id number]) 2 (1-16), 3 (21-53), 4-5 (58-143), 6 (155-182), 7-8 (188-232), 9 (234-256), 10-14 (274-480) AKTIP (NM_022476) 2-10 (1-293) ALK (NM_004304) 1-29 (11621) KXJZ26D (NM_001139) 1-15 (1-702) AMER1 (NM_152424) 2 (11136) ANKRD11 (NM_013275) 3-13 (1-2664) APC (NM_000038) 3-7 (46-243), 8 (248-267), 9-16 (279-1797), 16 (5200-6730), 16 (1691-8729), 16 (4263-6321), 16 (8504-4989), 16 (1153-8566), 16 (0269-3383), 16 (8604-3754), 16 (4921-4424), 16 (0078-6256), 16 (2810), 16 (2821), 16 (3269-2255) AR (NM_000044) 1 (1-456), 1-8 (461-921) ARAF (NM_001654) 2-16 (1-607) ARFRP1 (NM_001267547) 2-8 (1-202) ARID1A (NM_006015) 1-20 (1-2286) ARID1B (NM_001346813) 1-20 (1-2290) ARID2 (NM_152641) 1-11 (1-500), 12 (504-523), 13-20 (530-1782), 21 (7610-4473) ARID5B (NM_032199) 1-2 (1-92), 3 (102-161), 3 (163-164), 4-5 (168-282), 7-10 (350-1189) ASCC3 (NM_006828) 2-4 (1-267), 5 (277-289), 6 (310-376), 7 (379-419), 8-10 (426-579), 11 (592-631), 12 (635-693), 13 (700-717), 14 (719-756), 15 (774-820), 16 (837-890), 17-19 (905-1025), 20 (7509-4129), 21-23 (5007-6195), 24 (6347-8845), 25-27 (1647-4340), 28 (0088-5756), 29 (1522), 30 (4265-2788), 31 (4981-3851), 32 (9309-5119), 33 (6041-0770), 34 (3040-0109), 35 (3205-1859), 36 (9727-1708), 37 (1560-0483), 38 (6516-9883), 39 (7421-5887), 40-42 (8040-5202) ASPM (NM_018136) 1 (1-99), 2 (106-142), 3 (562-631), 3 (489-522), 3 (429-437), 3 (151-317), 3 (423), 4-12 (641-1056), 13 (3285-7437), 13 (6612-2200), 13 (3805-1126), 14 (6315-8171), 15 (1210), 15 (5455-9709), 16 (7952-4961), 17 (9044-1212), 18 (2864), 18 (7553-0673), 18 (6979-5120), 18 (2743), 18 (0774-5406), 18 (6975-4157), 18 (2376-1067), 18 (2605), 18 (2583), 18 (6692-1213), 18 (7018-9287), 18 (2571), 18 (0592-5643), 18 (2409-4259), 18 (8997-8355), 18 (2471), 18 (5149-0235), 18 (0168-0529), 18 (6380-8449), 18 (8549-3300), 18 (2254), 18 (4808-2412), 18 (1083-0879), 18 (2037), 18 (1258-7096), 18 (0750-0158), 18 (4259-9115), 18 (1486-9215), 18 (6225-9221), 18 (1694), 18 (8056-4727), 18 (4513-1898), 18 (2927-8295), 18 (4462-2358), 18 (2606-7943), 18 (8818-1991), 19 (5747-1147), 20 (3774-2739), 21 (4955-8967), 22 (1182-0985), 23 (0353-7047), 24-25 (2478-4741), 26-27 (7975-5328), 28 (1856-5803) ASXL1 (NM_015338) 1-13 (1-1542) ASXL2 (NM_018263) 1-13 (1-1436) ALPA (NM_000051) 2-11 (1-601), 12-35 (607-1773), 36-45 (0439-6609), 46-63 (2904-4295) ATR (NM_001184) 1-3 (1-98), 4-17 (101-1150), 18 (0352-5290), 19 (5723-6043), 20-21 (0556-4413), 22-42 (0224-8619), 43 (0586-8849), 44 (1015-8462), 45-47 (7117-7134) ATRX (NM_000489) 1-3 (1-63), 4 (66-81), 6-7 (124-198), 8 (203-218), 9 (2935-9109), 9 (9581-9574), 9 (0450-7151), 10-12 (2266-5454), 13 (0146-0606), 14 (5800-0457), 15-20 (1417-8718), 21-23 (2676-1308), 25 (9372-4482), 26-27 (0290-9276), 29-30 (1415-6384), 31 (8853-2915), 35 (7964-5170) AURKA (NM_003600) 2-9 (1-404) AURKB (NM_004217) 2-9 (1345) AURKC (NM_003160) 2-7 (1-276) AXIN1 (NM_003502) 2-11 (863) AXIN2 (NM_004655) 2-11 (844) TRUNG (NM_001699) 1-19 (1886) B2M (NM_004048) 1-3 (1-120) BAP1 (NM_004656) 1-17 (1-730) BARD1 (NM_000465) 1-2 (1-72), 3 (84-121), 4 (328-427), 4 (310-315), 4 (301), 4 (297), 4 (288-289), 4 (259-265), 4 (251-257), 4 (247), 4 (242-245), 4 (137-228), 4 (237-238), 5-11 (439-958) BBC3 (NM_014417) 2-4 (1194) BCL10 (NM_003921) 1-3 (1-234) BCL11A (NM_022893) 1-4 (1836) BCL2 (NM_000633) 2-3 (1240) BCL2L1 (NM_138578) 2-3 (1-234) EDU1C05 (NM_138621) 2-4 (1-199) BCL2L2 (NM_004050) 3-4 (1-194) BCL6 (NM_001706) 3-10 (1-707) BCOR (NM_017745) 2-15 (1-1722) BCORL1 (NM_021946) 1-12 (1-1712) BCR (NM_004327) 1-17 (1-1024), 18-23 (6069-5025) BIRC2 (NM_001166) 2-5 (1-375), 6 (384-456), 7 (463-534), 9 (569-603) BIRC3 (NM_001165) 2 (17-203), 2 (221), 2 (223), 2-4 (225-344), 6-9 (361-605) BLM (NM_000057) 2-22 (1-1418) BMPR1A (NM_004329) 3-13 (1-533) BRAF (NM_004333) 1-5 (1-233), 6-14 (238-578), 15 (588-620), 16 (623-661), 17-18 (665-767) BRCA1 (NM_007294) 2-23 (1-1864) BRCA2 (NM_000059) 2-11 (1-1251), 11 (2761-3103), 12-27 (1293-5761) BRD4 (NM_058243) 2-13 (1-861), 14 (5707-1611), 14 (861-953), 14 (990-1013), 15-20 (1551-2800) BRIP1 (NM_032043) 2-8 (1-380), 9 (397-435), 10 (449-491), 11 (499-536), 12-20 (543-1250) BTG1 (NM_001731) 1-2 (1-172) BTG2 (NM_006763) 1-2 (1-159) BTK (NM_000061) 2-19 (1-660) BUB1 (NM_004336) 1-14 (1-529), 15 (539-566), 16-24 (573-1021), 25 (1897-2296) CALR (NM_004343) 1-9 (1-418) CARD11 (NM_032415) 2-25 (1-1155) CASP8 (NM_001228) 3-10 (1-497) CBFB (NM_022845) 1-6 (1-188) CBL (NM_005188) 1-16 (1-907) CCN6 (NM_198239) 1-3 (1-197), 4 (207-254), 5 (262-355) CCNA2 (NM_001237) 1-7 (1-415), 8 (417-433) CCND1 (NM_053056) 1-5 (1-296) CCND2 (NM_001759) 1-5 (1-290) CCND3 (NM_001760) 1-5 (1-293) CCNE1 (NM_001238) 2-12 (1-411) CD274 (NM_014143) 2-3 (1-132), 4-7 (136-291) CD276 (NM_001024736) 2-10 (1-535) CD74 (NM_001025159) 1-9 (1-297) CD79A (NM_001783) 1-5 (1-227) CD79B (NM_000626) 1-6 (1-230) CD8A (NM_001768) 1-6 (1-236) CDC20 (NM_001255) 2-11 (1-500) CDC27 (NM_001256) 1-19 (1-825) CDC6 (NM_001254) 2-12 (1-561) CDC73 (NM_024529) 1-7 (1-238), 8-13 (244-383), 14-15 (385-473), 16 (485-511), 17 (520-532) CDH1 (NM_004360) 1-16 (1-883) CDK12 (NM_016507) 1-14 (1-1491) CDK2 (NM_001798) 1-7 (1-299) CDK4 (NM_000075) 2-8 (1-304) CDK6 (NM_001259) 2 (1-78), 3-5 (81-216), 7-8 (233-327) CDK8 (NM_001260) 1-12 (1-422), 13 (424-465) CDKN1A (NM_000389) 2-3 (1-165) CDKN1B (NM_004064) 1-2 (1-199) CDKN2A (NM_000077) 1-3 (1-157) CDKN2B (NM_004936) 1-2 (1-139) CDKN2C (NM_001262) 2-3 (1-169) CEBPA (NM_004364) 1 (1-359) CENPA (NM_001809) 1-4 (1-141) CENPE (NM_001813) 1-4 (1-116), 5 (128-158), 6 (160-187), 8 (210-229), 9-15 (232-493), 16-20 (498-711), 21 (713-761), 22 (778-867), 23 (871-958), 24 (966-1006), 25 (8870-9814), 26-35 (5817-3002), 36 (2603-9772), 37 (6274-4963), 38-39 (1585-8057), 40-42 (3379-1813), 43-46 (7580-1403), 47 (6728-2046), 48-49 (3252-1534) CHAF1A (NM_005483) 1-15 (1-957) CHEK1 (NM_001274) 2-13 (1-477) CHEK2 (NM_007194) 2-15 (1-544) CIC (NM_015125) 1-20 (1-1609) COL2A1 (NM_033150) 1-53 (1-1419) COP1 (NM_022457) 1-5 (1-253), 6 (255-277), 8 (308-321), 9-10 (323-381), 11-20 (386-732) CREBBP (NM_004380) 1-31 (1-2443) CRKL (NM_005207) 1-3 (1-304) CRLF2 (NM_022148) 1-8 (1-263) CSF1R (NM_005211) 2-22 (1-973) CSF3R (NM_156039) 3-17 (1-864) CTCF (NM_006565) 3-12 (1-728) CTLA4 (NM_005214) 1-4 (1-224) CTNNA1 (NM_001903) 2-18 (1-907) CTNNB1 (NM_001904) 2 (1-5), 3-6 (11-312), 7 (318-357), 8-11 (361-600), 12 (615-639), 13 (919-685), 14-15 (643-782) CUL3 (NM_003590) 1-13 (1-614), 14 (391-672), 15-16 (700-769) CUL4A (NM_001008895) 1-20 (1-760) CUL4B (NM_001079872) 1-3 (1-259), 4 (271-279), 6 (335-350), 8 (401-416), 9-11 (421-546), 14-20 (618-896) CUX1 (NM_181552) 1-24 (1-1506) CXCR4 (NM_003467) 1-2 (1-353) CYLD (NM_015247) 4-15 (1-703), 16-20 (711-957) NIV2X48 (NM_000769) 1-4 (1-214), 5 (234-267), 6-7 (274-383), 9 (431-491) DAXX (NM_001350) 2-8 (1-741) SHQJQ6N (NM_001033855) 1-14 (1-693) YZYW1F3 (NM_020640) 1-7 (1-260) DDB1 (NM_001923) 1-27 (1-1141) DDR1 (NM_013993) 3-19 (1-914) DDR2 (NM_006182) 3-18 (1-856) DDX3X (NM_001356) 1-4 (1-95), 5 (99-134), 5 (140), 7 (197-221), 8-17 (227-663) DICER1 (NM_030621) 4-12 (1-564), 13-29 (587-1917) DIS3 (NM_014953) 1-4 (1-218), 5-13 (221-579), 14-19 (586-890), 20-21 (904-958) DLL3 (NM_203486) 1-9 (1-588) DNA2 (NM_001080449) 1-21 (11061) DNAJB1 (NM_006145) 1-3 (1-341) DNMT1 (NM_001130823) 1-4 (1-149), 6-41 (165-1633) DNMT3A (NM_022552) 2-23 (1913) DNMT3B (NM_006892) 2-23 (1854) DOT1L (NM_032482) 1-28 (11538) E2F3 (NM_001949) 1-7 (1-466) EED (NM_003797) 1-2 (1-88), 3-9 (90-322), 10 (324-374), 11 (376-398), 12 (400-442) EGFL7 (NM_016215) 4-11 (1-274) EGFR (NM_005228) 1-28 (11211) EIF1AX (NM_001412) 1-6 (1-143) EIF4A2 (NM_001967) 1-5 (1-170), 6 (173-208), 7 (215-241), 8 (285-287), 8 (289-291), 11 (364), 11 (366), 11 (368-408) EIF4E (NM_001968) 1-7 (1-218) ELF3 (NM_004433) 2-9 (1-372) ELOC (NM_005648) 2-4 (1-113) EMSY (NM_001300943) 2-4 (1-82), 5-13 (86-666), 14 (669-731), 15-20 (739-1259), 21 (6919-5710) ENO1 (NM_001428) 2-12 (1-435) EP300 (NM_001429) 1-31 (1-2415) EPCAM (NM_002354) 1-9 (1-315) EPHA2 (NM_004431) 1-17 (1-977) EPHA3 (NM_005233) 1 (1-30), 2 (38-47), 3 (62-150), 3 (161-163), 3 (166), 3 (176-201), 3 (203), 4-5 (272-436), 6 (448-469), 7 (477-532), 8 (538558), 9 (566584), 10 (600618), 11 (813-652), 11 (655-670), 12-17 (692-984) EPHA5 (NM_001281766) 1-6 (1-509), 7-8 (511-596), 9 (595-609), 10-11 (722-719), 12 (713-740), 13-15 (127-929), 16 (951-961), 16 (947), 16 (949), 17 (986-1013) EPHA7 (NM_004440) 1-2 (1-54), 3 (273), 3 (253-271), 3 (245-250), 3 (235-242), 3 (232), 3 (227-230), 3 (184-185), 3 (74-124), 4-6 (278-476), 7 (651-536), 8 (551-577), 9 (581-596), 10 (611634), 11 (645-695), 12 (713721), 13-16 (727-961), 17 (966-992) EPHB1 (NM_004441) 1-16 (1-985) ERBB2 (NM_004448) 1-27 (1-1256) ERBB3 (NM_001982) 1-28 (1-1343) ERBB4 (NM_005235) 1-3 (1-141), 4 (152-181), 5-7 (186-295), 8 (317-324), 8 (304-315), 9 (333-371), 10-14 (375-572), 15-16 (578-649), 17 (657-673), 18-20 (694-829), 21-22 (834-907), 23 (912-956), 24 (958-988), 25 (993-1042), 26-28 (7035-1818) ERCC1 (NM_202001) 1-8 (1-324) ERCC2 (NM_000400) 1-23 (1-761) ERCC3 (NM_000122) 1-15 (1-783) ERCC4 (NM_005236) 1-11 (1-917) ERCC5 (NM_000123) 1-15 (1-1187) ERCC6 (NM_000124) 2-6 (1-501), 7-21 (509-1494) ERG (NM_004449) 3-11 (1-463) ERRFI1 (NM_018948) 2-4 (1-463) ESR1 (NM_000125) 1-2 (1-198), 3-4 (215-366), 5 (373-400), 6-8 (412-596) ETV1 (NM_004956) 3-4 (1-45), 5-14 (47-478) ETV4 (NM_001986) 2-13 (1-485) ETV5 (NM_004454) 2-13 (1-511) ETV6 (NM_001987) 1-8 (1-453) EWSR1 (NM_013986) 1-18 (1-662) EXO1 (NM_130398) 4-11 (1-423), 12-16 (430-847) EZH2 (NM_004456) 2 (5-33), 3 (61-78), 4-20 (83-752) FADD (NM_003824) 1-2 (1-209) FANCA (NM_000135) 1-43 (1-1456) FANCC (NM_000136) 2-15 (1-559) FANCD2 (NM_033084) 2-43 (1-1472) FANCE (NM_021922) 1-10 (1-537) FANCF (NM_022725) 1 (1-375) FANCG (NM_004629) 1-14 (1-623) FANCI (NM_018193) 2-37 (1-1269) FANCL (NM_018062) 1-5 (1-125), 6 (128-150), 7-8 (158-231), 9 (247-253), 10-11 (271-297), 12 (305-336) FANCM (NM_020937) 1-23 (1-2048) FAS (NM_000043) 1-3 (1-110), 4-9 (112-335) FAT1 (NM_005245) 2-27 (1-4589) FBXW7 (NM_033632) 2 (1-166), 3 (168-195), 4 (205-237), 5-8 (243-411), 9 (413-469), 10 (478-540), 11-12 (909-258) FGF10 (NM_004465) 1 (1-109), 3 (144-209) FGF14 (NM_175929) 1 (1-70), 2 (74-102), 3 (107-140), 4-5 (157-253) FGF19 (NM_005117) 1-3 (1-217) FGF23 (NM_020638) 1-3 (1-252) FGF3 (NM_005247) 1-3 (1-240) FGF4 (NM_002007) 1-3 (1-207) FGF5 (NM_004464) 1-3 (1-269) FGF6 (NM_020996) 1-3 (1-209) FGF9 (NM_002010) 1-3 (1-209) FGFR1 (NM_015850) 2-18 (1-821) FGFR2 (NM_000141) 2-18 (1-822) FGFR3 (NM_000142) 2-18 (1-807) FGFR4 (NM_022963) 1-16 (1-763) FH (NM_000143) 1-3 (1-126), 4 (134-184), 5-7 (186-370), 8 (373-404), 9 (425), 9 (429-458), 10 (464-511) FLCN (NM_144997) 4-14 (1-580) FLT1 (NM_002019) 1-6 (1-271), 7 (275-325), 8-30 (336-1339) FLT3 (NM_004119) 1-24 (1-994) FLT4 (NM_002020) 1-30 (1-1299) FOXA1 (NM_004496) 1-2 (1-473) FOXL2 (NM_023067) 1 (1-377) FOXO1 (NM_002015) 1-2 (1-656) FOXP1 (NM_032682) 6-11 (1-290), 13 (325-351), 14-21 (363-678) FRS2 (NM_006654) 6-10 (1-509) FTO (NM_001080432) 1-9 (1-506) FUBP1 (NM_003902) 1-12 (1-343), 13 (353-382), 14 (400-440), 15-18 (449-589), 19-20 (594-645) FYN (NM_002037) 4-14 (1-538) GABRA6 (NM_000811) 1-3 (1-75), 4 (86-132), 5 (151-172), 6 (181-223), 6-9 (225-454) IHME86K (NM_001924) 1-4 (1-166) GATA1 (NM_002049) 2-6 (1-414) GATA2 (NM_032638) 2-6 (1-481) GATA3 (NM_001002295) 2-6 (1-445) GATA4 (NM_002052) 2-7 (1-443) GATA6 (NM_005257) 2-7 (1-596) GEN1 (NM_001130009) 2-7 (1-268), 8 (278-306), 9 (318-330), 11-14 (361-838), 14 (841-858), 14 (891-909) GID4 (NM_024052) 1-6 (1-301) GLI1 (NM_005269) 2-12 (1-1107) GNA11 (NM_002067) 1-7 (1-360) GNA13 (NM_006572) 1-4 (1-378) GNAQ (NM_002072) 1 (1-46), 2-4 (48-202), 5 (210-242), 6-7 (246-360) GNAS (NM_000516) 1-13 (1-395) GPS2 (NM_004489) 2-11 (1-328) GRIN2A (NM_001134407) 2-13 (1-1465) GRM3 (NM_000840) 2-4 (1-797), 5 (813-850) GSK3B (NM_001146156) 1-4 (1-159), 5 (161-200), 6 (212-218), 6 (223-225), 7 (239-270), 8 (275-292), 9-11 (304-421) H1-2 (NM_005319) 1 (1-214) H2AX (NM_002105) 1 (1-144) H2BC5 (NM_138720) 1 (1-126) H3-3A (NM_002107) 2-4 (1-137) H3-3B (NM_005324) 2-4 (1-137) H3-4 (NM_003493) 1 (1-137) H3-5 (NM_001013699) 1 (1-136) H3C1 (NM_003529) 1 (1-136) H3C10 (NM_003536) 1 (1-136) H3C11 (NM_003533) 1 (1-137) H3C12 (NM_003535) 1 (1-137) H3C13 (NM_001123375) 1 (1-137) H3C2 (NM_003537) 1 (1-137) H3C3 (NM_003531) 1 (1-136) H3C4 (NM_003530) 2 (1-137) H3C6 (NM_003532) 1 (1-137) H3C7 (NM_021018) 1 (1-137) H3C8 (NM_003534) 1 (1-137) HDAC2 (NM_001527) 1 (1-18), 2 (25-49), 3-5 (56-166), 6-12 (175-460), 13-14 (464-489) HDAC9 (NM_178425) 1-5 (1-222), 6-13 (225-679), 14-20 (682-893), 21-25 (895-1070) HELQ (NM_133636) 1-18 (1-1102) HERC2 (NM_004667) 2-27 (1-1403), 28-45 (4261-6354), 46-93 (8165-4901) HFM1 (NM_001017975) 2-3 (1-62), 4 (93-154), 5-8 (165-336), 9 (342-378), 10 (399-408), 11 (427-457), 12 (512), 12 (487-502), 12 (504-510), 15 (592), 16 (623-625), 16 (629-640), 17 (660-688), 18-21 (694-809), 22 (817-841), 23 (859), 23 (857), 23 (845-853), 23 (855), 24-31 (861-1156), 32-34 (8890-4084), 36 (8266-9002), 37-38 (1391-9757) HGF (NM_000601) 1-3 (1-123), 4 (131-157), 5 (180-195), 6 (220-243), 7-10 (249-424), 11 (442-449), 12-13 (469-514), 14 (525-530), 15 (553-576), 17 (638-661), 18 (679-706) HLA-A (NM_002116) 1-8 (1-366) HNF1A (NM_000545) 1-10 (1-632) HOXB13 (NM_006361) 1-2 (1-285) HRAS (NM_005343) 2-5 (1-190) HSD3B1 (NM_000862) 2-4 (1-374) RGW28JY5 (NM_001017963) 1-12 (1-855) RPX58AH3 (NM_007355) 2-12 (1-725) ICOSLG (NM_015259) 1-7 (1-303) ID3 (NM_002167) 1-2 (1-120) IDH1 (NM_005896) 3-10 (1-415) IDH2 (NM_002168) 1-11 (1-453) IFNGR1 (NM_000416) 1-2 (1-67), 3-4 (83-181), 5-7 (183-490) IGF1 (NM_000618) 1-4 (1-154) IGF1R (NM_000875) 1-21 (1-1368) IGF2 (NM_000612) 2-4 (1-181) IKBKE (NM_014002) 3-22 (1-717) IKZF1 (NM_006060) 2-8 (1-520) IL10 (NM_000572) 1-5 (1-179) IL7R (NM_002185) 1 (1-28), 2 (46), 2 (48-55), 3 (74-125), 4-8 (127-460) INHA (NM_002191) 1-2 (1-367) INHBA (NM_002192) 2-3 (1-427) INO80 (NM_017553) 2-36 (1-1557) INPP4A (NM_001134225) 3-25 (1-973) INPP4B (NM_001101669) 4 (2-31), 6-7 (46-121), 8-11 (125-230), 12 (235-270), 13-15 (279-384), 16 (396-443), 17 (471-509), 18 (524-569), 19-20 (574-673), 21 (675-709), 22-26 (712-925) INSR (NM_000208) 1-22 (1-1383) IRF2 (NM_002199) 2-9 (1-350) IRF4 (NM_002460) 2-9 (1-452) IRS1 (NM_005544) 1 (1-1243) IRS2 (NM_003749) 1-2 (11339) JAK1 (NM_002227) 2-24 (1-1123), 25 (9919-8537), 25 (1150) JAK2 (NM_004972) 3 (1-76), 4 (87-114), 5-6 (117-205), 7 (217-303), 8 (332-339), 9-12 (353-547), 13 (566-578), 16 (672-705), 17-22 (711-1020), 23 (0246-4782), 24 (1887-6421) JAK3 (NM_000215) 2-24 (11125) SEBASTIAN (NM_002228) 1 (1-332) KAT6A (NM_006766) 2-17 (1-2005) KDM5A (NM_001042603) 1-15 (1-717), 16 (723), 16-28 (725-1671) KDM5C (NM_004187) 1-26 (1-1561) KDM6A (NM_021140) 1-2 (1-75), 4-5 (112-148), 7-10 (189-292), 14-17 (444-901), 19 (962-972), 19 (974-975), 20-22 (980-1095), 23 (8276-6984), 24 (9608-5503), 25 (6863-3249), 26 (6716-8511) KDR (NM_002253) 1-2 (1-49), 3 (54-120), 4-14 (136-712), 15-27 (714-1221), 28 (3911-3559), 29-30 (1537-4990) KEAP1 (NM_012289) 2-6 (1-625) VIJI (NM_000420) 1-19 (1-733) KIT (NM_000222) 1-14 (1-712), 15 (722-738), 16-21 (745-977) KLF4 (NM_004235) 1-5 (1-480) KLHL6 (NM_130446) 1-7 (1-622) KMT2A (NM_005933) 1-36 (1-3970) KMT2B (NM_014727) 1-3 (7-429), 3 (433-627), 3-28 (633-6363), 28-37 (3422-3202) KMT2C (NM_170606) 1-24 (1-1277), 25-27 (5735-5377), 28 (1895-1148), 29-59 (2765-0365) KMT2D (NM_003482) 1-42 (1-9074), 42-54 (6461-6190) KNSTRN (NM_033286) 1-9 (1-317) KRAS (NM_004985) 2-3 (1-89), 4 (109-147), 5 (151-187) LATS1 (NM_004690) 2-8 (1-1131) LATS2 (NM_014572) 2-8 (1-1089) LCK (NM_005356) 2-13 (1-510) LIG4 (NM_002312) 2 (643-912), 2 (634-640), 2 (377-632), 2 (262-369), 2 (1-38), 2 (52-257) LMO1 (NM_002315) 1-4 (1-157) LRP1B (NM_018557) 1 (1-28), 2 (36-60), 3 (70-114), 4 (128-142), 5 (155-198), 6 (203-284), 7 (300-322), 11 (535-563), 12 (613-636), 13 (657-730), 14 (739-775), 17 (882-924), 18 (944-951), 18 (941-942), 18 (939), 19-20 (963-1046), 21 (4578-1721), 22 (0078-8548), 23 (0447-2705), 24-25 (7977-1941), 28-34 (7131-9423), 35 (2049-8681), 36 (5902-0612), 37 (5394-0001), 38 (3536-2170), 39 (2078), 39 (7089-3408), 40 (1494-5069), 41 (8181-1144), 41 (6341-0316), 42 (3428-1045), 43 (1835-1668), 44 (3757-4821), 45 (3153-7025), 46-47 (0894-3857), 48 (2128-5916), 49 (6992-0769), 50 (1668-9444), 51 (7604-2657), 52-53 (1625-9495), 54 (0475-0402), 55 (1147-8649), 56 (4932-0915), 57 (6992-0650), 57 (6253-7519), 58 (2412-4340), 59 (6948-7714), 60 (5841-9780), 61 (3788-1749), 62 (0626-9289), 63-69 (6139-9256), 70 (7662-3462), 71 (9815-3338), 72 (4364-5847), 73 (3037-0149), 74 (5852-5224), 75 (2630-9830), 76-77 (3343-6403), 78 (3522-3431), 80 (6084-7592), 81 (2452-0292), 82-83 (8082-5498), 84 (4568-4927), 85 (6965-7910), 86 (5064-2957), 86 (2101-6082), 86 (4376), 87 (3286-4548), 88 (3141-5954), 89 (5349-3873), 89 (1452-8876), 89 (4093), 90 (3123-4093) JASPAL (NM_002350) 2-13 (1-513) MAD2L2 (NM_006341) 2-9 (1-212) MAGOH (NM_002370) 1-5 (1-147) MALT1 (NM_173844) 1-2 (1-126), 3 (138-164), 4-6 (167-309), 8-16 (318-814) MAP2K1 (NM_002755) 1-11 (1-394) MAP2K2 (NM_030662) 1-11 (1-401) MAP2K4 (NM_003010) 1 (1-39), 2-3 (42-131), 4 (142-171), 6-9 (212-347), 10 (359-362) MAP2K7 (NM_145185) 1-11 (1-420) MAP3K1 (NM_005921) 1 (1-161), 2-6 (169-434), 7 (441-473), 9 (505-556), 10 (563-655), 11 (667-686), 12 (697-719), 13-14 (769-940), 14-19 (943-1463), 20 (8844-4196) KZI0E37 (NM_004721) 2-14 (1-967) KXC5L34 (NM_003954) 2-17 (1-947) MAP3K4 (NM_005922) 1 (1-51), 2 (57-110), 3 (115-317), 3 (320-323), 3 (326), 3 (328-382), 3 (398-402), 3 (404-525), 3 (539-543), 3 (548-555), 4-27 (570-1609) MAPK1 (NM_002745) 1-8 (1-361) MAPK3 (NM_002746) 1-8 (10-380) MAPK8 (NM_139049) 4-14 (1-428) MAX (NM_002382) 1-5 (1-161) MCL1 (NM_021960) 1-3 (1-351) MDC1 (NM_014641) 2-15 (12090) MDM2 (NM_002392) 1-11 (1-498) MDM4 (NM_002393) 2-11 (1-491) MED12 (NM_005120) 1-45 (1-2178) MEF2B (NM_001145785) 2-9 (1-369) MEN1 (NM_130799) 2-10 (1-611) MERTK (NM_006343) 1-19 (1-1000) MET (NM_001127500) 2 (1-400), 3 (411-460), 4-10 (465-806), 11 (821-872), 13 (939-975), 15-21 (0862-7074) MGA (NM_001164273) 2-24 (1-3066) MGMT (NM_002412) 2-5 (1-208) MITF (NM_000248) 1-3 (1-115), 4 (123-143), 5-9 (148-420) MLH1 (NM_000249) 1-19 (1-757) MLH3 (NM_001040108) 2 (412-1094), 2 (404-410), 2 (398-399), 2 (389-391), 2 (1-384), 2 (387), 3-13 (1524-3825) MPL (NM_005373) 1-12 (1-636) MRE11 (NM_005590) 2-7 (1-220), 8 (224-278), 9 (284-327), 10-12 (341-442), 13 (446-499), 14-19 (030-151) MSH2 (NM_000251) 1-16 (1-935) MSH3 (NM_002439) 1-2 (1-120), 3 (126-190), 4-14 (194-695), 15 (907-817), 16-18 (911-528), 20-24 (506-9608) MSH6 (NM_000179) 1-3 (1-209), 4-9 (215-1334) MST1 (NM_020998) 1-18 (1-726) MST1R (NM_002447) 1-20 (1-1401) MTAP (NM_002451) 1 (1-11), 3-8 (41-284) MTOR (NM_004958) 2-58 (1-2550) MUTYH (NM_012222) 1-16 (1-547) MXD4 (NM_006454) 1-6 (1-210) MYB (NM_005375) 2 (11-46), 3-15 (48-641) MYC (NM_002467) 1-3 (1-455) MYCL (NM_005376) 1-2 (1-237) MYCN (NM_005378) 2-3 (1-465) MYD88 (NM_002468) 1-5 (1-297) MYOD1 (NM_002478) 1-3 (1-321) NBN (NM_002485) 1-2 (1-57), 3 (68-103), 4-9 (107-375), 10 (391), 10 (393-457), 11-16 (256-795) NCOA3 (NM_181659) 3-22 (1-1421) NCOR1 (NM_006311) 2-7 (1-263), 8-23 (271-1059), 24-46 (5574-4054) NEGR1 (NM_173808) 1-3 (1-179), 5 (223-263) NF1 (NM_001042492) 1-4 (1-160), 6-7 (196-242), 8-15 (244-574), 16 (581-611), 17-21 (616-950), 22 (953-997), 24 (1950-6568), 25 (7089-4762), 26-58 (2150-7500) NF2 (NM_000268) 1-16 (1-596) NFE2L2 (NM_006164) 1-3 (1-134), 4 (138-195), 5 (204-606) NFKBIA (NM_020529) 1-6 (1-318) NHEJ1 (NM_024782) 2-8 (1-300) NKX2-1 (NM_003317) 1-2 (1-372) NKX3-1 (NM_006167) 1-2 (1-235) NOTCH1 (NM_017617) 1-34 (1-2556) NOTCH2 (NM_024408) 1 (1-25), 3-4 (52-251), 5 (261-288), 6-34 (292-2472) NOTCH3 (NM_000435) 1-33 (12322) NOTCH4 (NM_004557) 1-30 (1-2004) NPM1 (NM_002520) 1-11 (1-295) NRAS (NM_002524) 2-5 (1-190) NSD1 (NM_022455) 2-23 (12697) NSD3 (NM_023034) 2-24 (1-1438) NT5C2 (NM_001351169) 3-19 (1-562) NTRK1 (NM_002529) 1-17 (1-797) NTRK2 (NM_006180) 4 (1-71), 5-9 (77-233), 10-21 (247-839) NTRK3 (NM_002530) 3-19 (1-826) NUP93 (NM_014669) 2-22 (1-820) NUTM1 (NM_001284292) 1-8 (1-1161) PAK1 (NM_002576) 2-9 (1-295), 10 (300-325), 11-15 (333-546) PAK3 (NM_002578) 5 (1-59), 6-8 (67-156), 9 (177-188), 12-14 (277-370), 15 (374-391), 15 (393), 16-18 (404-545) PAK5 (NM_177990) 3-10 (1-720) PALB2 (NM_024675) 1-13 (1-1187) PARP1 (NM_001618) 1-23 (1-1015) PARP2 (NM_001042618) 1-13 (1-443), 14 (456-469), 15-16 (483-564) PARP3 (NM_001370240) 2-11 (1-534) PARP4 (NM_006437) 2-33 (1-1660) PARPBP (NM_017915) 2 (7-45), 4 (130-165), 5 (180-222), 6 (231-257), 7-8 (274-390), 9 (395-421), 10 (434-463), 11 (467-574) PAX5 (NM_016734) 1-10 (1-392) PAXX (NM_183241) 1-7 (1-205) PBRM1 (NM_018313) 2-30 (1-1583) PCNA (NM_182649) 1-6 (1-262) PDCD1 (NM_005018) 1-5 (1-289) TGQV3TD4 (NM_025239) 2-7 (1-274) PDGFB (NM_002608) 1-6 (1-242) PDGFRA (NM_006206) 2-23 (1-1090) PDGFRB (NM_002609) 2-23 (1-1107) PDK1 (NM_002610) 1-11 (1-437) PER1 (NM_002616) 2-23 (1-1291) PGD (NM_002631) 1-13 (1-484) PGR (NM_000926) 1-3 (1-636), 4 (643-738), 5 (754-778), 6 (800-813), 7 (837-872), 8 (894-922) PHF6 (NM_032458) 2-7 (1-238), 8-9 (244-323), 10 (341-353) PHOX2B (NM_003924) 1-3 (1-315) BMM1E2P (NM_002646) 3-34 (1-1635) ILC7N1Q (NM_001288772) 2 (11-50), 2 (54-62), 2 (81-127), 2 (130-133), 2 (135-221), 3-5 (227-342), 6 (351-377), 7-9 (380-465), 11 (477-542), 12 (558-561), 13 (587-624), 14-16 (627-772), 17 (775-801), 18 (804-835), 19 (845-890), 20 (896-931), 21-23 (937-1050), 24 (0455-2337), 25 (4635-2437), 26-28 (9256-3153), 29 (5833-1993), 30 (8900-8506), 31 (7678-8533), 32 (7916-9824), 33 (7939-3142) PIK3C3 (NM_002647) 1 (1-23), 2 (29-84), 3 (86-134), 4 (148-152), 4 (154-163), 5 (184-186), 6 (207-238), 7 (247-256), 10 (343-387), 11-12 (391-472), 14-15 (495-569), 16 (584-601), 17-21 (614-755), 22 (763-807), 23 (814-837), 24 (842-883) PIK3CA (NM_006218) 2 (5-118), 3 (123-181), 4-9 (188-513), 10 (527-553), 11 (555-582), 12 (598-625), 14-15 (672-765), 16 (768-799), 17-21 (811-1069) PIK3CB (NM_006219) 3-24 (1-1071) PIK3CD (NM_005026) 3-24 (1-1045) PIK3CG (NM_002649) 2 (1-665), 3 (670-682), 4 (696-759), 5 (763-797), 6 (802-845), 7-11 (847-1088) PIK3R1 (NM_181523) 2-5 (1-212), 6-7 (225-306), 8 (308-333), 9 (350-362), 10 (389-418), 11 (454-461), 12-16 (482-725) PIK3R2 (NM_005027) 2-16 (1-729) PIK3R3 (NM_003629) 1-10 (1-462) PIM1 (NM_002648) 1-6 (1-314) PLCG1 (NM_002660) 1-32 (1-1292) PLCG2 (NM_002661) 2-33 (1-1266) PLK2 (NM_006622) 1-5 (1-238), 6 (240-270), 7-8 (281-380), 9-12 (390-580), 13 (587-620), 14 (630-673) PMAIP1 (NM_021127) 1-2 (1-54) PML (NM_033238) 1-9 (1-883) PMS1 (NM_000534) 2-4 (1-140), 5 (151-193), 6-13 (195-933) PMS2 (NM_000535) 1-14 (1-815) PNKP (NM_007254) 2-17 (1-522) PNRC1 (NM_006813) 1-2 (1-328) POLA1 (NM_001330360) 1-3 (1-89), 5-13 (116-464), 16-19 (563-680), 20 (693-715), 24-26 (856-987), 27-29 (989-1099), 32 (1473-7881), 35-37 (8090-5410) POLD1 (NM_002691) 2-27 (1-1108) POLE (NM_006231) 1-49 (-2286) POLQ (NM_199420) 1-19 (), 20 (0772-1015), 20 (2107), 20 (2103), 20 (2099), 20 (2794-0737), 20 (2096), 21-30 (0894-3120) PPARG (NM_015869) 1 (7-16), 2-3 (28-159), 4 (172-185), 5-7 (207-506) PPM1D (NM_003620) 1-6 (1-606) EIA6Z7B (NM_002711) 1 (110), 1 (101-107), 1 (96-97), 1 (86-89), 1 (51-59), 1 (63-82), 3 (281-308), 4 (1043), 4 (3008-7658), 4 (864), 4 (816-857), 4 (788-795), 4 (773-779), 4 (768), 4 (702), 4 (658), 4 (653-656), 4 (560-582) MZK3A2P (NM_014225) 1-15 (1-590) ZZB4N3I (NM_002717) 1-2 (1-28), 3-4 (35-116), 5-10 (118-448) PPP4R4 (NM_058237) 1-2 (1-64), 3 (75-92), 4-8 (99-285), 9 (294-312), 10 (344-365), 11 (383-416), 13-15 (449-566), 16-22 (573-793), 23-25 (798-874) PPP6C (NM_002721) 1-7 (1-306) PRC1 (NM_003981) 1-15 (1-621) PRDM1 (NM_001198) 1-7 (1-826) PREX2 (NM_024870) 1-3 (1-112), 4 (123-139), 5 (149-164), 6-7 (182-280), 8-24 (288-980), 25-28 (985-1168), 29 (4145-2967), 30-33 (6759-0314), 34 (5258-7370), 35-40 (1831-2427) PRG4 (NM_005807) 2-7 (1-624), 7-13 (650-1405) HCUKM4U (NM_212472) 2-11 (1-382) PRKCI (NM_002740) 1-18 (1-597) PRKDC (NM_006904) 1-87 (1-4128) PRKN (NM_004562) 1-12 (1-466) PTCH1 (NM_000264) 1-23 (1-1448) PTEN (NM_000314) 1-3 (1-56), 3 (58-63), 4-7 (71-267), 8-9 (275-404) PTK2 (NM_001352701) 3-7 (1-195), 8-12 (198-363), 12-36 (365-1097) PTPN11 (NM_002834) 1-15 (1-594) PTPRB (NM_001109754) 1-34 (1-2216) PTPRD (NM_002839) 12 (1-22), 13 (33-51), 15 (138-140), 15 (142-173), 18-19 (190-231), 20 (285-287), 20 (240), 20 (242-283), 21 (321-515), 22 (522-553), 23-30 (560-1138), 32 (6267-1023), 33 (8913-8997), 34 (3145-1827), 35 (2381-7312), 36 (3378-4557), 37 (5307-7267), 37 (2308-2788), 39 (8508-6736), 39 (6166-9208), 40 (7787-9029), 40 (1583), 41-42 (3225-7828), 44 (2505-5247) PTPRS (NM_002850) 2-38 (1-1949) PTPRT (NM_133170) 1-9 (1-516), 10-32 (521-1461) QKI (NM_006775) 1 (1-48), 2 (60-85), 3-8 (96-342) RAB35 (NM_006861) 1-6 (1-202) RAC1 (NM_006908) 1-6 (1-193) RAD21 (NM_006265) 2 (6-48), 3 (57-88), 4 (93-120), 5-6 (125-230), 7 (237-269), 8 (281-307), 9-11 (313-490), 12 (492-533), 13-14 (541-632) RAD50 (NM_005732) 1-5 (1-252), 6 (261), 6 (263-295), 7 (299-348), 8-11 (353-598), 12-19 (600-1012), 20 (1755-9728), 21-25 (8662-1778) RAD51 (NM_002875) 2-10 (1-340) CFQ23MW5 (NM_006479) 1-7 (1-241), 8 (248-285), 9 (291-336) RAD51B (NM_133509) 2-6 (1-191), 7-10 (198-346) RAD51C (NM_002876) 1-2 (1-136) RAD51D (NM_133629) 1-7 (1-217) RAD52 (NM_134424) 2-12 (1-419) RAD54L (NM_003579) 1-18 (1-748) RAF1 (NM_002880) 2-17 (1-649) JOYA (NM_000964) 2-9 (1-463) RASA1 (NM_002890) 1 (1-180), 2 (188-219), 3 (242-263), 5-6 (300-350), 8 (385-386), 8 (388), 10 (448-470), 11 (503-517), 12 (544-564), 13 (572-591), 14-18 (594-829), 19-20 (841-897), 22 (924-937), 23 (951-973), 24-25 (976-1048) RB1 (NM_000321) 1-5 (1-180), 6 (183-198), 7-14 (203-463), 16-17 (474-565), 18 (574-600), 19-27 (605-929) RBM10 (NM_005676) 2-24 (1-931) RECQL4 (NM_004260) 1-22 (1-1209) REL (NM_002908) 1-8 (1-308), 10-11 (340-620) RET (NM_020975) 1-20 (1-1115) REV3L (NM_001372078) 1 (1-47), 2 (53-105), 3 (120), 4 (137-185), 5-12 (189-533), 13 (7660-8096), 13 (1380), 13 (5231-4772), 13 (1199), 13 (8734-9605), 13 (1190), 13 (1187), 13 (3480-9615), 13 (1023), 13 (533-961), 13 (963), 14 (4293-3465), 15-21 (0711-6180), 22-32 (9781-7057) RFC1 (NM_002913) 1-25 (1-1148) RFC2 (NM_181471) 1-11 (1-355) RFC3 (NM_002915) 1-2 (1-74), 3 (79-93), 4-7 (98-270), 9 (300-357) RFC4 (NM_181573) 2-11 (1-364) RFC5 (NM_007370) 1-11 (1-341) RHEB (NM_005614) 1-8 (1-185) RHOA (NM_001664) 2-5 (1-194) RICTOR (NM_152756) 1-4 (1-87), 6 (131-152), 7 (160-192), 8-16 (195-462), 18 (535-536), 18 (539-540), 20 (590-610), 21-25 (627-833), 26 (838-866), 27 (873-895), 29 (934-960), 30 (991-1029), 31 (5722-2400), 31 (3991-1023), 31 (0510-2232), 31 (7362-2501), 31 (5309-0865), 31 (0443-5869), 31 (5750-6059), 31 (1151), 31 (3921-9159), 31 (6652-9228), 31 (3398-8380), 31 (1062), 32 (2627-9389), 33 (6782-3126), 34 (4708-7234), 35-38 (9712-7865) RIF1 (NM_018151) 2-30 (1-1580), 30 (1583), 30 (1469-6338), 30-33 (0525-6865), 34 (4471-5131), 35-36 (6319-4495) RIT1 (NM_006912) 2-6 (1-220) RMI1 (NM_001358291) 3 (12-57), 3 (83-145), 3 (185-220), 3 (277-279), 3 (285-290), 3 (395), 3 (397), 3 (487-579) RMI2 (NM_152308) 1-2 (1-148) RNF43 (NM_017763) 2-10 (1-784) ROS1 (NM_002944) 1-8 (1-286), 10 (335-376), 11 (397-413), 12-13 (421-667), 14-15 (672-768), 16 (771-832), 17-19 (837-991), 20 (997-1040), 21 (8381-9002), 21 (1108), 22-24 (7089-6808), 25-27 (2761-8241), 28 (3006-5509), 29 (6184-0572), 29 (1581), 29 (1577), 29 (1574), 30 (4500-6694), 31-33 (5744-2898), 34-36 (2204-7788), 37 (1982-9255), 38 (3498-8524), 38 (2031), 39 (3786-8581), 41 (6997-5851), 42-43 (3134-3222) RPA1 (NM_002945) 1-17 (1-617) RPA2 (NM_002946) 1-9 (1-271) RPA3 (NM_002947) 5-8 (1-122) RPA4 (NM_013347) 1 (1-262) ECL2XM5 (NM_003942) 1-17 (1-773) PCL7MY5 (NM_003161) 1-15 (1-526) JMI7UF0 (NM_003952) 1-15 (1-483) RPTOR (NM_020761) 1-34 (1-1336) RSPO1 (NM_001242908) 3-7 (1-264) RSPO2 (NM_178565) 2-3 (1-95), 4-6 (103-244) RUNX1 (NM_001754) 2-4 (1-117), 5 (126-166), 6-9 (170-481) SJAE7N0 (NM_175635) 2-11 (1-568) RYBP (NM_012234) 1-4 (1-219) SDHA (NM_004168) 1-15 (1-665) SDHAF2 (NM_017841) 1-4 (1-167) SDHB (NM_003000) 1-8 (1-281) SDHC (NM_003001) 1-6 (1-170) SDHD (NM_003002) 1-4 (1-160) SESN1 (NM_014454) 1 (1-93), 2 (98-115), 3 (120-175), 4 (195-241), 5 (251-310), 6-10 (325-552) SETBP1 (NM_015559) 2-6 (1-1597) SETD2 (NM_014159) 1-2 (1-29), 3 (2052-5752), 3 (2490-8794), 3 (1206), 3 (9208-2910), 3 (1643-8866), 3 (2319-1468), 3 (0792-8947), 3 (1053), 3 (8380-9631), 3 (30-846), 3 (881-985), 4-21 (0111-3774) SF3B1 (NM_012433) 1-14 (1-684), 15 (693-739), 16 (742-790), 17-18 (792-904), 19 (916-967), 20-25 (975-1305) SGK1 (NM_005627) 1-12 (1-432) SH2B3 (NM_005475) 2-8 (1-576) SH2D1A (NM_002351) 1-2 (1-67) SHLD1 (NM_152504) 2-3 (1-206) SHLD2 (NM_001330112) 3 (1-294), 3-6 (341-641), 7-10 (655-905) SHPRH (NM_001042683) 2 (149-196), 2 (10-54), 2 (61-64), 3 (220-237), 4 (264-320), 5 (337-343), 6 (356-399), 7 (415-429), 8 (455-507), 9 (662-745), 10-14 (747-1038), 17 (1177-9169), 18 (3989-6741), 19 (4864-7870), 19 (1231), 20 (3395-3672), 21 (1926-9808), 22 (8516-4960), 23-26 (3559-0487), 27 (3500-9229), 28-30 (8366-6897) SHQ1 (NM_018130) 1-6 (1-243), 7 (266), 8-11 (295-578) AYH94K6 (NM_006424) 2-13 (1-691) SLIT2 (NM_004787) 1-2 (1-84), 3 (88-105), 4-5 (108-155), 6 (169-179), 7 (187-197), 8-20 (204-715), 21 (723-750), 22 (761-781), 23 (796-806), 24 (811-826), 25-26 (830-909), 27 (918-949), 28 (951-979), 29 (992-1021), 30-33 (0997-5588), 34 (1832-5281), 35-37 (5134-9613) SLX4 (NM_032444) 2-15 (1-1835) SMAD2 (NM_005901) 2-3 (1-109), 4 (129-153), 5 (188-204), 6-8 (219-333), 9 (348-363), 10 (394-406), 11 (427-468) SMAD3 (NM_005902) 1-9 (1-426) SMAD4 (NM_005359) 2-4 (1-152), 5-12 (154-553) SMARCA2 (NM_003070) 2-5 (1-349), 6 (357-385), 7-18 (392-923), 19 (928-960), 20-27 (962-1327), 28 (2307-4273), 29-34 (7283-2175) SMARCA4 (NM_003072) 2-35 (1-1648) SMARCAD1 (NM_020159) 2-9 (1-427), 10-24 (431-1027) SMARCB1 (NM_003073) 1-9 (1-386) SMARCD1 (NM_003076) 1-13 (1-516) SMC1A (NM_006306) 1-25 (1-1234) SMC3 (NM_005445) 1-22 (1-841), 23 (846-882), 24-29 (884-1218) SMC5 (NM_015110) 1-4 (1-180), 5-8 (182-351), 9 (360-431), 10 (448-478), 11-12 (489-558), 13 (562-600), 14-16 (603-758), 17-19 (764-856), 20-25 (860-1102) SMC6 (NM_001142286) 3-17 (1-614), 18 (618-663), 19 (669-704), 20-28 (715-1092) SMO (NM_005631) 1-12 (1-788) SNCAIP (NM_005460) 2-5 (1-394), 6 (404-420), 6 (422), 7-11 (433-920) SOCS1 (NM_003745) 2 (1-212) SOS1 (NM_005633) 1-2 (1-71), 3 (74-111), 4-5 (116-240), 6-9 (243-401), 10 (410-508), 10 (521-609), 11 (620-643), 12 (647-680), 13 (688-719), 14-23 (213-1334) SOX10 (NM_006941) 2-4 (1-467) SOX17 (NM_022454) 1-2 (1-415) SOX2 (NM_003106) 1 (1-318) SOX9 (NM_000346) 1-3 (1-510) SPEN (NM_015001) 1-15 (1-3665) SPOP (NM_003563) 3-11 (1-375) SRC (NM_005417) 4-14 (1-537) SRSF2 (NM_003016) 1-2 (1-222) SSBP1 (NM_003143) 2-7 (1-149) STAG2 (NM_006603) 2-6 (1-154), 8-10 (223-339), 11-15 (341-512), 16-20 (522-539), 21-23 (529-659), 24 (950-281), 25-29 (845-1093), 30-32 (0118-8505) STAT3 (NM_139276) 2-24 (1-771) STAT4 (NM_003151) 2 (7-43), 3 (48-78), 4-6 (92-180), 7-24 (182-749) STAT5A (NM_003152) 3-20 (1-795) STAT5B (NM_012448) 2-19 (1-788) STK11 (NM_000455) 1-9 (1-434) STK19 (NM_004197) 1-7 (1-350) STK40 (NM_001282547) 2-11 (1-436) SUFU (NM_016169) 1-12 (1-485) SUZ12 (NM_015355) 1-16 (1-740) SYK (NM_003177) 2-14 (1-636) TBC1D4 (NM_014832) 1-17 (1-1052), 18-19 (2335-1609), 20 (8559-6658), 21 (4258-1080) TBX3 (NM_005996) 1-7 (1-724) TCF3 (NM_003200) 2-19 (1-655) TCF7L2 (NM_030756) 1-14 (1-597) JAZMIN (NM_000459) 1-4 (1-210), 5-9 (215-443), 10 (450-480), 11-12 (497-637), 13 (691-726), 13 (728-730), 14-21 (737-1067), 23 (9456-9861) TENT5C (NM_017709) 2 (1-392) TERC (NR_001566) 1 (1-151) TERT (NM_198253) 1-16 (1-1133) TET1 (NM_030625) 2-12 (1-2137) TET2 (NM_001127208) 3-6 (1-1268), 7-9 (2899-3885), 10 (3182-1482), 11 (2282-7313) TFE3 (NM_006521) 1-10 (1-576) TGFB1 (NM_000660) 1-7 (1-391) TGFBR1 (NM_004612) 1-9 (1-504) TGFBR2 (NM_003242) 1-2 (1-88), 3-7 (92-568) NGPO829 (NM_017849) 2-4 (1-239) TMPRSS2 (NM_005656) 2-14 (1-493) TNF (NM_000594) 1-4 (1-234) TNFAIP3 (NM_006290) 2-9 (1-791) DTFXMJ25 (NM_003820) 1-8 (1-284) TOP1 (NM_003286) 1-2 (1-20), 3-6 (22-144), 8-21 (170-766) TOP2A (NM_001067) 1-35 (1-1532) TOP3A (NM_004618) 1-19 (1-1002) TOPBP1 (NM_007027) 2-25 (1-1391), 26 (2854-1395), 27-28 (7710-5365) TP53 (NM_000546) 2-11 (1-394) UN67AO0 (NM_001141980) 1-12 (1-906), 13 (912-946), 14-17 (948-1224), 18-28 (9902-6096) TP53I3 (NM_004881) 1-5 (1-333) TP63 (NM_003722) 1-14 (3681) TRAF2 (NM_021138) 2-11 (1502) TRAF7 (NM_032271) 2-21 (167) AKANNO99 (NM_024941) 1-4 (1-100), 5 (108-141), 6-7 (143-182), 9-10 (189-299), 12-13 (333-418) TSC1 (NM_000368) 3-5 (1-121), 6 (123-168), 7-23 (170-1165) TSC2 (NM_000548) 2-42 (1-1808) TSHR (NM_000369) 1 (1-57), 2 (62-70), 3-10 (81-765) TTK (NM_003318) 2 (1-47), 3 (57-81), 3 (85-86), 4 (126-144), 5 (165-191), 6 (211-238), 7-8 (248-290), 9 (302-316), 10 (339-355), 11 (370-419), 12-14 (423-538), 15 (560-573), 16 (598-631), 17 (649-681), 18-19 (946-258), 20 (755-485), 21 (799-826), 22 (839-852) TYRO3 (NM_006293) 1-19 (1-891) U2AF1 (NM_006758) 1-8 (1-241) VEGFA (NM_003376) 1-8 (1-396) VHL (NM_000551) 1-3 (1-214) VTCN1 (NM_024626) 1-5 (1-283) WRN (NM_000553) 2-6 (1-218), 7 (236), 8-15 (242-610), 16 (612-630), 17-21 (633-856), 22 (885-903), 23-33 (911-1328), 34 (5114-6120), 35 (2145-7773) WT1 (NM_024426) 1-10 (1-523) XIAP (NM_001167) 2-6 (1-434), 7 (447-485) XPO1 (NM_003400) 2-25 (1-1072) XRCC2 (NM_005431) 1-3 (1-281) XRCC3 (NM_005432) 4-10 (1-347) XRCC4 (NM_022406) 2-3 (1-98), 4-5 (106-213), 6 (221-240), 7 (259-295), 8 (310-318) XRCC5 (NM_021141) 1-21 (1-733) XRCC6 (NM_001469) 2-13 (1-610) YAP1 (NM_001130145) 1-3 (1-230), 5-9 (268-505) YES1 (NM_005433) 2-12 (1-544) ZFHX3 (NM_006885) 2-10 (1-3704) BAH345 (NM_006526) 1-4 (1-1049) HPI051 (NM_025069) 1-2 (1-591) ZRSR2 (NM_005089) 1-4 (1-104), 6-11 (134-483) E. APPENDIX References: 1.https://pubmed.nc bi.nlm.nih.gov/1272 7799, 2.https://pubmed.[facility].nih.gov/2186 2683, 3.https://pubmed.[facility].nih.gov/1039 8103, 4.https://pubmed.[facility].gov/2013 7967, 5.https://pubmed.[facility].nih.gov/1966 9400, 6.https://pubmed.[facility].gov/2056 0890, 7.https://pubmed.[facility].gov/215 1642, 8.https://pubmed.[facility].nih.gov/8524 100, 9.https://pubmed.[facility].gov/6092 966, 10.https://pubmed.[facility].nih.gov/193 61360, 11.https://pubmed.[facility].nih.gov/166 04707, 12.https://pubmed.[facility].nih.gov/222 71690, 13.https://pubmed.[facility].nih.gov/958 6664, 14.https://pubmed.[facility].nih.gov/981 6185, 15.https://pubmed.[facility].nih.gov/240 26068, 16.https://pubmed.[facility].nih.gov/231 56221, 17.https://pubmed.n i.[facility].nih.gov/256 71965, 18.https://pubmed.[facility].nih.gov/258 43459, 19.https://pubmed.n i.[facility].nih.gov/255 50135, 20.https://pubmed.n i.[facility].nih.gov/191 85378, 21.https://pubmed.[facility].nih.gov/208 94763, 22.https://pubmed.n i.[facility].nih.gov/227 32224, 23.https://pubmed.n i.[facility].nih.gov/188 50241, 24.https://pubmed.[facility].nih.gov/156 85392, 25.https://pubmed.n [facility].nih.gov/268 19359, 26.https://pubmed.n [facility].nih.gov/266 71544, 27.https://pubmed. [facility].nih.gov/260 71711, 28.https://pubmed. [facility].nih.gov/234 76064, 29.https://pubmed.n [facility].nih.gov/246 71138, 30.https://pubmed.n [facility].nih.gov/295 23292, 31.https://pubmed. [facility].nih.gov/261 65966, 32.https://pubmed. [facility].nih.gov/259 95715, 33.https://pubmed. [facility].nih.gov/253 16570, 34.https://pubmed.n [facility].nih.gov/234 45770, 35.https://pubmed.n [facility].nih.gov/258 96988, 36.https://pubmed.n [facility].nih.gov/220 12356, 37.https://pubmed.n [facility].[facility].nih.gov/226 32383, 38.https://pubmed.n [facility].nih.gov/194 13480, 39.https://pubmed.n [facility].nih.gov/190 06668, 40.https://pubmed.n [facility].nih.gov/273 59147, 41.https://pubmed.n [facility].nih.gov/268 65553, 42.https://pubmed.n [facility].nih.gov/252 93707, 43.https://pubmed.n [facility].nih.gov/235 86748, 44.https://pubmed.n [facility].nih.gov/271 86056, 45.https://pubmed.n [facility].nih.gov/270 89092, 46.https://pubmed.n [facility].nlm.nih.gov/247 70564, 47.http://brenda montez.asco.org/basilia rd/433524/abstract, 48.https://pubmed.n [facility].nlm.nih.gov/150 34914, 49.https://pubmed.n [facility].nlm.nih.gov/266 59728, 50.https://pubmed.n [facility].nlm.nih.gov/221 56964, 51.https://pubmed.n [facility].nlm.nih.gov/269 23205, 52.https://pubmed.n [facility].nlm.nih.gov/267 63997, 53.https://pubmed.n [facility].nlm.nih.gov/247 95924, 54.https://pubmed.n [facility].nlm.nih.gov/206 12708, 55.https://pubmed.n [facility].nlm.nih.gov/274 50153, 56.https://pubmed.n [facility].nlm.nih.gov/265 80889, 57.https://pubmed.n [facility].nlm.nih.gov/181 88904, 58.https://pubmed.n [facility].nlm.nih.gov/305 11285, 59.https://pubmed.n [facility].nlm.nih.gov/117 59004, 60.https://pubmed.n [employer].nlm.nih.gov/292 48880, 61.https://pubmed.n [facility].nlm.nih.gov/254 47781, 62.https://pubmed.n [facility].nlm.nih.gov/255 79658, 63.https://pubmed.n [facility].nlm.nih.gov/862 6650, 64.http://cancerres .aacrjournals.org/c ontent/77/13_Supple ment/1447, 65.https://pubmed.n [facility].nlm.nih.gov/314 80018, 66.https://pubmed.n [facility].nlm.nih.gov/175 22135, 67.https://pubmed.n [facility].nlm.nih.gov/183 55237, 68.https://pubmed.n [employer].nlm.nih.gov/234 89311, 69.https://pubmed.n [employer].nlm.nih.gov/221 62622, 70.https://www.acce ssdata.fda.gov/drug satfda_docs/label/2 025/295893o299kdy.p df, 71.https://pubmed.n [facility].nlm.nih.gov/376 41061, 72.https://pubmed.n [employer].nlm.nih.gov/265 83428, 73.https://pubmed.n [facility].nlm.nih.gov/257 93479, 74.https://pubmed.Biomon[facility].nlm.nih.gov/277 30504, 75.https://pubmed.Bi[facility].nlm.nih.gov/205 69720, 76.https://pubmed.[facility].nih.gov/318 33162, 77.https://pubmed.n [employer].[facility].nih.gov/200 56076, 78.https://pubmed.n [employer].nlm.nih.gov/970 7426, 79.https://pubmed.n [facility].nlm.nih.gov/911 4050, 80.https://pubmed.n [employer].nlm.nih.gov/125 64186, 81.https://pubmed.n [facility].nlm.nih.gov/808 0050, 82.https://pubmed.n [employer].nlm.nih.gov/151 16573, 83.https://pubmed.n [employer].nlm.nih.gov/185 04073, 84.https://pubmed.n [facility].nlm.nih.gov/296 70950, 85.https://pubmed.n [facility].nlm.nih.gov/164 22823, 86.https://pubmed.n [facility].nlm.nih.gov/125 18139, 87.https://pubmed.n [facility].nlm.nih.gov/127 34820, 88.https://pubmed.n [facility].nlm.nih.gov/306 92336, 89.https://pubmed.n [facility].nlm.nih.gov/335 18205, 90.https://pubmed.n i.nlm.nih.gov/310 35304, 91.https://pubmed.n i.[facility].nih.gov/155 03815, 92.https://pubmed.n i.[facility].nih.gov/171 51842, 93.https://pubmed.n i.[facility].nih.gov/155 38271, 94.https://pubmed.n i.[facility].nih.gov/257 26879, 95.https://pubmed.n i.[facility].nih.gov/177 66198, 96.https://pubmed.n i.[facility].nih.gov/163 31365, 97.https://pubmed.n i.[facility].nih.gov/255 77093, 98.https://pubmed.n i.[facility].nih.gov/117 05628, 99.https://pubmed.n i.[facility].nih.gov/285 59669, 100.https://pubmed. ncbi.nlm.nih.gov/11 760198, 101.https://pubmed. ncbi.nlm.nih.gov/27 677468, 102.https://pubmed. ncbi.nlm.nih.gov/25 845332, 103.https://pubmed. ncbi.nlm.nih.gov/29 132389, 104.https://pubmed. ncbi.nlm.nih.gov/15 866507, 105.https://pubmed. ncbi.nlm.nih.gov/16 421656, 106.https://pubmed. ncbi.nlm.nih.gov/ 274881, 107.https://pubmed. ncbi.nlm.nih.gov/32 720653, 108.https://pubmed. ncbi.nlm.nih.gov/11 000920, 109.https://pubmed. ncbi.nlm.nih.gov/22 941237, 110.https://pubmed. ncbi.nlm.nih.gov/17 940263, 111.https://pubmed. ncbi.nlm.nih.gov/30 057651, 112.https://pubmed. ncbi.nlm.nih.gov/ 754180, 113.https://pubmed. ncbi.nlm.nih.gov/30 584526, 114.https://pubmed. ncbi.nlm.nih.gov/16 147489, 115.https://pubmed. ncbi.nlm.nih.gov/78 33274, 116.https://pubmed. ncbi.nlm.nih.gov/27 528576, 117.https://pubmed. ncbi.nlm.nih.gov/ 830689, 118.https://pubmed. ncbi.nlm.nih.gov/ 811686, 119.https://pubmed. ncbi.nlm.nih.gov/ 276863, 120.https://pubmed. ncbi.nlm.nih.gov/29 834867, 121.https://pubmed. ncbi.nlm.nih.gov/ 918771, 122.https://pubmed. ncbi.nlm.nih.gov/24 461891, 123.https://pubmed. ncbi.nlm.nih.gov/14 118408, 124.https://pubmed. ncbi.nlm.nih.gov/ 136789, 125.https://pubmed. ncbi.nlm.nih.gov/ 552167, 126.https://pubmed. ncbi.nlm.nih.gov/ 736335, 127.https://pubmed. ncbi.nlm.nih.gov/24 759892, 128.https://pubmed. ncbi.nlm.nih.gov/ 305923, 129.https://pubmed. ncbi.nlm.nih.gov/ 636212, 130.https://pubmed. ncbi.nlm.nih.gov/ 161442, 131.https://pubmed. ncbi.nlm.nih.gov/ 357672, 132.https://pubmed. ncbi.nlm.nih.gov/ 224879, 133.https://pubmed. ncbi.nlm.nih.gov/ 86465, 134.https://pubmed. ncbi.nlm.nih.gov/17 873228, 135.https://pubmed. ncbi.nlm.nih.gov/ 218323, 136.https://pubmed. ncbi.nlm.nih.gov/16 764108, 137.https://pubmed. ncbi.nlm.nih.gov/ 100595, 138.https://pubmed. ncbi.nlm.nih.gov/88 99974, 139.https://pubmed. ncbi.nlm.nih.gov/ 820732, 140.https://pubmed. ncbi.nlm.nih.gov/14 018934, 141.https://pubmed. ncbi.nlm.nih.gov/30 766605, 142.https://pubmed. ncbi.nlm.nih.gov/82 13132, 143.https://pubmed. ncbi.nlm.nih.gov/19 414287, 144.https://pubmed. ncbi.nlm.nih.gov/10 095085, 145.https://pubmed. ncbi.nlm.nih.gov/20 920939, 146.https://pubmed. ncbi.nlm.nih.gov/15 028714, 147.https://pubmed. ncbi.nlm.nih.gov/15 735022, 148.https://pubmed. ncbi.nlm.nih.gov/ 899598, 149.https://pubmed. ncbi.nlm.nih.gov/15 521075, 150.https://pubmed. ncbi.nlm.nih.gov/29 368320, 151.https://pubmed. ncbi.nlm.nih.gov/ 930223, 152.https://pubmed. ncbi.nlm.nih.gov/30 845791, 153.https://pubmed. ncbi.nlm.nih.gov/ 176476, 154.https://pubmed. ncbi.nlm.nih.gov/22 949990, 155.https://pubmed. ncbi.nlm.nih.gov/ 974671, 156.https://pubmed. ncbi.nlm.nih.gov/22 284934, 157.https://pubmed. ncbi.nlm.nih.gov/ 898420, 158.https://pubmed. ncbi.nlm.nih.gov/ 509865, 159.https://pubmed. ncbi.nlm.nih.gov/32 549529, 160.https://pubmed. ncbi.nlm.nih.gov/30 737944, 161.https://pubmed. ncbi.nlm.nih.gov/27 953032, 162.https://pubmed. ncbi.nlm.nih.gov/29 784875, 163.https://pubmed. ncbi.nlm.nih.gov/20110323 Table 1: Covered genes of interest for SNVs, INDELs and CNVs ABL1 BRCA1 CTNNA1 ETV4 GNA13 IRF2 MGMT PAXX PTPN11 SDHC JAZMIN ABL2 BRCA2 CTNNB1 ETV5 GNAQ IRF4 MITF PBRM1 PTPRB SDHD TENT5C ABRAXAS1 BRD4 CUL3 ETV6 GNAS IRS1 MLH1 PCNA PTPRD SESN1 TERC* ACVR1 BRIP1 CUL4A EWSR1 GPS2 IRS2 MLH3 PDCD1 PTPRS SETBP1 TERT^ ACVR1B BTG1* CUL4B EXO1 GRIN2A JAK1 MPL [id number] PTPRT SETD2 TET1 ACVR2A BTG2* CUX1 EZH2 GRM3 JAK2 MRE11 PDGFB QKI SF3B1 TET2 ADGRA2 BTK CXCR4 FADD GSK3B JAK3 MSH2 PDGFRA RAB35 SGK1 TFE3 AJUBA BUB1 CYLD FANCA H1-2* SEBASTIAN MSH3 PDGFRB RAC1 SH2B3 TGFB1 AKT1 CALR [id number] FANCC H2AX* KAT6A MSH6 PDK1 RAD21 SH2D1A TGFBR1 AKT2 CARD11 DAXX FANCD2 H2BC5* KDM5A MST1 PER1 RAD50 SHLD1 TGFBR2 AKT3 CASP8 MVOSO3T FANCE H3-3A* KDM5C MST1R PGD RAD51 SHLD2 KPFO770 AKTIP CBFB [id number] FANCF H3-3B* KDM6A MTAP PGR [id number] SHPRH TMPRSS2 ALK CBL DDB1 FANCG H3-4* KDR MTOR PHF6 RAD51B SHQ1 TNF [id number] CCN6 DDR1 FANCI H3-5* KEAP1 MUTYH PHOX2B RAD51C [id number] TNFAIP3 AMER1 CCNA2 DDR2 FANCL H3C1* VIJI MXD4 [id number] RAD51D SLIT2 ATZHMN85 ANKRD11 CCND1 DDX3X FANCM H3C10* KIT MYB QKN4C7W RAD52 SLX4 TOP1 APC CCND2 DICER1 FAS H3C11* KLF4 MYC PIK3C3 RAD54L SMAD2 TOP2A AR CCND3 DIS3 FAT1 H3C12* KLHL6 MYCL PIK3CA RAF1 SMAD3 TOP3A ARAF CCNE1 DLL3 FBXW7 H3C13* KMT2A MYCN PIK3CB JOYA SMAD4 TOPBP1 ARFRP1 CD274 DNA2 FGF10 H3C2* KMT2B MYD88 PIK3CD RASA1 SMARCA2 TP53 ARID1A CD276 DNAJB1 FGF14 H3C3* KMT2C MYOD1 PIK3CG RB1 SMARCA4 TI12SQ9 ARID1B CD74 DNMT1 FGF19 H3C4* KMT2D NBN PIK3R1 RBM10 SMARCAD1 TP53I3 ARID2 CD79A DNMT3A FGF23 H3C6* KNSTRN NCOA3 PIK3R2 RECQL4 SMARCB1 TP63 ARID5B CD79B DNMT3B FGF3 H3C7* KRAS NCOR1 PIK3R3 REL SMARCD1 TRAF2 ASCC3 CD8A DOT1L FGF4 H3C8* LATS1 NEGR1 PIM1 RET SMC1A TRAF7 ASPM CDC20 E2F3 FGF5 HDAC2 LATS2 NF1 PLCG1 REV3L SMC3 XGPMJH25 ASXL1 CDC27 EED FGF6 HDAC9 LCK NF2 PLCG2 RFC1 SMC5 TSC1 ASXL2 CDC6 EGFL7 FGF9 HELQ LIG4 NFE2L2 PLK2 RFC2 SMC6 TSC2 ALPA CDC73 EGFR FGFR1 HERC2 LMO1 NFKBIA PMAIP1* RFC3 SMO TSHR ATR CDH1 EIF1AX FGFR2 HFM1 LRP1B NHEJ1 PML RFC4 SNCAIP TTK ATRX CDK12 EIF4A2 FGFR3 HGF JASPAL NKX2-1 PMS1 RFC5 SOCS1 TYRO3 AURKA CDK2 EIF4E FGFR4 HLA-A MAD2L2 NKX3-1 PMS2 RHEB SOS1 U2AF1 AURKB CDK4 ELF3 FH HNF1A MAGOH NOTCH1 PNKP RHOA SOX10 VEGFA AURKC CDK6 ELOC FLCN HOXB13 MALT1 NOTCH2 PNRC1 RICTOR SOX17 VHL AXIN1 CDK8 EMSY FLT1 HRAS MAP2K1 NOTCH3 POLA1 RIF1 SOX2 VTCN1 AXIN2 CDKN1A ENO1 FLT3 HSD3B1 MAP2K2 NOTCH4 POLD1 RIT1 SOX9 WRN TRUNG CDKN1B EP300 FLT4 [id number] MAP2K4 NPM1 POLE RMI1 SPEN WT1 B2M CDKN2A EPCAM FOXA1 [id number] MAP2K7 NRAS POLQ RMI2* SPOP XIAP BAP1 CDKN2B EPHA2 FOXL2 ICOSLG MAP3K1 NSD1 PPARG RNF43 SRC XPO1 BARD1 CDKN2C* EPHA3 FOXO1 ID3* [id number] NSD3 PPM1D ROS1 SRSF2 XRCC2 BBC3 CEBPA EPHA5 FOXP1 IDH1 [id number] NT5C2 [id number] RPA1 SSBP1 XRCC3 BCL10 CENPA EPHA7 FRS2 IDH2 MAP3K4 NTRK1 HZQ3A0D RPA2 STAG2 XRCC4 BCL11A CENPE EPHB1 FTO IFNGR1 MAPK1 NTRK2 CUH9A4V RPA3* STAT3 XRCC5 BCL2 CHAF1A ERBB2 FUBP1 IGF1 MAPK3 NTRK3 PPP4R4 RPA4 STAT4 XRCC6 BCL2L1 CHEK1 ERBB3 FYN IGF1R MAPK8 NUP93 PPP6C LRC1KV7 STAT5A YAP1 SDY0B93 CHEK2 ERBB4 GABRA6 IGF2 MAX NUTM1 PRC1 KAM8HQ5 STAT5B YES1 BCL2L2* CIC ERCC1 QHDQ15T IKBKE MCL1 PAK1 PRDM1 HON1LW1 STK11 ZFHX3 BCL6 COL2A1 ERCC2 GATA1 IKZF1 MDC1 PAK3 PREX2 RPTOR STK19 JIZ584 BCOR COP1 ERCC3 GATA2 IL10 MDM2 PAK5 PRG4 RSPO1 STK40 LGT800 BCORL1 CREBBP ERCC4 GATA3 IL7R MDM4 PALB2 QBGQV4I RSPO2 SUFU ZRSR2 BCR CRKL ERCC5 GATA4 INHA MED12 PARP1 PRKCI RUNX1 SUZ12 BIRC2 CRLF2 ERCC6 GATA6 INHBA MEF2B PARP2 PRKDC BKYO6V9 SYK BIRC3 CSF1R ERG GEN1 INO80 MEN1 PARP3 PRKN RYBP TBC1D4 BLM CSF3R ERRFI1 GID4 INPP4A MERTK PARP4 PTCH1 SDHA TBX3 BMPR1A CTCF ESR1 GLI1 INPP4B MET PARPBP PTEN SDHAF2 TCF3 BRAF CTLA4 ETV1 GNA11 INSR MGA PAX5 PTK2 SDHB TCF7L2 *Gene not included for CNV reporting, ^ Includes promoter region, ncRNA Gene Table 2. Genes with select intronic regions for the detection of DNA-based gene rearrangements ALK introns: 18-19 BRCA2 introns: 2 ETV4 introns: 5-6 EZR introns: 9-11 KIT introns: 16 MYB introns: 14 NTRK2 introns: 12 JOYA introns: 2 SDC4 introns: 2 BCR introns: 7-10 CD74 introns: 6-8 ETV5 introns: 6-7 FGFR1 introns: 1,5,17 KMT2A introns: 6-11 MYC introns: 1 NUTM1 introns: 1 RET introns: 7-11 KCW24G4 introns: 4 BRAF introns: 7-10 EGFR introns: 7,15,24-27 ETV6 introns: 5-6 FGFR2 introns: 1,17 MET* introns 13,14 NOTCH2 introns: 26 PDGFRA introns: 7,9,11 ROS1 introns: 31-35 TMPRSS2 introns: 1-3 BRCA1 introns: 2,7-8,12,16,19-20 EML4 introns: 6,13 EWSR1 introns: 7-13 FGFR3 introns: 17 MSH2 introns: 5 NTRK1 introns: 8-10 RAF1 introns: 4-8 RSPO2 introns: 1 *Targeted for MET exon 14 skipping assessment DISCLAIMER: This test was developed and its performance characteristics determined by the [facility] ([facility] It has not been cleared by the U.S. Food and Drug Administration. However, such approval is not required for clinical implementation, and the test results on the ordered genes have been shown to be clinically useful. This laboratory is CAP accredited and CLIA certified to perform high complexity molecular testing for clinical purposes. 12/08/2024 8:47 AM CDT [facility] Pathologist Signature . Test performed on 12/06/2024 12/08/2024 8:47 AM CDT MOLECULAR DIAGNOSTICS Microsatellite Instability (MSI) by NGS MSI-Stable 12/08/2024 8:47 AM CDT [facility] Tumor Mutational Kane (TMB) 1 mut/Mb 12/08/2024 8:47 AM CDT [facility] Tissue 11/26/2024 10:5 5 AM CDT 11/26/2024 10:55 AM CDT Narrative This result has genomic variants that were not included in this document. Kimi CAPUTO [facility] AP MOLECULAR BIOMARKERS Fi nal Result [facility] LABS [facility] Cancer [address] [address], MOLECULAR DIAGNOSTICS [facility] Molecular Diagnostics Laboratory [address] [place] [address] * RNA Hold (11/26/2024 10:55 AM CDT) Tissue 11/26/2024 10:5 5 AM CDT 11/26/2024 10:55 AM CDT us Kimi Lee PA MDA CP BIOMARKER WORKUPS Final Result MOLECULAR DIAGNOSTICS [facility] Molecular Diagnostics Laboratory [address] [place] [address] * MD BECK Blood Control (11/26/2024 9:08 AM CDT) Blood Peripheral blood specimen / Unknown 11/26/2024 9:08 AM CDT 11/29/2024 3:27 PM CDT Kimi CAPUTO MDA IP HP MOLECULAR DIAG IF OR DERABLES Final Result MOLECULAR DIAGNOSTICS [facility] Molecular Diagnostics Laboratory [address] [place] [address] * Phosphorus Level (11/26/2024 9:08 AM CDT) Only the most recent of7 resultswithin the time period is included. Phosphorus Level 3.3 2.5 - 4.5 mg/dL 11/26/2024 10:10 AM CDT [facility] Blood Peripheral blood specimen / Unknown Venipuncture / Unknown 11/26/2024 9:08 AM CDT 11/26/2024 9:10 AM CDT Kimi CAPUTO LAB BLOOD ORDERABLES Final Res ult [facility] Unless otherwise noted, all lab tests performed by: Division of Pathology and Laboratory Medicine [address] [place] [id number] * Magnesium Level (11/26/2024 9:08 AM CDT) Only the most recent of7 resultswithin the time period is included. Magnesium Level 2.3 1.6 - 2.6 mg/dL 11/26/2024 10:10 AM CDT [facility] Blood Peripheral blood specimen / Unknown Venipuncture / Unknown 11/26/2024 9:08 AM CDT 11/26/2024 9:10 AM CDT Kimi CAPUTO LAB BLOOD ORDERABLES Final Res ult Performing Organization Address City/[facility] Co de Phone Number [facility] Unless otherwise noted, all lab tests performed by: Division of Pathology and Laboratory Medicine [address] [place] [id number] * LDH (11/26/2024 9:08 AM CDT) Only the most recent of2 resultswithin the time period is included. [facility] LDH 189 135 - 225 U/L 11/26/2024 10:10 AM CDT [facility] Blood Peripheral blood specimen / Unknown Venipuncture / Unknown 11/26/2024 9:08 AM CDT 11/26/2024 9:10 AM CDT Narrative [facility] - 11/26/2024 10:10 AM CDT Results greater than 1651 U/L may not be reliable due to matrix effect with extended dilution as it exceeds the director of capital giving's recommended limit. Caution should be exercised when interpreting such values and done in conjunction with clinical context. Kimi CAPUTO LAB BLOOD ORDERABLES Final Res ult Performing Organization Address [facility] Co de Phone Number [facility] Unless otherwise noted, all lab tests performed by: Division of Pathology and Laboratory Medicine [address] [place] [phone] * (ABNORMAL) Hepatic Function Panel (11/16/2024 12:51 AM CDT) Only the most recent of6 resultswithin the time period is included. [facility] Bilirubin Total 3.1(H) 0.0 - 1.2 mg/dL 11/16/2024 1:32 AM CDT [facility] Comment:Indocyanine Green (I CG) may cause falsely elevated bilirubin results. Total and direct bilirubin must not be measured from samples containing indocyanine green. False elevation of total bilirubin can be seen in patients with IgG concentrations above 28 g/L. Bilirubin Direct 2.2(H) 0.0 - 0.2 mg/dL 11/16/2024 1:32 AM CDT [facility] Comment:Indocyanine Green (I CG) may cause falsely elevated bilirubin results. Total and direct bilirubin must not be measured from samples containing indocyanine green. Bilirubin Indirect 0.9 0.0 - 1.0 mg/dL 11/16/2024 1:32 AM CDT [facility] Tot Protein 6.5 6.4 - 8.3 gm/dL 11/16/2024 1:32 AM CDT [facility] Alkaline Phosphatase 188(H) 40 - 129 U/L 11/16/2024 1:32 AM CDT [facility] Albumin Level 3.5 3.5 - 5.2 gm/dL 11/16/2024 1:32 AM CDT [facility] AST 80(H) <=40 U/L 11/16/2024 1:32 AM CDT [facility] ALT 133(H) <=41 U/L 11/16/2024 1:32 AM CDT [facility] Blood Peripheral blood specimen / Unknown Venipuncture / Unknown 11/16/2024 12:51 AM CDT 11/16/2024 12:57 AM CDT Regino Bedoya LAB BLOOD ORDERABLES Final Resul t [facility] Unless otherwise noted, all lab tests performed by: Division of Pathology and Laboratory Medicine [address] [place] [address] * (ABNORMAL) Basic Metabolic Panel- Total Calcium (11/16/2024 12:51 AM CDT) Only the most recent of7 resultswithin the time period is included. eGFR 123 >=60 mL/min/1. 73 sq. m 11/16/2024 1:32 AM CDT [facility] Comment: The eGFRcr is calculated with the 2020 CKD-EPI creatinine equation using creatinine, patient's age, and sex for adults 18 years of age and older. Other factors, especially muscle mass, may affect accuracy and need to be considered. According to the Kidney Disease: Improving Global Outcomes (KDIGO) CKD Work Group 2012 Clinical Practice Guideline, chronic kidney disease (CKD) is defined as the abnormalities of kidney structure or function, present for more than 3 months, with implications for health. CKD should be classified by cause, GFR category, and albuminuria category. KDIGO guidelines provide the following GFR categories. Stage / Description / GFR mL/min/1.73 m2: G1* / Normal or high / >= 90 G2* / Mildly decreased / 60-89 G3a / Mildly to moderately decreased / 45-59 G3b / Moderately to severely decreased / 30-44 G4 / Severely decreased / 15-29 G5 / Kidney failure / <15 *In the absence of evidence of kidney damage, neither G1 nor G2 fulfill criteria for CKD. Calcium Level Total 9.6 8.2 - 10.2 mg/dL 11/16/2024 1:32 AM CDT [facility] Sodium Level 134(L) 136 - 145 mmol/L 11/16/2024 1:32 AM CDT [facility] Potassium Level 4.6(H) 3.4 - 4.5 mmol/L 11/16/2024 1:32 AM CDT [facility] Chloride 98 98 - 107 mmol/L 11/16/2024 1:32 AM CDT [facility] CO2 28 22 - 29 mmol/L 11/16/2024 1:32 AM CDT [facility] Anion Gap 8 4 - 14 mmol/L 11/16/2024 1:32 AM CDT [facility] Creatinine 0.48(L) 0.67 - 1.17 mg/dL 11/16/2024 1:32 AM CDT [facility] BUN 11 6 - 23 mg/dL 11/16/2024 1:32 AM T [facility] Glucose Level 113(H) 70 - 99 mg/dL 11/16/2024 1:32 AM T [facility] Comment: Effective 03/13/16, the glucose reference intervals have been updated based on [place] [employer] guidelines (Standards of Medical Care in Diabetes 2016. Diabetes Care 2016; 39: S13-S22). Fasting blood glucose: Normal: 70-99 mg/dL Impaired fasting glucose (increased risk for diabetes or pre-diabetes): 100-125 mg/dL Diabetes mellitus: >/=126 mg/dL Random blood glucose: Normal: 70-199 mg/dL Note: Random glucose >100 mg/dL is associated with increased risk for diabetes. Blood Peripheral blood specimen / Unknown Venipuncture / Unknown 11/16/2024 12:51 AM CDT 11/16/2024 12:57 AM CDT Regino Bedoya DO LAB BLOOD ORDERABLES Final Resul t Performing Organization Address [facility] de Phone Number [facility] Unless otherwise noted, all lab tests performed by: Division of Pathology and Laboratory Medicine [address] [place] [id number] * (ABNORMAL) Anti-Xa Level (11/15/2024 12:39 PM CDT) Anti-Xa Level 0.64(H) 0.00 - 0.10 IU/mL 11/15/2024 1:41 PM CDT [facility] Comment:Results in primary u nit peaked. Hep Type Enoxaparin 11/15/2024 1:41 PM CDT [facility] Blood Peripheral blood specimen / Unknown Venipuncture / Unknown 11/15/2024 12:39 PM CDT 11/15/2024 12:49 PM CDT Narrative [facility] - 11/15/2024 1:41 PM CDT Anti-Xa Level (Heparin assay for Low Molecular Weight Heparin) Monitoring Guidelines: Blood samples should be obtained 4 hours post SC injection (time of peak level) Therapeutic peak levels: 0.6 - 1 units/mL ( 1 mg/kg q 12hr and estimated CrCl>=30 mL/min) 0.6 - 1 units/mL ( 1 mg/kg q 24hr and estimated CrCl <30 mL/min) 1 - 2 units/mL (1.5 mg/kg q 24hr and estimated CrCl>=30 mL/min) Ref: Chest 2008; 133;141S-1598S Regino Bedoya DO LAB BLOOD ORDERABLES Final Resul t Performing Organization Address City/[facility]/ZIP Co de Phone Number [facility] Unless otherwise noted, all lab tests performed by: Division of Pathology and Laboratory Medicine [address] [place] [id number] * Archived Material Retrieval (11/11/2024 12:47 PM CDT) Archived Material The test is to be performed on tissue from case [id number]. The case report, slides, and block(s) for the cited accession were retrieved from archives. The pathologist examined the candidate slides and selected case material appropriate to the specifications of the ordered molecular analysis. Unstained sections from the FFPE block, abrasives sales representative H&E slide(s), and/or tumor-mapped smear(s) were prepared and forwarded to the Molecular Diagnostic Laboratory where the subject molecular test will be performed. Results will be reported separately. 11/29/2024 2:25 PM CDT [facility] Pathologist Signature 11/29/2024 2:25 PM CDT [facility] Fine Needle Asp 11/11/2024 1 2:47 PM CDT 11/29/2024 12:08 PM CDT us Quintin Godinez MD [facility] IP AP BIOMARKERS Final Resul t [facility] [place] [address], [place] * (ABNORMAL) Cytology Image-Guided FNA Interpretation (11/11/2024 12:47 PM CDT) Gross Description Specimens procured: 5 Diff Quik; 7 Pap Stain Slides 10 ml, cloudy slightly bloody fluid in RPMI 1 Cell Block Date/Time Placed in Formalin: 11/11/24 1:51 PM Size: 30.6 x 19.6 mm lesion Immediate assessment for specimen adequacy was made x1 by Dr. West. 11/12/2024 3:51 PM CDT [facility] Immediate Assessment Adequate cellularity, favor malignant 11/12/2024 3:51 PM CDT [facility] Major Classification MALIGNANT(A) 11/12/2024 3:51 PM CDT [facility] at 1551 CDT Diagnosis Pancreas, body, fine needle aspiration: ADENOCARCINOMA 11/12/2024 3:51 PM CDT [facility] at 1551 CDT Comment Evaluation of the cell block contributes to the above diagnosis. 11/12/2024 3:51 PM CDT [facility] AP LABS Retained/Biomark er Testing SR: 12 S, 1 CB Biomarker Testing: JOVANI CB: 50-300 (IHC/FISH only) JOVANI PAP: 1 S JOVANI DQ: No FISH DQ: No 11/12/2024 3:51 PM CDT [facility] Informational Points Some tests reported here may have been developed and performance characteristics determined by [facility] Pathology and Laboratory Medicine. These tests have not been specifically cleared or approved by the U.S. Food and Drug Administration. 11/12/2024 3:51 PM CDT [facility] AP LABS Fine Needle Asp (Pancreas) 11/11/2024 12:47 PM CDT 11/11/2024 1:13 PM CDT Comment:CA 19-9: 35,950.0 u/ ml Quintin Godinez MD LAB CYTOLOGY ORDERABLES Final Re sult [facility]S [address] [address], [place] * Endoscopy Fluoroscopy (11/11/2024 11:57 AM CDT) Narrative Systemgenerated, Documentation - 11/11/2024 11:57 AM CDT This procedure requires no interpretation from the radiologist. Quintin Godinez MD IMG NON DI ORDERABLES Final Resu lt * (ABNORMAL) Lactic Acid, Venous (11/11/2024 6:00 AM CDT) Only the most recent of2 resultswithin the time period is included. Venous Lactate 1.7(H) 0.5 - 1.6 mmol/L 11/11/2024 6:22 AM CDT [facility] Oxygen FLOW Rate/ FiO2 11/11/2024 6:22 AM CDT [facility] O2 Therapy 11/11/2024 6:22 AM CDT [facility] Blood Peripheral blood specimen / Unknown Venipuncture / Unknown 11/11/2024 6:00 AM CDT 11/11/2024 6:20 AM CDT Shawanda Harris MD LAB BLOOD ORDERABLES Fin al Result [facility] Unless otherwise noted, all lab tests performed by: Division of Pathology and Laboratory Medicine [address] [place] [phone] * XR Abdomen 1 View Portable (11/10/2024 6:20 PM CDT) Anatomical Region Laterality Modality Abdomen Digital Radiogra phy 11/10/2024 7:18 PM CDT Impressions 11/10/2024 7:18 PM CDT FINDINGS/IMPRESSION: Tip of feeding tube projects over the proximal gastric body. Contrast is noted in the colon. No free air is identified on this portable exam. No acute bony abnormality. Narrative 11/10/2024 7:18 PM CDT FULL RESULT: Examination: XR ABDOMEN 1 VW PORTABLE on 11/10/2024 6:20 PM Clinical History: Hyperbilirubinemia Indication: Tube Placement (nasogastric/gastric). Comparison: None. TECHNIQUE: XR ABDOMEN 1 VW PORTABLE Procedure Note Cathy Samuel MD - 11/10/2024 FULL RESULT: Examination: XR ABDOMEN 1 VW PORTABLE on 11/10/2024 6:20 PM Clinical History: Hyperbilirubinemia Indication: Tube Placement (nasogastric/gastric). Comparison: None. TECHNIQUE: XR ABDOMEN 1 VW PORTABLE IMPRESSION: FINDINGS/IMPRESSION: Tip of feeding tube projects over the proximal gastric body. Contrast is noted in the colon. No free air is identified on this portableexam. No acute bony abnormality. Shawanda Harris MD IMG DIAGNOSTIC IMAGING O RDERABLES Final Result * CT Abdomen Pelvis with Contrast (11/10/2024 8:54 AM CDT) Anatomical Region Laterality Modality Abdomen, Pelvis Computed Tomogra phy 11/10/2024 8:57 AM CDT Impressions 11/10/2024 9:52 AM CDT There is an 8.5 x 3.4 cm infiltrating retroperitoneal tumor that closely involves the pancreas and left adrenal. It encases the aorta, celiac axis and its branches and SMA. The mass may be of pancreatic origin. The main portal vein and SMV are occluded by the tumor and contain thrombus. There is thrombus in the left renal vein. There are cystic lesions in the pancreatic body and tail that likely represent pseudocysts. Please correlate for clinical features of pancreatitis. There is thickening of the wall of the left renal collecting system that may represent ischemia or tumor involvement. The stomach is markedly fluid distended. This could represent gastric outlet obstruction. Malignant ascites has increased. There is peripancreatic and gastrohepatic ligament adenopathy There are extensive liver metastases involving all segments. This has increased. Multiple pulmonary metastases are seen in the lung bases. ACTIONABLE ITEMS/RECOMMENDATIONS*: None. *An Actionable Finding is a finding that may be unrelated to the original reason for imaging but potentially actionable, meaning further investigation may be necessary. The Actionable Findings Vigilance Unit (AFVU) assists medical providers with responding to additional radiologic findings that are unexpected and potentially actionable. Narrative 11/10/2024 9:52 AM CDT FULL RESULT: Examination: CT ABDOMEN PELVIS W CONTRAST on 11/10/2024 8:54 AM. Clinical History: Retroperitoneal tumor. Indication: concern for bowel obstruction. Comparison: Outside study of 10/28/2024. Technique: CT ABDOMEN PELVIS W CONTRAST. FINDINGS: Lower Thorax: There are multiple pulmonary nodules suspicious for metastases. Hepatobiliary: There are multiple liver metastases involving all segments. These are stable or slightly larger. A 3.4 cm segment VIII metastasis (6:19) previously measured 3 cm. A 2.5 cm segment II metastasis (6:24) previously measured 2.3 cm. There is a 3.3 cm partly cystic lesion in the liver dome (6:17) There is thrombus in the main portal vein (6:38), left portal vein and superior mesenteric vein (6:55). There are large collaterals in the anterior abdomen as a result. There is biliary dilatation due to common bile duct obstruction by retroperitoneal mass. There is a hydropic gallbladder. Spleen: No splenomegaly or splenic mass. Pancreas: The pancreas is involved by the large retroperitoneal tumor. There is a 3.5 cm cystic lesion anterior to the pancreatic body and a 1 cm cystic lesion in the pancreatic tail that likely represent pseudocysts secondary to pancreatitis. Adrenal Glands: The left adrenal is enlarged due to invasion by the retroperitoneal tumor. Normal right adrenal. Kidneys, Ureters, Bladder: No hydronephrosis. No suspicious intrarenal lesion. There is thickening of the wall of the left renal pelvis and proximal ureter that may be due to inflammation, ischemia or tumor involvement. No bladder mass. Gastrointestinal Tract: The stomach is fluid distended. This may represent gastric outlet obstruction. No bowel obstruction or mass. Pelvic Organs: No pelvic mass. Peritoneum/Retroperitoneum: There is a 8.5 x 3.4 cm infiltrating retroperitoneal tumor that involves the pancreas and left adrenal. The mass may be of pancreatic origin. The mass extends into the retrocrural space encasing the aorta, celiac axis, SMA, splenic artery, hepatic artery, bilateral renal arteries, left renal vein. There is thrombus in the left renal vein. The SMV is occluded at the portal vein junction. Moderate volume ascites has increased. There is aneurysmal dilatation of the infrarenal abdominal aorta measuring 4.8 cm. A small amount of thrombus lines the wall of the aneurysm. Lymph Nodes: There is nichole hepatis adenopathy. There is a 1.8 cm peripancreatic node (6:42). There are 1 cm gastrohepatic ligament nodes (5:36). Musculoskeletal: No suspicious skeletal lesion. Procedure Note Sagar Putnam MD - 11/10/2024 FULL RESULT: Examination: CT ABDOMEN PELVIS W CONTRAST on 11/10/2024 8:54 AM. Clinical History: Retroperitoneal tumor. Indication: concern for bowel obstruction. Comparison: Outside study of 10/28/2024. Technique: CT ABDOMEN PELVIS W CONTRAST. FINDINGS: Lower Thorax: There are multiple pulmonary nodules suspicious formetastases. Hepatobiliary: There are multiple liver metastases involving all segments.These are stable or slightly larger. A 3.4 cm segment VIII metastasis(6:19) previously measured 3 cm. A 2.5 cm segment II metastasis (6:24)previously measured 2.3 cm. There is a 3.3 cm partly cystic lesion in theliver dome (6:17) There is thrombus in the main portal vein (6:38), left portal vein andsuperior mesenteric vein (6:55). There are large collaterals in theanterior abdomen as a result. There is biliary dilatation due to common bile duct obstruction byretroperitoneal mass. There is a hydropic gallbladder. Spleen: No splenomegaly or splenic mass. Pancreas: The pancreas is involved by the large retroperitoneal tumor.There is a 3.5 cm cystic lesion anterior to the pancreatic body and a 1 cmcystic lesion in the pancreatic tail that likely represent pseudocystssecondary to pancreatitis. Adrenal Glands: The left adrenal is enlarged due to invasion by theretroperitoneal tumor. Normal right adrenal. Kidneys, Ureters, Bladder: No hydronephrosis. No suspicious intrarenallesion. There is thickening of the wall of the left renal pelvis andproximal ureter that may be due to inflammation, ischemia or tumorinvolvement. No bladder mass. Gastrointestinal Tract: The stomach is fluid distended. This may representgastric outlet obstruction. No bowel obstruction or mass. Pelvic Organs: No pelvic mass. Peritoneum/Retroperitoneum: There is a 8.5 x 3.4 cm infiltratingretroperitoneal tumor that involves the pancreas and left adrenal. Themass may be of pancreatic origin. The mass extends into the retrocruralspace encasing the aorta, celiac axis, SMA, splenic artery, hepaticartery, bilateral renal arteries, left renal vein. There is thrombus inthe left renal vein. The SMV is occluded at the portal vein junction.Moderate volume ascites has increased. There is aneurysmal dilatation of the infrarenal abdominal aorta measuring4.8 cm. A small amount of thrombus lines the wall of the aneurysm. Lymph Nodes: There is nichole hepatis adenopathy. There is a 1.8 cmperipancreatic node (6:42). There are 1 cm gastrohepatic ligament nodes(5:36). Musculoskeletal: No suspicious skeletal lesion. IMPRESSION: There is an 8.5 x 3.4 cm infiltrating retroperitoneal tumor that closelyinvolves the pancreas and left adrenal. It encases the aorta, celiac axisand its branches and SMA. The mass may be of pancreatic origin. The mainportal vein and SMV are occluded by the tumor and contain thrombus. Thereis thrombus in the left renal vein. There are cystic lesions in the pancreatic body and tail that likelyrepresent pseudocysts. Please correlate for clinical features ofpancreatitis. There is thickening of the wall of the left renal collectingsystem that may represent ischemia or tumor involvement. The stomach is markedly fluid distended. This could represent gastricoutlet obstruction. Malignant ascites has increased. There is peripancreatic and gastrohepatic ligament adenopathy There are extensive liver metastases involving all segments. This hasincreased. Multiple pulmonary metastases are seen in the lung bases. ACTIONABLE ITEMS/RECOMMENDATIONS*: None. *An Actionable Finding is a finding that may be unrelated to the originalreason for imaging but potentially actionable, meaning furtherinvestigation may be necessary. The Actionable Findings Vigilance Unit(AFVU) assists medical providers with responding to additional radiologicfindings that are unexpected and potentially actionable. Alan Catalan MD IMG CT ORDERABLES Final Result * Lipase Level (11/10/2024 6:46 AM CDT) Only the most recent of2 resultswithin the time period is included. Lipase Level 17 13 - 60 U/L 11/10/2024 7:33 AM CDT [facility] Blood Peripheral blood specimen / Unknown Venipuncture / Unknown 11/10/2024 6:46 AM CDT 11/10/2024 6:54 AM CDT Narrative [facility] - 11/10/2024 7:33 AM CDT Reference range established based on adult population Alan Catalan MD LAB BLOOD ORDERABLES Final Resul t [facility] Unless otherwise noted, all lab tests performed by: Division of Pathology and Laboratory Medicine [address] [place] [phone] * Confirm ABORh (11/09/2024 9:47 AM CDT) ABORh Confirm A POS 11/08/2024 7:00 PM CDT [facility] - TRANSFUSION SERVICES Blood Peripheral blood specimen / Unknown Venipuncture / Unknown 11/09/2024 9:47 AM CDT 11/09/2024 9:47 AM CDT Scarlet Anne PA-C BLOOD BANK TEST ORDERABLES Alicja l Result Performing Organization Address City/[facility] Co de Phone Number [facility] - TRANSFUSION SERVICES [facility] [address] [place] [address] [phone] [place] [address] * Hepatitis C Virus Antibody (11/09/2024 9:46 AM CDT) [facility] HCVAb. Non Reactive Non Reactive 11/09/2024 2:12 PM CDT [facility] Blood Peripheral blood specimen / Unknown Venipuncture / Unknown 11/09/2024 9:46 AM CDT 11/09/2024 9:53 AM CDT Narrative [facility] - 11/09/2024 2:12 PM CDT Antibody detection in the immunocompromised and immunosuppressed population may be delayed or absent entirely. Therefore serial testing, correlation with other clinical findings, and supplemental testing (if available) should be taken into consideration when interpreting the results. us Brandi Alvarez MD LAB BLOOD ORDERABLES Final Res ult Performing Organization Address [facility] Co de Phone Number [facility] Unless otherwise noted, all lab tests performed by: Division of Pathology and Laboratory Medicine [address] [place] [id number] * Hepatitis B Total Ig Core Ab (SCREENING) (anti-HBc total Ig; HBcAb total Ig) (11/09/2024 9:46 AM CDT) [facility] HBcAb. Non Reactive Non Reactive 11/09/2024 2:11 PM CDT [facility] Blood Peripheral blood specimen / Unknown Venipuncture / Unknown 11/09/2024 9:46 AM CDT 11/09/2024 9:53 AM CDT us Brandi Alvarez MD LAB BLOOD ORDERABLES Final Res ult Performing Organization Address City/[facility] Co de Phone Number [facility] Unless otherwise noted, all lab tests performed by: Division of Pathology and Laboratory Medicine [address] [place] [phone] * aPTT (11/09/2024 9:46 AM CDT) [facility] Activated PTT 31.4 24.8 - 35.6 second(s) 11/09/2024 10:22 AM CDT [facility] Blood Peripheral blood specimen / Unknown Venipuncture / Unknown 11/09/2024 9:46 AM CDT 11/09/2024 9:53 AM CDT Brandi Alvarez MD LAB BLOOD ORDERABLES Final Res ult [facility] [address] [facility], [facility] [address] [place] [address] * AFP (11/09/2024 9:46 AM CDT) [facility] Alpha Fetoprotein (AFP) Tumor Marker 3.3 <=8.3 ng/mL 11/09/2024 2:21 PM CDT [facility] Blood Peripheral blood specimen / Unknown Venipuncture / Unknown 11/09/2024 9:46 AM CDT 11/09/2024 9:53 AM CDT Narrative [facility] - 11/09/2024 2:21 PM CDT Results greater than 45,875.00 ng/mL may not be reliable due to matrix effect with extended dilution as it exceeds the director of capital giving's recommended limit. Caution should be exercised when interpreting such values and done in conjunction with clinical context. This test is measured by electrochemiluminescence immunoassay on [employer]velisse immunoassay analyzers. Results obtained in different methods are not interchangeable. us Brandi Alvarez MD LAB BLOOD ORDERABLES Final Res ult [facility] Unless otherwise noted, all lab tests performed by: Division of Pathology and Laboratory Medicine [address] [place] [address] [place] [address] * Hepatitis B Surface Antibody (11/09/2024 9:46 AM CDT) [facility] HBsAb Non Reactive 11/09/2024 2:12 PM CDT [facility] Blood Peripheral blood specimen / Unknown Venipuncture / Unknown 11/09/2024 9:46 AM CDT 11/09/2024 9:53 AM CDT Narrative [facility] - 11/09/2024 2:12 PM CDT Vaccinated individual: Reactive Unvaccinated individual: Non-Reactive us Brandi Alvarez MD LAB BLOOD ORDERABLES Final Res ult [facility] Unless otherwise noted, all lab tests performed by: Division of Pathology and Laboratory Medicine [address] [place] [id number] * Hepatitis B Surface Ag (11/09/2024 9:46 AM CDT) Pathologist [facility] HBsAg. Non Reactive Non Reactive 11/09/2024 2:12 PM CDT [facility] Blood Peripheral blood specimen / Unknown Venipuncture / Unknown 11/09/2024 9:46 AM CDT 11/09/2024 9:53 AM CDT us Brandi Alvarez MD LAB BLOOD ORDERABLES Final Res ult Performing Organization Address City/[facility] Co de Phone Number [facility] Unless otherwise noted, all lab tests performed by: Division of Pathology and Laboratory Medicine [address] [place] [id number] * (ABNORMAL) CEA (11/09/2024 9:46 AM CDT) [facility] Carcinoembryonic Antigen 59.9(H) <=3.8 ng/mL 11/09/2024 10:36 AM CDT [facility] Blood Peripheral blood specimen / Unknown Venipuncture / Unknown 11/09/2024 9:46 AM CDT 11/09/2024 9:53 AM CDT [facility] - 11/09/2024 10:36 AM CDT Reference Ranges (age 20-69 years): Non-smoker: <= 3.8 ng/mL Smoker: <= 5.5 ng/mL This test is measured by electrochemiluminescence immunoassay on [employer]velisse immunoassay analyzers. Results obtained in different methods are not interchangeable. us Brandi Alvarez MD LAB BLOOD ORDERABLES Final Res ult [address], [facility] [address] [place] [address] * Beta 2 Microglobulin (11/09/2024 9:46 AM CDT) Beta 2 Microglobulin 2.20 0.80 - 2.30 mg/L 11/09/2024 3:50 PM CDT [facility] Blood Peripheral blood specimen / Unknown Venipuncture / Unknown 11/09/2024 9:46 AM CDT 11/09/2024 9:53 AM CDT Narrative [facility] - 11/09/2024 3:50 PM CDT This test is measured by turbidimetric methodology on The Binding Site Optilite analyzer. Results obtained in different methods are not interchangeable. us Brandi Alvarez MD LAB BLOOD ORDERABLES Final Res ult [facility] Unless otherwise noted, all lab tests performed by: Division of Pathology and Laboratory Medicine [address] [place] [id number] * Amylase Level (11/09/2024 9:46 AM CDT) Amylase Level 36 28 - 100 U/L 11/09/2024 10:22 AM CDT [facility] Blood Peripheral blood specimen / Unknown Venipuncture / Unknown 11/09/2024 9:46 AM CDT 11/09/2024 9:53 AM CDT us Brandi Alvarez MD LAB BLOOD ORDERABLES Final Res ult [address], [facility] [address] [place] [address] * EKG, 12-Lead (Scheduled) (11/09/2024) us Brandi Alvarez MD ECG ORDERABLES Final Result DONALD IECG * CT Chest with Contrast (11/06/2024 7:24 AM CDT) Anatomical Region Laterality Modality Chest Computed Tomogra phy 11/08/2024 7:38 AM CDT Impressions 11/08/2024 8:13 AM CDT 1. Innumerable bilateral solid and cavitary nodules most consistent with metastatic disease. 2. Please see 10/28/[address] abdomen/pelvis for description of extensive abdominal findings. ACTIONABLE ITEMS/RECOMMENDATIONS*: None. *An Actionable Finding is a finding that may be unrelated to the original reason for imaging but potentially actionable, meaning further investigation may be necessary. The Actionable Findings Vigilance Unit (AFVU) assists medical providers with responding to additional radiologic findings that are unexpected and potentially actionable. Narrative 11/08/2024 8:13 AM CDT FULL RESULT: Examination: CT CHEST W CONTRAST on 11/06/2024 7:24 AM. Clinical History: Multiple nodules of lung Indication: Lung cancer screening follow-up of prior abnormal screen, innumerable lung nodule Comparison: None Technique: CT of the chest is performed with intravenous contrast FINDINGS: Lungs/Airways/Pleura: 1. No pleural effusion. 2. Mild biapical scarring. Central airways unremarkable. 3. Innumerable bilateral pulmonary nodules, numerous of which have central cavitation. There are a few measured series 302 for future comparison including 8 mm image 37, 9 mm image 63, 10 mm image 72, 14 mm image 86. Neck/Mediastinum/Nodes/Heart: 1. Partially visualized lower neck with no acute findings. 2. No pericardial effusion. Mild coronary calcifications. Mild atherosclerotic narrowing left subclavian artery. 3. Partially calcified lymph nodes. No adenopathy by size criteria. Upper Abdomen: 1. Limited upper abdomen. Please see 10/28/[address] abdomen for description of findings including retroperitoneal mass, innumerable hepatic hypodensities, free fluid, and cystic lesion anterior to the pancreas. Bones/Soft Tissues: 1. Mild degenerative changes spine. Procedure Note Ag Herr MD - 11/08/2024 FULL RESULT: Examination: CT CHEST W CONTRAST on 11/06/2024 7:24 AM. Clinical History: Multiple nodules of lung Indication: Lung cancer screening follow-up of prior abnormal screen,innumerable lung nodule Comparison: None Technique: CT of the chest is performed with intravenous contrast FINDINGS: Lungs/Airways/Pleura: 1. No pleural effusion. 2. Mild biapical scarring. Central airways unremarkable. 3. Innumerable bilateral pulmonary nodules, numerous of which havecentral cavitation. There are a few measured series 302 for futurecomparison including 8 mm image 37, 9 mm image 63, 10 mm image 72, 14 mmimage 86. Neck/Mediastinum/Nodes/Heart: 1. Partially visualized lower neck with no acute findings. 2. No pericardial effusion. Mild coronary calcifications. Mildatherosclerotic narrowing left subclavian artery. 3. Partially calcified lymph nodes. No adenopathy by size criteria. Upper Abdomen: 1. Limited upper abdomen. Please see 10/28/[address] abdomen fordescription of findings including retroperitoneal mass, innumerablehepatic hypodensities, free fluid, and cystic lesion anterior to thepancreas. Bones/Soft Tissues: 1. Mild degenerative changes spine. IMPRESSION: 1. Innumerable bilateral solid and cavitary nodules most consistent withmetastatic disease. 2. Please see 10/28/[address] abdomen/pelvis for description ofextensive abdominal findings. ACTIONABLE ITEMS/RECOMMENDATIONS*: None. *An Actionable Finding is a finding that may be unrelated to the originalreason for imaging but potentially actionable, meaning furtherinvestigation may be necessary. The Actionable Findings Vigilance Unit(AFVU) assists medical providers with responding to additional radiologicfindings that are unexpected and potentially actionable. Bernardo Muñiz APRN IMG CT ORDERABLES Final Re sult * (ABNORMAL) POC Creatinine (11/06/2024 6:53 AM CDT) POC Creatinine 0.5(L) 0.6 - 1.3 mg/dL 11/06/2024 6:55 AM CDT [facility] Comment:Medications, especia lly hydroxyurea or supplements, such as ascorbate, can interfere with test results causing a falsely and significantly higher result than expected. If a problem is suspected with a patient's result, a sample should be sent to the laboratory for confirmatory testing. POC eGFR 121 >=60 mL/min/1.7 3 sq. m 11/06/2024 6:55 AM CDT [facility] Comment: The eGFRcr is calculated with the 2020 CKD-EPI creatinine equation using creatinine, patient's age, and sex for adults 18 years of age and older. Other factors, especially muscle mass, may affect accuracy and need to be considered. According to the Kidney Disease: Improving Global Outcomes (KDIGO) CKD Work Group 2012 Clinical Practice Guideline, chronic kidney disease (CKD) is defined as the abnormalities of kidney structure or function, present for more than 3 months, with implications for health. CKD should be classified by cause, GFR category, and albuminuria category. KDIGO guidelines provide the following GFR categories. Stage / Description / GFR mL/min/1.73 m2: G1* / Normal or high / >= 90 G2* / Mildly decreased / 60-89 G3a / Mildly to moderately decreased / 45-59 G3b / Moderately to severely decreased / 30-44 G4 / Severely decreased / 15-29 G5 / Kidney failure / <15 *In the absence of evidence of kidney damage, neither G1 nor G2 fulfill criteria for CKD. Blood 11/06/2024 6:53 AM CDT 11/06/2024 6:55 AM CDT Narrative [facility] - 11/06/2024 6:55 AM CDT Method description: The i-STAT is an analyzer used for in vitro quantification of various analytes in whole blood. The device uses a single disposable cartridge which contains microfabricated sensors, a calibration solution, fluidics system, and a waste chamber. Each test cartridge contains chemically sensitive biosensors on a silicon chip that are configured to perform specific tests. The microfabricated sensors measure analyte concentration by an electrochemical assay. us Bernardo Muñiz DISH UP PERSON POCT ORDERABLES - DEVICE F inal Result [facility] Unless otherwise noted, all lab tests performed by: Division of Pathology and Laboratory Medicine [address] [place] [id number] * OSI CT Abdomen and Pelvis (10/28/2024 8:08 PM CDT) Narrative Systemgenerated, Documentation - 11/03/2024 8:08 PM CDT Study acquired at another institution. For comparison only. No MD Denis originated interpretation requested or available. us Brandi Alvarez MD IMG OUTSIDE IMAGE ORDERABLES F inal Result after 01/10/2024 Insurance Advance Directives * Full Code (Latest Code Status on File) Date Activated Date Inactivated Comments 12/31/2024 12:50 PM Update based on Advanced Directive Documentation * Full Code Date Activated Date Inactivated Comments 11/10/2024 10:19 AM 11/16/2024 11:39 AM Care Teams Transfer Engineer Relationship Specialty Start Date End Date Marion Mireles MD [address] [place] [address] [email or web address] PCP - External Referring Gastroenterology 10/28/24 Kim Mohan MD [address] [place] [address] [address] [place] [address] PCP - External Primary Care Provider Family Practice 10/29/24 Bradni Alvarez MD [address] [place] [id number] [email or web address] PCP - General Internal Medicine 09/18/24 Jacquelin Ruiz RN [address] [place] [address] [email or web address] Health Services Director Nursing 11/16/24 12/27/24 Linda Castaneda MD [address] [place] [id number] [email or web address] [email or web address] Physician Gastrointestinal Medical Oncology 11/26/24 Wesley Bragg MD [address] [place] [phone] [email or web address] Consulting Physician Pain Management 11/26/24 Alissa Mtz, RD [address] [place] [id number] [email or web address] Clinical Dietitian Nutrition 12/03/24
[2025-01-09] MEDS ORDERED: LORazepam 2 MG/ML VIAL ONE (06:04)
[2025-01-09] MEDS ORDERED: MIDAZOLAM HCL 5 ML ONE (06:10)
[2025-01-09] MEDS ORDERED: NA CHLORIDE 0.9% 1,000 ML ONE (06:18)
[2025-01-09] MEDS ORDERED: NOREPINEPHRINE BITARTRATE/D5W 4 MG/250 ML BAG IV ONE ×4 (06:18→09:17)
[2025-01-09] MEDS ORDERED: ONDANSETRON 4 MG/2 ML VIAL ONE (06:39)
[2025-01-09] MEDS ORDERED: D5 0.9 NS 1,000 ML IV ONE (06:40)
[2025-01-09] MEDS ORDERED: CEFEPIME 2 GM VIAL ONE (06:40)
[2025-01-09] MEDS ORDERED: NA CHLORIDE 0.9% 100 ML ONE (06:40)
[2025-01-09] MEDS ORDERED: D50W 25 GM/50 ML SYRINGE IV ONE (06:41)
[2025-01-09 07:01] LABS: PT Prothrombin Time 85.5 SECONDS (10-13.0); PTT, Activated Partial Thromb 45.2 SECONDS (27.2-37.4)
[2025-01-09 07:09] LABS: Absolute Lymphocytes (CBC) 1.7 K/uL (0.7-4.9); Absolute Monocytes 1.2 K/uL (0.1-1.3); Absolute Neutrophil 43.2 K/uL (1.8-8.0); Basophils % 0.1 % (0-1.3); Hematocrit 20.2 % (39.6-49.0); Lymphocytes % 3.8 % (15.3-44.8); MCH 35.2 pg (27.0-35.0); MCHC 29.2 g/dL (32.0-36.0); MCV 120.6 fL (80-100); MPV 8.3 fL (7.6-11.3); Monocytes % 2.6 % (3.3-12.3); Neutrophils % 93.5 % (41.7-73.7); Nucleated RBC Absolute Count 1.2 (0-0); Nucleated Red Blood Cells % 2.5 % (0-0); Platelets 231 thou/uL (152-406); RBC Red Blood Cell Count 1.67 M/uL (4.33-5.43); Red Cell Distribution Width 28.7 % (12.1-15.2)
[2025-01-09 07:11] LABS: Albumin 1.7 g/dL (3.4-5.0); Albumin/Globulin Ratio 0.6 (1.1-1.8); Bilirubin Total 2.2 mg/dL (0.2-1.0); Globulin 2.8 g/dL (2.3-3.5); Protein, Total 4.5 g/dL (6.4-8.2)
[2025-01-09 07:12] LABS: Hemoglobin 5.9 g/dL (13.6-17.9)
[2025-01-09 07:13] LABS: Protime INR 8.29
[2025-01-09] MEDS ORDERED: NA CHLORIDE 0.9% 250 ML ONE (07:20)
[2025-01-09] MEDS ORDERED: ALBUMIN HUMAN 25% 100 ML IV ONE (07:24)
[2025-01-09 07:26] LABS: Troponin High Sensitivity 17.4 pg/mL (<58.9)
--- NOTE | 2025-01-09 07:38 | EDPHYS ---
Physician Documentation [facility] Name: Chris Monaco Jr Age: 54 yrs Sex: Male : 1970 Arrival Date: 01/09/2025 Time: 05:54 Bed 4 Private MD: ED Physician Delmar Weir HPI: 01/09 06:15 This 54 yrs old Male presents to ER via Unassigned with complaints of sp4 Weakness. 06:47 54 -year-old male, history of stage IV pancreatic cancer presents from home with acute sp4 onset of lethargy, pallor, respiratory distress. Patient has history of cancer treatment at [facility]. 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 06:52 Last chemotherapy, 01/01/2025. sp4 Historical: - Allergies: 06:35 No Known Allergies; jb4 - PMHx: 06:35 back problems; Pancreatic cancer metasized to lungs (back problems); jb4 - PSHx: 06:35 Unable to Obtain; jb4 - Immunization history:: Adult Immunizations unknown. - Infectious Disease History:: Denies. - Social history:: Smoking status: unknown. - Family history:: not pertinent. ROS: 06:47 Constitutional: Not available secondary to unresponsive condition sp4 06:47 All other systems are negative, Exam: 06:53 Constitutional: Ill-appearing toxic appearing male, generalized pallor, agitation on sp4 arrival, right chest wall port, chemotherapy subcutaneous port Head/Face: Normocephalic, atraumatic. Eyes: Pupils equal round and reactive to light, extra-ocular motions intact. ENT: Nares patent. No nasal discharge, no septal abnormalities noted. Tympanic membranes are normal and external auditory canals are clear. Oropharynx with dry mucous membrane Neck: Trachea midline, no thyromegaly or masses palpated, and no cervical lymphadenopathy. Supple, full range of motion without nuchal rigidity, or vertebral point tenderness. Chest/axilla: Normal chest wall appearance and motion. Nontender with no deformity. No lesions are appreciated. Right chest wall chemotherapy port Cardiovascular: Regular rate and rhythm with a normal S1 and S2. No gallops, murmurs, or rubs. Normal PMI, no JVD. No pulse deficits. Respiratory: Lungs have equal breath sounds bilaterally, clear to auscultation and percussion. No rales, rhonchi or wheezes noted. No increased work of breathing, no retractions or nasal flaring. Abdomen/GI: Soft, with normal bowel sounds. No distension or tympany. No guarding or rebound. No evidence of tenderness throughout. Back: No spinal tenderness. No costovertebral tenderness. Male : Normal genitalia with no discharge or lesions. Skin: Warm, dry with normal turgor. Normal color with no rashes, generalized pallor MS/ Extremity: Pulses equal, no cyanosis. Neurovascular intact. Full, normal range of motion. Neuro: Patient is obtunded, agitated, nonverbal on arrival, not able to state his name. Moves all extremities, no signs of lateralizing deficits grossly speak 06:58 ECG was reviewed by the Attending Physician. EKG 0 648 normal sinus rhythm rate 93 sp4 muscle tremor artifact otherwise unremarkable. Vital Signs: 06:00 BP 135 / 109; Pulse 88; Pulse Ox 100% on bipap; km10 06:08 BP 56 / 33; Pulse 89; Resp 16; Pulse Ox 77% on R/A; Weight 85 kg (M); jb4 06:15 BP 52 / 35; Pulse 84; Pulse Ox 96% on bipap; km10 06:20 BP 62 / 38; Pulse 80; Pulse Ox 100% on bipap; km10 06:30 BP 142 / 77; Pulse 91; Pulse Ox 100% on bipap; km10 06:31 BP 104 / 60; Pulse 89; Resp 15; Pulse Ox 100% on BiPAP; jb4 06:40 BP 141 / 64; Pulse 92; Pulse Ox 100% on bipap; km10 07:00 BP 127 / 49; Pulse 99; Resp 24; Temp 91.4(Ca); Pulse Ox 97% on bipap; km10 07:15 BP 136 / 58; Pulse 102; Resp 17; Temp 91.6; Pulse Ox 98% ; bp 07:30 BP 132 / 52; Pulse 103; Resp 16; Temp 91.9; Pulse Ox 98% ; bp 07:45 BP 150 / 100; Pulse 103; Resp 16; Temp 92.2; Pulse Ox 98% ; bp 08:00 BP 133 / 60; Pulse 99; Resp 17; Temp 92.5; Pulse Ox 100% ; bp 08:15 BP 118 / 53; Pulse 101; Resp 18; Temp 92.7; Pulse Ox 99% ; bp 08:30 BP 115 / 68; Pulse 102; Resp 17; Temp 93.2; Pulse Ox 98% ; bp 08:45 BP 119 / 73; Pulse 102; Resp 22; Temp 93.3; Pulse Ox 98% ; bp 09:00 BP 114 / 70; Pulse 105; Resp 16; Temp 93.6; Pulse Ox 97% ; bp 09:15 BP 114 / 69; Pulse 104; Resp 18; Temp 94; Pulse Ox 96% ; bp 09:30 BP 127 / 73; Pulse 106; Resp 16; Temp 94.3; Pulse Ox 95% ; bp 09:45 BP 101 / 62; Pulse 102; Resp 17; Temp 94.4; Pulse Ox 97% ; bp 06:08 placed on 15L NRB, O2 now 100% jb4 Brain Coma Score: 06:53 Eye Response: none(1). Motor Response: withdraws from pain(4). Verbal Response: sp4 incomprehensible(2). Total: 7. Procedures: 06:57 Central Line: the site was prepped with Betadine, in sterile fashion, a triple lumen sp4 catheter was inserted, in the right femoral vein, in 1 attempts. placement was verified, by blood return, Ultrasound-guided central line, the site was dressed with 4X4s, Tegaderm, using sterile technique, the patient tolerated the procedure, well, Patient arrived with hypotension, without proper IV access. Emergent right femoral triple-lumen central line placed with ultrasound guidance. MDM: 06:45 Medical Screening Exam initiated sp4 06:58 Data reviewed: vital signs, nurses notes, EMS record, old medical records, lab test sp4 result(s), EKG, radiologic studies, CT scan, plain films. 01/09 06:16 Order name: Blood Culture Adult (2) sp4 01/09 06:16 Order name: CBC with Diff sp4 01/09 06:16 Order name: CMP; Complete Time: 07:29 sp4 01/09 06:16 Order name: Lactate w/ 2H reflex if indic. sp4 01/09 06:16 Order name: Protime (+inr); Complete Time: 07:17 sp4 01/09 06:16 Order name: Ptt, Activated; Complete Time: 07:17 sp4 01/09 06:16 Order name: ABG [facility] 01/09 06:17 Order name: Troponin High Sensitivity; Complete Time: 07:29 sp4 01/09 06:17 Order name: BNP; Complete Time: 07:29 sp 01/09 06:17 Order name: Type And Screen [facility] 01/09 06:18 Order name: TSH [facility] 01/09 06:18 Order name: T4 Free [facility] 01/09 06:40 Order name: UA W/ Microscopic; Complete Time: 07:44 sp 01/09 06:40 Order name: CRP; Complete Time: 07:44 [facility] 01/09 06:51 Order name: Glucose, Ancillary Testing; Complete Time: 06:58 EDTN 01/09 07:13 Order name: LAB Add On 01/09 07:14 Order name: Manual Differential EDTN 01/09 07:17 Order name: Packed RBC Leukored EDTN 01/09 07:39 Order name: Add On-Lab 01/09 08:00 Order name: Fresh Frozen Plasma [facility] 01/09 08:09 Order name: Ghost Lactate-NO COLLECT Timer [facility] 01/09 08:23 Order name: ABO/RH no charge EDTN 01/09 06:16 Order name: Chest Single View XRAY [facility] 01/09 06:19 Order name: BIPAP [facility] 01/09 06:16 Order name: Accucheck; Complete Time: 06:53 [facility] 01/09 06:16 Order name: Cardiac monitoring; Complete Time: 06:33 [facility] 01/09 06:16 Order name: Cath; Complete Time: 06:33 [facility] 01/09 06:16 Order name: EKG - Nurse/Tech; Complete Time: 06:53 [facility] 01/09 06:16 Order name: IV Saline Lock - Large Bore; Complete Time: 08:46 sp 01/09 06:16 Order name: Labs collected and sent; Complete Time: 06:33 [facility] 01/09 06:16 Order name: O2 Per Protocol; Complete Time: 06:33 [facility] 01/09 06:16 Order name: O2 Sat Monitoring; Complete Time: 06:33 4 01/09 06:16 Order name: Vital Signs; Complete Time: 06:33 sp4 EC:48 Rate is 93 beats/min. Rhythm is regular, Normal Sinus Rhythm. QRS [place] is Normal. [place] sp4 interval is normal. QRS interval is normal. QT interval is normal. No Q waves. T waves are Normal. No ST changes noted. Clinical impression: No evidence of ischemia. Interpreted by me. Reviewed by me. Administered Medications: 06:05 Drug: LORazepam IM 2 mg IM once Route: IM; Site: left vastus lateralis; 8 06:52 Follow up: Response: No adverse reaction [facility] 06:10 Drug: NS 0.9% IV 1000 ml IV at 1 bolus Per protocol; to be given as a bolus over 60 jb4 minutes {Note: right groin central line.} Route: IV; Rate: 1 bolus; Site: Other; 06:50 Follow up: Response: No adverse reaction; IV Status: Completed infusion [facility] 06:25 Drug: Norepinephrine IV 0.1 mcg/kg/min IV at calculated rate See Administration jb4 Instructions; (Standard concentration 4 mg / 250 mL D5W); Recommended max rate 3 mcg/kg/min; Titrate 0.05 mcg/kg/min as often as every 5 minutes to achieve goal (see titration policy); Goal parameter MAP greater than 65 mmHg. {Note: Administered Via right groin central line. Started at 2mcg/kg/min per physicians instructions. .} Route: IV; Rate: calculated rate; Site: Other; 06:35 Follow up: Rate change 1.5 mcg/kg/min [facility] 06:45 Follow up: Rate change 1.2 mcg/kg/min [facility] 06:50 Follow up: Rate change 1 mcg/kg/min [facility] 10:12 Follow up: IV Status: Infusion continued upon transfer bp 06:33 Drug: Midazolam IVP or IV 5 mg IVP once {Note: administered by provider .} Route: IVP; [facility] Site: right femoral; 06:52 Follow up: Response: Blood pressure is lowered [facility] 06:45 Drug: Ondansetron IVP 4 mg IVP once; over 2 minutes Route: IVP; Site: right femoral; [facility] 06:52 Follow up: Response: No adverse reaction [facility] 06:45 Drug: D5-NS IV 1000 ml IV at 125 ml/hr continuous Route: IV; Rate: 125 ml/hr; Site: [facility] right femoral; 10:12 Follow up: IV Status: Completed infusion bp 06:45 Drug: D50W IVP 50 ml IVP once; (1 amp) {Note: given via right groin central line.} jb4 Route: IVP; Site: Other; 10:12 Follow up: Response: No adverse reaction bp 06:48 Drug: Cefepime IVPB 2 grams IVPB at 200 ml/hr once over 30 mins; (mix in NS 100 mL) km10 Route: IVPB; Rate: 200 ml/hr; Infused Over: 30 mins; Site: right femoral; 10:12 Follow up: IV Status: Completed infusion bp 07:41 Drug: Albumin IVPB 25 grams 100 ml IVPB once; (Note: Albumin 25% concentration) Volume: ld1 100 ml; Route: IVPB; Site: right femoral; 10:13 Follow up: IV Status: Completed infusion bp 07:41 Drug: Albumin IVPB 25 grams 100 ml IVPB once; (Note: Albumin 25% concentration) Volume: ld1 100 ml; Route: IVPB; Site: right femoral; 10:12 Follow up: IV Status: Completed infusion bp 07:51 Drug: Phytonadione Sub-Q 10 mg Sub-Q once Route: Sub-Q; Site: right upper arm; ld1 07:55 Follow up: Response: No adverse reaction ld1 08:46 Drug: vancoMYCIN IVPB 2 grams IVPB at calculated rate once Route: IVPB; Rate: bp calculated rate; Site: right femoral; 10:13 Follow up: IV Status: Infusion continued upon transfer bp 08:46 Drug: D5W IV 1000 ml, Sodium Bicarbonate IVP 150 mEq IV at 125 ml/hr continuous Route: bp IV; Rate: 125 ml/hr; Site: right femoral; 10:12 Follow up: IV Status: Infusion continued upon transfer bp Disposition Summary: 01/09/25 07:37 Transfer Ordered Notes: Transfer Location: Other Acute Care Facility sp4 Reason: Higher level of care sp4 Condition: Stable sp4 Problem: new sp4 Symptoms: have improved sp4 Accepting Physician: MD Denis Attending (01/09/25 10:13) bp Diagnosis - Other specified anemias sp4 - Severe sepsis with septic shock, acute symptomatic anemia, coagulopathy, acute sp4 respiratory failure with hypoxemia, shock liver, acute liver failure Forms: - Medication Reconciliation Form sp4 - SBAR form sp4 Critical care time excluding procedures: 06:57 Critical care time: Bedside Care: 36 minutes, Consultation: 12 minutes, Family sp4 Intervention: 12 minutes. Total time: 60 minutes Signatures: Dispatcher [employer] EDMS Syed Denis MD MD cha Bryson, James, RN RN jb4 Quintin Nuno, RN RN bp Zoie Greenberg, RN RN ld1 Delmar Weir MD MD sp4 Pietro Schneider, RN RN bm8 Jesusita Bravo RN RN km10 Corrections: (The following items were deleted from the chart) 06:16 06:16 BLOOD CULTURE*+BA.LAB.BRZ ordered. EDMS EDMS 06:16 06:16 CBC+H.LAB.BRZ ordered. EDMS EDMS 06:16 06:16 COMPREHENSIVE METABOLIC PANEL+C.LAB.BRZ ordered. EDMS EDMS 06:16 06:16 LACTATE+C.LAB.BRZ ordered. EDMS EDMS 06:16 06:16 PROTIME (+INR)+COAG.LAB.BRZ ordered. EDMS EDMS 06:16 06:16 PTT, ACTIVATED+COAG.LAB.BRZ ordered. EDMS EDMS 06:16 06:16 Chest Single View+RAD.RAD.BRZ ordered. EDMS EDMS 06:16 06:16 Arterial Blood Gas+RC.LAB.BRZ ordered. EDMS EDMS 06:17 06:17 BiPap ([employer] Only)+RC.RAD.BRZ ordered. EDMS EDMS 06:17 06:17 Troponin High Sensitivity+C.LAB.BRZ ordered. EDMS EDMS 06:17 06:17 PROBNP+C.LAB.BRZ ordered. EDMS EDMS 06:17 06:17 TYPE AND SCREEN+BB.LAB.BRZ ordered. EDMS EDMS 06:40 06:40 UA W/ Microscopic+U.LAB.BRZ ordered. EDMS EDMS 08:10 07:17 PACKED RBC LEUKORED+BB.LAB.BRZ ordered. EDMS EDMS 08:10 07:19 ABO/RH typing ordered. EDMS EDMS 08:10 07:19 Antibody Screen ordered. EDMS EDMS 10:13 07:37 MD Denis Attending MD [email or web address] bp
--- NOTE | 2025-01-09 07:38 | ER ---
Nurse's Notes [facility] Name: Chris Monaco Jr Age: 54 yrs Sex: Male : 1970 Arrival Date: 01/09/2025 Time: 05:54 Bed 4 Private MD: Diagnosis: Other specified anemias;Severe sepsis with septic shock, acute symptomatic anemia, coagulopathy, acute respiratory failure with hypoxemia, shock liver, acute liver failure Presentation: 01/09 06:08 Chief complaint: EMS states: Pt family called reporting pt was having weakness. Had jb4 last round of Chemo 2 weeks ago, has not been eating right since. Now he is lethargic, hypoxic, and hypotensive on EMS arrival. 06:08 Method Of Arrival: EMS jb4 06:08 Coronavirus screen: At this time, the client does not indicate any symptoms associated jb4 with coronavirus-19. Ebola Screen: No symptoms or risks identified at this time. Initial Sepsis Screen: Does the patient meet any 2 criteria? Systolic BP < 90 mmHg. No. Patient's initial sepsis screen is negative. Does the patient have a suspected source of infection? No. Patient's initial sepsis screen is negative. Risk Assessment: Do you want to hurt yourself or someone else? Patient reports no desire to harm self or others. Onset of symptoms was January 09, 2025. Transition of care: patient was not received from another setting of care. 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 - Infectious Disease History:: Denies. - Social history:: Smoking status: unknown. - Family history:: not pertinent. Screenin:00 [facility] ED Fall Risk Assessment (Adult) History of falling in the last 3 months, bp including since admission No falls in past 3 months (0 pts) Confusion or Disorientation Yes (5 pts) Intoxicated or Sedated Yes (3 pts) Impaired Gait Yes (1 pt) Mobility Assist Device Used No (0 pt) Altered Elimination Yes (1 pt) Score/Fall Risk Level 3 or more points = High Risk Oriented to surroundings. Abuse screen: Denies threats or abuse. Denies injuries from another. Nutritional screening: No deficits noted. Tuberculosis screening: No symptoms or risk factors identified. Assessment: 05:58 General: Appears ill, cachectic, Behavior is restless, unresponsive. Neuro: Level of km10 Consciousness is listless, unresponsive, Oriented to none Weakness. Respiratory: Airway is patent Respiratory effort is labored, with retractions, the patient has severe shortness of breath. 05:58 Cardiovascular: Capillary refill is > 3 seconds. Derm: Skin is pale, Skin temperature km10 is cool. 09:01 Reassessment: REPORT TO ASIM VARELA AT [facility]. bp 10:00 Reassessment: EMS AT B/S FOR TRANSPORT. bp Vital Signs: 06:00 BP 135 / 109; Pulse 88; Pulse Ox 100% on bipap; km10 06:08 BP 56 / 33; Pulse 89; Resp 16; Pulse Ox 77% on R/A; Weight 85 kg (M); jb4 06:15 BP 52 / 35; Pulse 84; Pulse Ox 96% on bipap; km10 06:20 BP 62 / 38; Pulse 80; Pulse Ox 100% on bipap; km10 06:30 BP 142 / 77; Pulse 91; Pulse Ox 100% on bipap; km10 06:31 BP 104 / 60; Pulse 89; Resp 15; Pulse Ox 100% on BiPAP; jb4 06:40 BP 141 / 64; Pulse 92; Pulse Ox 100% on bipap; km10 07:00 BP 127 / 49; Pulse 99; Resp 24; Temp 91.4(Ca); Pulse Ox 97% on bipap; km10 07:15 BP 136 / 58; Pulse 102; Resp 17; Temp 91.6; Pulse Ox 98% ; bp 07:30 BP 132 / 52; Pulse 103; Resp 16; Temp 91.9; Pulse Ox 98% ; bp 07:45 BP 150 / 100; Pulse 103; Resp 16; Temp 92.2; Pulse Ox 98% ; bp 08:00 BP 133 / 60; Pulse 99; Resp 17; Temp 92.5; Pulse Ox 100% ; bp 08:15 BP 118 / 53; Pulse 101; Resp 18; Temp 92.7; Pulse Ox 99% ; bp 08:30 BP 115 / 68; Pulse 102; Resp 17; Temp 93.2; Pulse Ox 98% ; bp 08:45 BP 119 / 73; Pulse 102; Resp 22; Temp 93.3; Pulse Ox 98% ; bp 09:00 BP 114 / 70; Pulse 105; Resp 16; Temp 93.6; Pulse Ox 97% ; bp 09:15 BP 114 / 69; Pulse 104; Resp 18; Temp 94; Pulse Ox 96% ; bp 09:30 BP 127 / 73; Pulse 106; Resp 16; Temp 94.3; Pulse Ox 95% ; bp 09:45 BP 101 / 62; Pulse 102; Resp 17; Temp 94.4; Pulse Ox 97% ; bp 06:08 placed on 15L NRB, O2 now 100% jb4 [place] Coma Score: 06:53 Eye Response: none(1). Motor Response: withdraws from pain(4). Verbal Response: sp4 incomprehensible(2). Total: 7. ED Course: 05:55 Patient arrived in ED. jj6 05:55 Client placed on continuous cardiac and pulse oximetry monitoring. NIBP monitoring km10 applied. library monitor on. 06:15 Delmar Weir MD is Attending Physician. sp4 06:20 Green cath inserted, using sterile technique, 16 Fr., by nv, balloon inflated, to km10 gravity drainage, temperature green. 06:20 Assisted provider with central line placement. Set up central line tray. Triple lumen km10 line placed in right femoral. Line placed by Delmar Weir MD Placement verified by CXR, blood return, Dressed with Tegaderm, Blood was collected. Patient tolerated well. Time-out/Briefing performed prior to start of procedure? Yes. Was handwashing/sanitizing done immediately prior to procedure? Yes. Was patient positioned to in a way to prevent air embolism? Yes. Was procedure site sterilized? Yes, with chlorhexidine. Was the site allowed to dry? Yes. During the procedure, did the Practitioner(s) maintain a sterile field? Yes. Was blood aspirated from each lumen? Yes. 06:27 Jesusita Bravo, RN is Primary Nurse. km10 06:28 O2 via bipap. km10 06:33 Ptt, Activated Sent. km10 06:33 Protime (+inr) Sent. km10 06:33 CMP Sent. km10 06:33 Lactate w/ 2H reflex if indic. Sent. km10 06:33 CBC with Diff Sent. km10 06:33 Blood Culture Adult (2) Sent. km10 06:35 Triage completed. jb4 06:36 Chest Single View XRAY In Process Unspecified. EDMS 06:45 Thermoregulation: warm blanket given to patient. Amrita blanket applied. km10 07:00 Patient has correct armband on for positive identification. bp 07:14 Report given to Quintin RN and Zoie RN. km10 07:[address] Denis called MD Denis for transfer talked to [place]. 0739 Dr. justice Starkey accepted pt. 0739 admin [phone] G7 bed 17. no fax needed. called [facility] for transfer talked to Omid. 10:11 Patient transferred, IV remains in place. bp Administered Medications: 06:05 Drug: LORazepam IM 2 mg IM once Route: IM; Site: left vastus lateralis; [facility] 06:52 Follow up: Response: No adverse reaction km10 06:10 Drug: NS 0.9% IV 1000 ml IV at 1 bolus Per protocol; to be given as a bolus over 60 jb4 minutes {Note: right groin central line.} Route: IV; Rate: 1 bolus; Site: Other; 06:50 Follow up: Response: No adverse reaction; IV Status: Completed infusion km10 06:25 Drug: Norepinephrine IV 0.1 mcg/kg/min IV at calculated rate See Administration jb4 Instructions; (Standard concentration 4 mg / 250 mL D5W); Recommended max rate 3 mcg/kg/min; Titrate 0.05 mcg/kg/min as often as every 5 minutes to achieve goal (see titration policy); Goal parameter MAP greater than 65 mmHg. {Note: Administered Via right groin central line. Started at 2mcg/kg/min per physicians instructions. .} Route: IV; Rate: calculated rate; Site: Other; 06:35 Follow up: Rate change 1.5 mcg/kg/min km10 06:45 Follow up: Rate change 1.2 mcg/kg/min km10 06:50 Follow up: Rate change 1 mcg/kg/min km10 10:12 Follow up: IV Status: Infusion continued upon transfer bp 06:33 Drug: Midazolam IVP or IV 5 mg IVP once {Note: administered by provider .} Route: IVP; [facility] Site: right femoral; 06:52 Follow up: Response: Blood pressure is lowered 06:45 Drug: Ondansetron IVP 4 mg IVP once; over 2 minutes Route: IVP; Site: right femoral; [facility] 06:52 Follow up: Response: No adverse reaction [facility] 06:45 Drug: D5-NS IV 1000 ml IV at 125 ml/hr continuous Route: IV; Rate: 125 ml/hr; Site: [facility] right femoral; 10:12 Follow up: IV Status: Completed infusion bp 06:45 Drug: D50W IVP 50 ml IVP once; (1 amp) {Note: given via right groin central line.} jb4 Route: IVP; Site: Other; 10:12 Follow up: Response: No adverse reaction bp 06:48 Drug: Cefepime IVPB 2 grams IVPB at 200 ml/hr once over 30 mins; (mix in NS 100 mL) [facility] Route: IVPB; Rate: 200 ml/hr; Infused Over: 30 mins; Site: right femoral; 10:12 Follow up: IV Status: Completed infusion bp 07:41 Drug: Albumin IVPB 25 grams 100 ml IVPB once; (Note: Albumin 25% concentration) Volume: ld1 100 ml; Route: IVPB; Site: right femoral; 10:13 Follow up: IV Status: Completed infusion bp 07:41 Drug: Albumin IVPB 25 grams 100 ml IVPB once; (Note: Albumin 25% concentration) Volume: ld1 100 ml; Route: IVPB; Site: right femoral; 10:12 Follow up: IV Status: Completed infusion bp 07:51 Drug: Phytonadione Sub-Q 10 mg Sub-Q once Route: Sub-Q; Site: right upper arm; ld1 07:55 Follow up: Response: No adverse reaction ld1 08:46 Drug: vancoMYCIN IVPB 2 grams IVPB at calculated rate once Route: IVPB; Rate: bp calculated rate; Site: right femoral; 10:13 Follow up: IV Status: Infusion continued upon transfer bp 08:46 Drug: D5W IV 1000 ml, Sodium Bicarbonate IVP 150 mEq IV at 125 ml/hr continuous Route: bp IV; Rate: 125 ml/hr; Site: right femoral; 10:12 Follow up: IV Status: Infusion continued upon transfer bp Outcome: 07:37 ER care complete, transfer ordered by MD. newman 10:11 Transferred by ground EMS to [facility], Transfer form completed. bp 10:11 Condition: stable 10:11 Instructed on the need for transfer, 10:13 Patient left the ED. bp Signatures: Dispatcher [employer] EDMS Francisca Patel James, RN RN jb4 Quintin Nuno RN RN bp Zoie Greenberg RN RN ld1 Opal Smith6 Delmar Weir MD MD sp4 Pietro Schneider RN RN bm8 Jesusita Bravo RN RN km10 Corrections: (The following items were deleted from the chart) 06:36 06:35 Rate change 1.5 mcg/kg/min km10 km10 06:51 06:32 Norepinephrine IV 8.5 mcg/min IV at calculated rate in Other; central line [address] 06:51 06:35 BP 151 / 73; Rate change 1.5 mcg/kg/min 10 10 06:54 06:20 Green cath inserted, using sterile technique, 16 Fr., by nv, balloon inflated, to km10 gravity drainage, km10 06:58 06:25 Norepinephrine IV 8.5 mcg/min IV at calculated rate in Other; Administered Via jb4 right groin central line. Started at 2mck/kg/min per physicians instructions. jb4
[2025-01-09 07:39] LABS: Specific Gravity 1.017 (1.005-1.030); Sqamous Epithelial <5 /HPF (None Seen); Urine Bacteria None Seen /HPF (<20); Urine Bilirubin NEGATIVE (Negative); Urine Blood Negative (Negative); Urine Clarity Extremely Turbid (Clear); Urine Color Yellow (Yellow); Urine Glucose NEGATIVE (Negative); Urine Ketones NEGATIVE (Negative); Urine Micro Reflex YN NO BILL MICROSCOPIC; Urine Mucus Slight /HPF (None Seen); Urine Nitrite NEGATIVE (Negative); Urine Protein NEGATIVE (Negative); Urine RBC <5 /HPF (None Seen); Urine Urobilinogen 1+ (Normal); Urine WBC <5 /HPF (<5); Urine pH 5.5 (5.0-7.0)
[2025-01-09] MEDS ORDERED: VITAMIN K (ADULT) 10 MG/ML ONE (07:44)
[2025-01-09] MEDS ORDERED: NA CHLORIDE 0.9% 500 ML ONE (08:30)
[2025-01-09] MEDS ORDERED: VANCOMYCIN 1 GM/VIAL ONE (08:30)
[2025-01-09 08:35] LABS: Thyroid Stimulating Hormone 33.2 uIU/mL (0.358-3.740)
[2025-01-09] MEDS ORDERED: D5W 1,000 ML with NA BICARB 8.4% 150 MEQ IV SCH (09:00)
--- NOTE | 2025-01-09 09:22 | RAD REPORT ---
EXAMINATION: ONE VIEW CHEST XR CLINICAL INDICATION: Male, 54 years old.,CHEST PAIN TECHNIQUE: Frontal chest projection is submitted. Examination is limited by patient positioning and t echnique. COMPARISON: No prior exam. FINDINGS: The lungs show mild nonspecific hazy opacities particularly at the upper lungs although suboptimal in spiratory effort somewhat limits evaluation. No pneumothorax or sizable effusion. The heart is normal in size. Mediastinal contours are unremarkable. IMPRESSION: Hazy nonspecific mild bilateral upper lung hazy opacities, could relate to mild pneumonitis
[2025-01-09 10:33] LABS: Anisocytosis 3+; Band Neutrophils 10 % (0-1); Blood Morphology Comment NOTED (NOT SEEN); Differential Total Cells Count 100; Dohle Bodies PRESENT; Lymphocytes 4 % (15-42); Macrocytosis 3+; Metamyelocytes 1 % (0-0); Monocytes 1 % (0-10); Myelocytes 3 % (0-0); Nucleated Red Blood Cells 4 /100WBC; Platelet Estimate ADEQ; Segmented Neutrophils 81 % (40-80); Toxic Granulation 3+
[2025-01-09 10:34] LABS: Hypochromasia 1+; Polychromasia 2+
[2025-01-09 10:35] LABS: Burr Cells 2+
[2025-01-09 10:49] VITALS: BP 101/62; TEMP 94.4; O2SAT 97
[2025-01-09 20:48] LABS: Arterial Blood Carboxyhemoglob 1.7 % (0-1.5); Blood Gas Oxyhemoglobin 95.8 % (94-97)
[2025-01-09 20:53] LABS: Blood Gas THB 4.3 g/dl (12-18)
--- NOTE | 2025-01-11 12:24 | EKG ---
Test Date: 2025-01-09 Test Time: 06:48:26 Machine [employer]er: MEASUREMENT RESULTS: Intervals: Rate: 93 NC: 136 QRSD: 98 QT: 410 QTc: 509 [place]: P: 86 NC: 136 QRS: 4 T: 84 INTERPRETIVE STATEMENTS: Normal sinus rhythm Septal infarct, age undetermined ST & T wave abnormality, consider anterior ischemia Prolonged QT Abnormal ECG No previous ECG available for comparison Electronically Signed On 01-11-25 12:19:58 CDT by Feliciano Armenta
== END 2025-01-09 10:13 ==
LOC: ER 05:54
PROC: 30233K1 Transfusion of Nonautologous Frozen Plasma into Peripheral Vein, Percutaneous Approach (ICD-10-PCS; principal; 2025-01-09)
PROC: 30233N1 Transfusion of Nonautologous Red Blood Cells into Peripheral Vein, Percutaneous Approach (ICD-10-PCS; 2025-01-09)
DX: D64.89 Other specified anemias (principal); R65.21 Severe sepsis with septic shock; J96.01 Acute respiratory failure with hypoxia; K72.00 Acute and subacute hepatic failure without coma; D68.9 Coagulation defect, unspecified; C78.00 Secondary malignant neoplasm of unspecified lung; C25.9 Malignant neoplasm of pancreas, unspecified
CPT/HCPCS: 93005; 87040 ×2; 85025; 81001; 36415; 86900; 86850; 87205 ×2; 85610; 86901; 82947; 83605; 85730; 86920 ×2; 84443; 84484; 84439; 80053; 83880; 86140; 71045; 82805; 51702; 96372; 99291; 36556; 94660; 36430; J2250; J3430; J3370; J0692; J2405; P9016 ×2; P9059 ×2; P9047; J7042; J7050; J7040; J7030